=== PATIENT | male | born 1965 | race African-American/Black ===

== ENCOUNTER 2021-06-23 13:20 | Inpatient (IN) ==
[2021-06-23 14:24] LABS: Basophils % 0.7 % (0.0-0.8); Eosinophils # 0.1 10*3/uL (0.0-0.87); Hematocrit 44.9 VOL% (42.0-52.0); Hemoglobin 13.8 GM/DL (14.0-18.0); Immature Granulocytes % 0.3 %; Immature Granulocytes Absolute 0.02 #; Lymphocytes # 1.3 10*3/uL (1.4-4.0); Lymphocytes % 22.4 % (21.2-54.2); Mean Corpuscular HGB Conc 30.7 GM/DL (32-36); Mean Platelet Volume 11.1 FL (9.6-12.0); Monocytes # 0.5 10*3/uL (0.11-0.8); Monocytes % 7.8 % (1.7-12.7); Neutrophils % 66.8 % (38.7-73.9); Platelet Count 300 T/CUMM (130-400); Red Blood Count 5.68 MC/CUMM (3.8-5.5); White Blood Count 5.9 T/CUMM (4-12)
[2021-06-23 14:46] LABS: Alanine Aminotransferase 26 U/L (16-61); Albumin 3.5 G/DL (3.4-5.0); Alkaline Phosphatase 93 U/L (45-117); Aspartate Amino Transferase 24 U/L (0-37); Blood Urea Nitrogen 18 MG/DL (7-18); Calcium 9.5 MG/DL (8.5-10.1); Carbon Dioxide 26 MMOL/L (21-32); Chloride 104 MMOL/L (98-107); Estimated Glom Filtration Rate 63 ML/MIN; Glucose 116 MG/DL (74-106); Osmolality,Calculated 277.7 MOS/KG (273-304); Potassium 3.4 MMOL/L (3.5-5.1); Sodium 138 MMOL/L (136-145)
[2021-06-23] MEDS ORDERED: LABETALOL 20 MG/4 ML SYRINGE IV STA (14:47)
[2021-06-23] MEDS ORDERED: LABETALOL 20 MG/4 ML SYRINGE IV ONE (14:47)
[2021-06-23 15:02] LABS: PT Patient Result 11.4 SECS (10.5-12.0); Partial Thromboplastin Time 26.6 SECS (23.8-32.1)
[2021-06-23] MEDS ORDERED: LABETALOL 100 MG/20 ML VIAL IV ONE (15:22)
[2021-06-23] MEDS ORDERED: hydrALAZINE 20 MG/1 ML VIAL ONE (15:43)
[2021-06-23] MEDS ORDERED: LABETALOL 20 MG/4 ML SYRINGE IV PRN (15:44)
[2021-06-23] MEDS ORDERED: hydrALAZINE 20 MG/1 ML VIAL IV PRN (15:46)
[2021-06-23] MEDS ORDERED: niCARdipine INJ 25 MG in SODIUM CHLORIDE 0.9% 240 ML IV PRN (15:49)
[2021-06-23] MEDS ORDERED: GLUCAGON 1 MG VIAL IM PRN (15:53)
[2021-06-23] MEDS ORDERED: ONDANSETRON 4 MG/2 ML VIAL IV PRN (15:53)
[2021-06-23] MEDS ORDERED: LABETALOL 100 MG/20 ML VIAL IV STA (15:57)
[2021-06-23] MEDS ORDERED: hydrALAZINE 20 MG/1 ML VIAL IV STA (15:58)
[2021-06-23] MEDS ORDERED: DEXTROSE 10% 250 ML BAG IV PRN (16:02)
[2021-06-23 16:37] LABS: Risk Ratio 3.89; Thyroid Stimulating Hormone 3.69 uIU/ml (0.358-3.74)
[2021-06-23] MEDS ORDERED: niCARdipine 25 MG/10 ML VIAL IV ONE (16:51)
[2021-06-23] MEDS ORDERED: LACTATED RINGERS 1,000 ML IV SCH (17:00)
[2021-06-23] MEDS: niCARdipine INJ 25 MG in SODIUM CHLORIDE 0.9% 240 ML IV PRN ×2 (17:00→21:07)
[2021-06-23] MEDS ORDERED: ASPIRIN 300 MG SUPP RECTAL STA ×2 (17:20→22:36)
[2021-06-23] MEDS ORDERED: INSULIN LISPRO 100 UNIT/ML SUBCUT SCH (18:00)
[2021-06-23] MEDS: ASPIRIN CHEW 81 MG TABLET PO SCH (18:33)
[2021-06-23] MEDS ORDERED: ETOMIDATE 20 MG/10 ML VIAL IV ONE ×2 (18:56→19:35)
[2021-06-23] MEDS ORDERED: SUCCINYLCHOLINE 200 MG/10 ML VIAL ONE (18:57)
[2021-06-23] MEDS ORDERED: MIDAZOLAM 100 MG in SODIUM CHLORIDE 0.9% 80 ML IV PRN (19:01)
[2021-06-23] MEDS ORDERED: ROCURONIUM 100 MG/10 ML VIAL IV ONE (19:12)
[2021-06-23] MEDS ORDERED: VECURONIUM 10 MG VIAL IV ONE (19:18)
[2021-06-23] MEDS ORDERED: SUCCINYLCHOLINE 200 MG/10 ML VIAL IV ONE (19:39)
[2021-06-23] MEDS: ENOXAPARIN 40 MG/0.4 ML SYRINGE SUBCUT SCH (20:02)
[2021-06-23 20:10] LABS: ABG Base Excess 2.2 MMOL/L (-2.5-2.5); ABG HCO3 26.4 MMOL/L (20-26); ABG Oxygen Saturation 99.8 % (95-100); ABG PCO2 40.3 MM HG (35-48); ABG PH 7.428 (7.35-7.45); ABG TCO2 23.1 MMOL/L (23-27)
[2021-06-23] MEDS: ATORVASTATIN 80 MG TABLET PO SCH (22:43)
[2021-06-23 23:12] LABS: RBC,Urine 3 /HPF (0-4)
[2021-06-23 23:13] LABS: Barbiturates Screen,Urine Negative (Negative); Benzodiazepines Screen,Urine Negative (Negative); Bilirubin,Urine Negative (Negative); Cannabinoid Screen,Urine Negative (Negative); Glucose,Urine (UA) 250 mg/dL (Negative); Ketones,Urine 15 mg/dL (Negative); Nitrite,Urine Negative (Negative); Opiate Screen,Urine Negative (Negative); Phencyclidine Screen,Urine Negative (Negative); Protein,Urine 100 MG/DL; Urine Appearance Clear (Clear); Urine Color Yellow (Yellow); Urine Specific Gravity 1.015 (1.001-1.035)
[2021-06-23 23:14] LABS: Blood, Urine Trace mg/dL (Negative)
[2021-06-24 03:31] LABS: ABG Base Excess 2.4 MMOL/L (-2.5-2.5); ABG HCO3 26.6 MMOL/L (20-26); ABG Oxygen Saturation 99.8 % (95-100); ABG PH 7.491 (7.35-7.45); ABG TCO2 22.1 MMOL/L (23-27)
[2021-06-24 04:09] LABS: Calcium 8.5 MG/DL (8.5-10.1); Osmolality,Calculated 276.8 MOS/KG (273-304); Potassium 3.7 MMOL/L (3.5-5.1)
[2021-06-24 05:47] LABS: Basophils % 0.4 % (0.0-0.8); Eosinophils % 0.1 % (0.00-10.9); Hematocrit 37.8 VOL% (42.0-52.0); Immature Granulocytes % 0.4 %; Immature Granulocytes Absolute 0.03 #; Lymphocytes # 1.1 10*3/uL (1.4-4.0); Lymphocytes % 12.5 % (21.2-54.2); Mean Corpuscular HGB Conc 31.7 GM/DL (32-36); Mean Corpuscular Volume 78.4 FL (87-102); Mean Platelet Volume 11.2 FL (9.6-12.0); Monocytes # 0.7 10*3/uL (0.11-0.8); Monocytes % 8.3 % (1.7-12.7); Neutrophils % 78.3 % (38.7-73.9); Platelet Count 267 T/CUMM (130-400); Red Blood Count 4.82 MC/CUMM (3.8-5.5); Red Cell Distribution Width 16.1 % (9.3-17.3); White Blood Count 8.4 T/CUMM (4-12)
[2021-06-24] MEDS ORDERED: PANTOPRAZOLE 40 MG TABLET PO SCH (09:00)
[2021-06-24] MEDS: PANTOPRAZOLE 40 MG VIAL IV SCH (09:20)
[2021-06-24] MEDS: ASPIRIN CHEW 81 MG TABLET PO SCH (09:21)
[2021-06-24] MEDS: LACTATED RINGERS 1,000 ML IV SCH (14:03)
[2021-06-24] MEDS: niCARdipine INJ 25 MG in SODIUM CHLORIDE 0.9% 240 ML IV PRN (14:59)
[2021-06-24] MEDS: ENOXAPARIN 40 MG/0.4 ML SYRINGE SUBCUT SCH (18:38)
[2021-06-24] MEDS: ATORVASTATIN 80 MG TABLET PO SCH (20:29)
[2021-06-24] MEDS: ACETAMINOPHEN 325 MG TABLET PO PRN (20:30)
[2021-06-25] MEDS: LACTATED RINGERS 1,000 ML IV SCH ×3 (00:02→21:55)
[2021-06-25 03:40] LABS: ABG HCO3 27.1 MMOL/L (20-26); ABG Oxygen Saturation 99.6 % (95-100); ABG PCO2 35.7 MM HG (35-48); ABG PH 7.476 (7.35-7.45); ABG TCO2 23.4 MMOL/L (23-27)
[2021-06-25 04:38] LABS: Basophils % 0.2 % (0.0-0.8); Hematocrit 38.7 VOL% (42.0-52.0); Hemoglobin 11.8 GM/DL (14.0-18.0); Immature Granulocytes % 0.9 %; Immature Granulocytes Absolute 0.18 #; Lymphocytes # 0.7 10*3/uL (1.4-4.0); Lymphocytes % 3.8 % (21.2-54.2); Mean Corpuscular HGB Conc 30.5 GM/DL (32-36); Mean Platelet Volume 11.5 FL (9.6-12.0); Monocytes # 1.2 10*3/uL (0.11-0.8); Monocytes % 6.4 % (1.7-12.7); Neutrophils % 88.7 % (38.7-73.9); Platelet Count 247 T/CUMM (130-400); Red Blood Count 4.78 MC/CUMM (3.8-5.5); Red Cell Distribution Width 16.7 % (9.3-17.3); White Blood Count 19.4 T/CUMM (4-12)
[2021-06-25 05:00] LABS: Calcium 8.4 MG/DL (8.5-10.1); Osmolality,Calculated 287.3 MOS/KG (273-304); Potassium 3.2 MMOL/L (3.5-5.1)
[2021-06-25 05:18] LABS: Band Neutrophils 1 % (0-10); Hypochromia Slight; Lymphocytes 2 % (20-55); Microcytosis Slight; Platelet Estimate Adequate; Total Cells Counted 100
[2021-06-25] MEDS ORDERED: MAGNESIUM SULF RIDER 4 GM/100 ML PREMIX IV PRN (08:33)
[2021-06-25] MEDS: PANTOPRAZOLE 40 MG VIAL IV SCH (08:46)
[2021-06-25] MEDS: METOPROLOL TARTRATE 25 MG TABLET PER TUBE SCH ×2 (08:47→21:28)
[2021-06-25] MEDS: amLODIPine 5 MG TABLET PER TUBE SCH (08:47)
[2021-06-25] MEDS: POTASSIUM BICARB EFFERVESCENT 20 MEQ TAB.EFF PER TUBE PRN ×4 (08:47→21:27)
[2021-06-25] MEDS: MAGNESIUM SULF RIDER 2 GM/50 ML PREMIX IV PRN (08:47)
[2021-06-25] MEDS: ASPIRIN CHEW 81 MG TABLET PO SCH (08:47)
[2021-06-25] MEDS: hydrALAZINE 20 MG/1 ML VIAL IV PRN ×2 (10:12→17:15)
[2021-06-25] MEDS ORDERED: chlorproMAZINE 25 MG TABLET PO SCH (15:00)
[2021-06-25] MEDS: ENOXAPARIN 40 MG/0.4 ML SYRINGE SUBCUT SCH (17:15)
[2021-06-25] MEDS: ACETAMINOPHEN 325 MG TABLET PO PRN (18:20)
[2021-06-25] MEDS: cefTRIAXone 1,000 MG in SODIUM CHLORIDE 0.9% 100 ML IV SCH (21:27)
[2021-06-25] MEDS: chlorproMAZINE 25 MG TABLET PO PRN (21:28)
[2021-06-25] MEDS: ATORVASTATIN 80 MG TABLET PO SCH (21:28)
[2021-06-25] MEDS ORDERED: LORazepam 2 MG/1 ML VIAL IV ONE (22:47)
[2021-06-26] MEDS: LORazepam 2 MG/1 ML VIAL IV PRN ×2 (03:32→17:40)
[2021-06-26 04:11] LABS: ABG Base Excess 3.8 MMOL/L (-2.5-2.5); ABG HCO3 27.9 MMOL/L (20-26); ABG Oxygen Saturation 98.9 % (95-100); ABG PCO2 40.8 MM HG (35-48); ABG PH 7.447 (7.35-7.45); ABG TCO2 25.2 MMOL/L (23-27); Allen Test Positive; Pt O2 Delivery Device Ventilator
[2021-06-26] MEDS: hydrALAZINE 20 MG/1 ML VIAL IV PRN (04:11)
[2021-06-26] MEDS: ACETAMINOPHEN 325 MG TABLET PO PRN (04:46)
[2021-06-26 06:57] LABS: Basophils % 0.3 % (0.0-0.8); Eosinophils % 0.2 % (0.00-10.9); Hemoglobin 10.7 GM/DL (14.0-18.0); Immature Granulocytes % 0.8 %; Immature Granulocytes Absolute 0.09 #; Lymphocytes # 0.5 10*3/uL (1.4-4.0); Lymphocytes % 3.8 % (21.2-54.2); Mean Corpuscular HGB Conc 30.6 GM/DL (32-36); Mean Corpuscular Volume 80.8 FL (87-102); Mean Platelet Volume 10.6 FL (9.6-12.0); Monocytes # 0.7 10*3/uL (0.11-0.8); Monocytes % 5.9 % (1.7-12.7); Platelet Count 201 T/CUMM (130-400); Red Blood Count 4.33 MC/CUMM (3.8-5.5); Red Cell Distribution Width 16.8 % (9.3-17.3); White Blood Count 11.8 T/CUMM (4-12)
[2021-06-26 07:06] LABS: Calcium 8.3 MG/DL (8.5-10.1); Osmolality,Calculated 282.7 MOS/KG (273-304); Potassium 3.6 MMOL/L (3.5-5.1)
[2021-06-26] MEDS: LACTATED RINGERS 1,000 ML IV SCH ×3 (07:09→17:40)
[2021-06-26 07:17] LABS: Calcium 8.5 MG/DL (8.5-10.1); Osmolality,Calculated 281.7 MOS/KG (273-304); Potassium 3.6 MMOL/L (3.5-5.1)
[2021-06-26] MEDS: chlorproMAZINE 25 MG TABLET PO PRN (08:00)
[2021-06-26] MEDS: METOPROLOL TARTRATE 25 MG TABLET PER TUBE SCH ×2 (08:03→21:22)
[2021-06-26] MEDS: amLODIPine 5 MG TABLET PER TUBE SCH (08:03)
[2021-06-26] MEDS: PANTOPRAZOLE 40 MG VIAL IV SCH (08:03)
[2021-06-26] MEDS: ASPIRIN CHEW 81 MG TABLET PO SCH (08:03)
[2021-06-26] MEDS: POTASSIUM BICARB EFFERVESCENT 20 MEQ TAB.EFF PER TUBE PRN (08:03)
[2021-06-26 09:22] LABS: Hypochromia 2+; Lymphocytes 3 % (20-55); Nucleated Red Blood Cells 1 (0-5); Total Cells Counted 100
[2021-06-26 09:23] LABS: Microcytosis 1+; Platelet Estimate Normal; Target Cells Few; Tear Drop Cells Few
[2021-06-26] MEDS ORDERED: chlorproMAZINE 25 MG TABLET PO PRN (13:28)
[2021-06-26 15:26] LABS: ABG Base Excess 3.3 MMOL/L (-2.5-2.5); ABG HCO3 27.4 MMOL/L (20-26); ABG PCO2 41.4 MM HG (35-48); ABG PH 7.435 (7.35-7.45); ABG TCO2 25.1 MMOL/L (23-27)
[2021-06-26] MEDS: ENOXAPARIN 40 MG/0.4 ML SYRINGE SUBCUT SCH (17:40)
[2021-06-26] MEDS: ATORVASTATIN 80 MG TABLET PO SCH (21:21)
[2021-06-26] MEDS: cefTRIAXone 1,000 MG in SODIUM CHLORIDE 0.9% 100 ML IV SCH (21:22)
[2021-06-27 04:06] LABS: ABG Base Excess 3.5 MMOL/L (-2.5-2.5); ABG HCO3 27.6 MMOL/L (20-26); ABG Oxygen Saturation 99.4 % (95-100); ABG PCO2 39.4 MM HG (35-48); ABG PH 7.454 (7.35-7.45)
[2021-06-27] MEDS: LACTATED RINGERS 1,000 ML IV SCH ×4 (04:35→23:46)
[2021-06-27 04:54] LABS: Basophils % 0.2 % (0.0-0.8); Eosinophils # 0.3 10*3/uL (0.0-0.87); Eosinophils % 2.8 % (0.00-10.9); Hematocrit 31.5 VOL% (42.0-52.0); Hemoglobin 9.7 GM/DL (14.0-18.0); Immature Granulocytes % 0.3 %; Immature Granulocytes Absolute 0.03 #; Lymphocytes # 0.7 10*3/uL (1.4-4.0); Lymphocytes % 7.3 % (21.2-54.2); Mean Corpuscular HGB Conc 30.8 GM/DL (32-36); Mean Corpuscular Volume 80.2 FL (87-102); Mean Platelet Volume 10.6 FL (9.6-12.0); Monocytes # 0.5 10*3/uL (0.11-0.8); Monocytes % 5.5 % (1.7-12.7); Neutrophils % 83.9 % (38.7-73.9); Platelet Count 190 T/CUMM (130-400); Red Blood Count 3.93 MC/CUMM (3.8-5.5); Red Cell Distribution Width 16.9 % (9.3-17.3); White Blood Count 9.8 T/CUMM (4-12)
[2021-06-27] MEDS: LORazepam 2 MG/1 ML VIAL IV PRN ×2 (05:01→08:37)
[2021-06-27 05:21] LABS: Calcium 8.2 MG/DL (8.5-10.1); Osmolality,Calculated 287.5 MOS/KG (273-304); Potassium 3.7 MMOL/L (3.5-5.1)
[2021-06-27 05:22] LABS: Eosinophils 2 % (0-10); Hypochromia 1+; Lymphocytes 8 % (20-55); Microcytosis 1+; Platelet Estimate Adequate; Total Cells Counted 100
[2021-06-27] MEDS: hydrALAZINE 20 MG/1 ML VIAL IV PRN ×2 (05:35→11:09)
[2021-06-27] MEDS: POTASSIUM BICARB EFFERVESCENT 20 MEQ TAB.EFF PER TUBE PRN (06:14)
[2021-06-27] MEDS ORDERED: HALOPERIDOL 5 MG/ML AMP IV PRN (08:43)
[2021-06-27] MEDS ORDERED: HALOPERIDOL 5 MG/ML AMP IM PRN (09:00)
[2021-06-27] MEDS: HALOPERIDOL 5 MG/ML AMP IV PRN (09:01)
[2021-06-27] MEDS: PANTOPRAZOLE 40 MG VIAL IV SCH (09:01)
[2021-06-27] MEDS: amLODIPine 5 MG TABLET PER TUBE SCH (09:01)
[2021-06-27] MEDS: DOCUSATE SODIUM 100 MG/10 ML UDCUP PO SCH ×2 (09:01→22:01)
[2021-06-27] MEDS: ASPIRIN CHEW 81 MG TABLET PO SCH (09:01)
[2021-06-27] MEDS: METOPROLOL TARTRATE 25 MG TABLET PER TUBE SCH ×2 (09:01→22:01)
[2021-06-27] MEDS ORDERED: DEXMEDETOMIDINE 200 MCG in SODIUM CHLORIDE 0.9% 48 ML IV PRN (09:18)
[2021-06-27] MEDS: DEXMEDETOMIDINE 400 MCG in SODIUM CHLORIDE 0.9% 96 ML IV PRN (15:04)
[2021-06-27 16:51] LABS: Calcium 8.4 MG/DL (8.5-10.1); Osmolality,Calculated 287.4 MOS/KG (273-304); Potassium 4.4 MMOL/L (3.5-5.1)
[2021-06-27] MEDS: ENOXAPARIN 40 MG/0.4 ML SYRINGE SUBCUT SCH (18:11)
[2021-06-27] MEDS: cefTRIAXone 1,000 MG in SODIUM CHLORIDE 0.9% 100 ML IV SCH (22:01)
[2021-06-27] MEDS: ATORVASTATIN 80 MG TABLET PO SCH (22:01)
[2021-06-28] MEDS: INSULIN REGULAR 100 UNIT/ML SUBCUT SCH ×4 (00:10→18:12)
[2021-06-28] MEDS: DEXMEDETOMIDINE 400 MCG in SODIUM CHLORIDE 0.9% 96 ML IV PRN ×3 (00:30→20:50)
[2021-06-28] MEDS: LACTATED RINGERS 1,000 ML IV SCH ×3 (02:00→22:15)
[2021-06-28] MEDS: hydrALAZINE 20 MG/1 ML VIAL IV PRN ×2 (03:38→22:12)
[2021-06-28 03:43] LABS: ABG Base Excess 2.4 MMOL/L (-2.5-2.5); ABG HCO3 26.5 MMOL/L (20-26); ABG Oxygen Saturation 99.1 % (95-100); ABG PCO2 46.9 MM HG (35-48); ABG PH 7.383 (7.35-7.45); ABG TCO2 25.5 MMOL/L (23-27)
[2021-06-28 06:01] LABS: Basophils % 0.6 % (0.0-0.8); Eosinophils # 0.3 10*3/uL (0.0-0.87); Eosinophils % 4.5 % (0.00-10.9); Hematocrit 33.6 VOL% (42.0-52.0); Immature Granulocytes % 1.1 %; Immature Granulocytes Absolute 0.07 #; Lymphocytes # 0.5 10*3/uL (1.4-4.0); Lymphocytes % 7.8 % (21.2-54.2); Mean Corpuscular HGB Conc 29.8 GM/DL (32-36); Mean Platelet Volume 11.9 FL (9.6-12.0); Monocytes # 0.5 10*3/uL (0.11-0.8); Monocytes % 7.7 % (1.7-12.7); Neutrophils % 78.3 % (38.7-73.9); Platelet Count 212 T/CUMM (130-400); Red Cell Distribution Width 16.9 % (9.3-17.3); White Blood Count 6.7 T/CUMM (4-12)
[2021-06-28 06:28] LABS: Band Neutrophils 2 % (0-10); Eosinophils 3 % (0-10); Hypochromia 1+; Lymphocytes 6 % (20-55); Microcytosis 1+; Total Cells Counted 100
[2021-06-28 06:29] LABS: Platelet Estimate Normal
[2021-06-28 06:35] LABS: Calcium 8.6 MG/DL (8.5-10.1); Osmolality,Calculated 289.4 MOS/KG (273-304); Potassium 4.5 MMOL/L (3.5-5.1)
[2021-06-28 06:38] LABS: Calcium 8.2 MG/DL (8.5-10.1); Osmolality,Calculated 288.4 MOS/KG (273-304); Potassium 4.5 MMOL/L (3.5-5.1)
[2021-06-28] MEDS: METOPROLOL TARTRATE 25 MG TABLET PER TUBE SCH ×2 (09:42→20:52)
[2021-06-28] MEDS: amLODIPine 5 MG TABLET PER TUBE SCH (09:42)
[2021-06-28] MEDS: ASPIRIN CHEW 81 MG TABLET PO SCH (09:42)
[2021-06-28] MEDS: DOCUSATE SODIUM 100 MG/10 ML UDCUP PO SCH ×2 (09:42→20:52)
[2021-06-28] MEDS: PANTOPRAZOLE 40 MG VIAL IV SCH (09:42)
[2021-06-28] MEDS: ENOXAPARIN 40 MG/0.4 ML SYRINGE SUBCUT SCH (18:14)
[2021-06-28] MEDS: ATORVASTATIN 80 MG TABLET PO SCH (20:52)
[2021-06-28] MEDS: cefTRIAXone 1,000 MG in SODIUM CHLORIDE 0.9% 100 ML IV SCH (20:53)
[2021-06-28] MEDS: LORazepam 2 MG/1 ML VIAL IV PRN (21:12)
[2021-06-29] MEDS: INSULIN REGULAR 100 UNIT/ML SUBCUT SCH ×4 (00:46→18:01)
[2021-06-29] MEDS: HALOPERIDOL 5 MG/ML AMP IV PRN ×3 (00:48→17:25)
[2021-06-29] MEDS: LORazepam 2 MG/1 ML VIAL IV PRN (03:17)
[2021-06-29] MEDS ORDERED: LABETALOL 20 MG/4 ML SYRINGE IV ONE (03:32)
[2021-06-29 04:01] LABS: ABG Base Excess 1.5 MMOL/L (-2.5-2.5); ABG HCO3 25.8 MMOL/L (20-26); ABG Oxygen Saturation 99.4 % (95-100); ABG PCO2 34.5 MM HG (35-48); ABG PH 7.467 (7.35-7.45); ABG TCO2 22.6 MMOL/L (23-27)
[2021-06-29 05:21] LABS: Basophils % 0.3 % (0.0-0.8); Eosinophils # 0.2 10*3/uL (0.0-0.87); Eosinophils % 1.9 % (0.00-10.9); Hematocrit 32.3 VOL% (42.0-52.0); Hemoglobin 9.8 GM/DL (14.0-18.0); Immature Granulocytes % 1.4 %; Immature Granulocytes Absolute 0.12 #; Lymphocytes # 0.6 10*3/uL (1.4-4.0); Lymphocytes % 6.6 % (21.2-54.2); Mean Corpuscular HGB Conc 30.3 GM/DL (32-36); Mean Corpuscular Volume 80.8 FL (87-102); Mean Platelet Volume 11.8 FL (9.6-12.0); Monocytes # 0.8 10*3/uL (0.11-0.8); Monocytes % 8.5 % (1.7-12.7); NRBC # 0.02 10*3/uL; Neutrophils % 81.3 % (38.7-73.9); Platelet Count 209 T/CUMM (130-400); Red Cell Distribution Width 16.7 % (9.3-17.3); White Blood Count 8.9 T/CUMM (4-12)
[2021-06-29 05:39] LABS: Calcium 8.4 MG/DL (8.5-10.1); Osmolality,Calculated 287.7 MOS/KG (273-304); Potassium 4.2 MMOL/L (3.5-5.1)
[2021-06-29 06:03] LABS: Hypochromia 2+; Lymphocytes 5 % (20-55); Microcytosis 1+; Nucleated Red Blood Cells 1 (0-5); Total Cells Counted 100
[2021-06-29 06:04] LABS: Platelet Estimate Normal
[2021-06-29] MEDS: MAGNESIUM SULF RIDER 2 GM/50 ML PREMIX IV PRN (06:31)
[2021-06-29] MEDS: DEXMEDETOMIDINE 400 MCG in SODIUM CHLORIDE 0.9% 96 ML IV PRN ×2 (07:00→20:15)
[2021-06-29] MEDS: LACTATED RINGERS 1,000 ML IV SCH ×2 (07:20→17:23)
[2021-06-29] MEDS: PANTOPRAZOLE 40 MG VIAL IV SCH (09:31)
[2021-06-29] MEDS: ASPIRIN CHEW 81 MG TABLET PO SCH (09:32)
[2021-06-29] MEDS: METOPROLOL TARTRATE 25 MG TABLET PER TUBE SCH ×2 (09:32→21:11)
[2021-06-29] MEDS: DOCUSATE SODIUM 100 MG/10 ML UDCUP PO SCH ×2 (09:32→21:11)
[2021-06-29] MEDS: amLODIPine 5 MG TABLET PER TUBE SCH (09:32)
[2021-06-29] MEDS: ACETAMINOPHEN 325 MG TABLET PO PRN (13:29)
[2021-06-29] MEDS: LEVOFLOXACIN INJ 750 MG/150 ML PREMIX IV SCH (17:23)
[2021-06-29] MEDS: ENOXAPARIN 40 MG/0.4 ML SYRINGE SUBCUT SCH (17:24)
[2021-06-29] MEDS: ATORVASTATIN 80 MG TABLET PO SCH (21:11)
[2021-06-29] MEDS: chlorproMAZINE 25 MG TABLET PO SCH (21:14)
[2021-06-30] MEDS: INSULIN REGULAR 100 UNIT/ML SUBCUT SCH ×4 (00:37→17:54)
[2021-06-30] MEDS ORDERED: FUROSEMIDE 20 MG/2 ML VIAL IV ONE ×2 (01:45→03:15)
[2021-06-30 02:28] LABS: Alanine Aminotransferase 228 U/L (16-61); Albumin 1.5 G/DL (3.4-5.0); Alkaline Phosphatase 143 U/L (45-117); Aspartate Amino Transferase 150 U/L (0-37); Bilirubin,Total < 0.39 MG/DL (0.20-1.00); Blood Urea Nitrogen 32 MG/DL (7-18); Calcium 8.1 MG/DL (8.5-10.1); Carbon Dioxide 28 MMOL/L (21-32); Chloride 106 MMOL/L (98-107); Estimated Glom Filtration Rate 80 ML/MIN; Glucose 193 MG/DL (74-106); Potassium 4.6 MMOL/L (3.5-5.1); Sodium 136 MMOL/L (136-145); Total Protein 6.1 G/DL (6.4-8.2)
[2021-06-30] MEDS ORDERED: ALBUMIN 25% 25 GM/100 ML VIAL IV ONE (02:38)
[2021-06-30 04:52] LABS: Basophils % 0.4 % (0.0-0.8); Eosinophils # 0.2 10*3/uL (0.0-0.87); Eosinophils % 1.6 % (0.00-10.9); Hematocrit 31.5 VOL% (42.0-52.0); Hemoglobin 9.5 GM/DL (14.0-18.0); Immature Granulocytes % 2.3 %; Immature Granulocytes Absolute 0.22 #; Lymphocytes # 0.8 10*3/uL (1.4-4.0); Lymphocytes % 8.8 % (21.2-54.2); Mean Corpuscular HGB Conc 30.2 GM/DL (32-36); Mean Platelet Volume 11.3 FL (9.6-12.0); Monocytes # 0.9 10*3/uL (0.11-0.8); Monocytes % 9.9 % (1.7-12.7); Platelet Count 234 T/CUMM (130-400); Red Blood Count 3.89 MC/CUMM (3.8-5.5); Red Cell Distribution Width 16.7 % (9.3-17.3); White Blood Count 9.4 T/CUMM (4-12)
[2021-06-30 05:06] LABS: Calcium 8.2 MG/DL (8.5-10.1); Potassium 4.4 MMOL/L (3.5-5.1)
[2021-06-30 05:29] LABS: Eosinophils 1 % (0-10); Hypochromia 1+; Lymphocytes 3 % (20-55); Microcytosis 1+; Platelet Estimate Adequate; Total Cells Counted 100
[2021-06-30 05:39] LABS: ABG Base Excess 3.4 MMOL/L (-2.5-2.5); ABG HCO3 27.4 MMOL/L (20-26); ABG PCO2 43.1 MM HG (35-48); ABG PH 7.423 (7.35-7.45); ABG TCO2 25.6 MMOL/L (23-27)
[2021-06-30] MEDS: chlorproMAZINE 25 MG TABLET PO SCH ×2 (08:06→20:30)
[2021-06-30] MEDS: METOPROLOL TARTRATE 25 MG TABLET PER TUBE SCH ×2 (08:06→20:30)
[2021-06-30] MEDS: ASPIRIN CHEW 81 MG TABLET PO SCH (08:06)
[2021-06-30] MEDS: DOCUSATE SODIUM 100 MG/10 ML UDCUP PO SCH ×2 (08:06→20:30)
[2021-06-30] MEDS: PANTOPRAZOLE 40 MG VIAL IV SCH (08:06)
[2021-06-30] MEDS: amLODIPine 5 MG TABLET PER TUBE SCH (08:06)
[2021-06-30] MEDS: hydrALAZINE 20 MG/1 ML VIAL IV PRN (09:12)
[2021-06-30] MEDS: DEXMEDETOMIDINE 200 MCG in SODIUM CHLORIDE 0.9% 48 ML IV PRN ×3 (14:08→23:05)
[2021-06-30] MEDS: LEVOFLOXACIN INJ 750 MG/150 ML PREMIX IV SCH (14:39)
[2021-06-30] MEDS: ENOXAPARIN 40 MG/0.4 ML SYRINGE SUBCUT SCH (17:54)
[2021-06-30] MEDS: ATORVASTATIN 80 MG TABLET PO SCH (20:30)
[2021-07-01] MEDS: INSULIN REGULAR 100 UNIT/ML SUBCUT SCH ×5 (00:16→23:19)
[2021-07-01] MEDS: DEXMEDETOMIDINE 200 MCG in SODIUM CHLORIDE 0.9% 48 ML IV PRN (04:03)
[2021-07-01 04:27] LABS: ABG Base Excess 3.4 MMOL/L (-2.5-2.5); ABG HCO3 27.5 MMOL/L (20-26); ABG Oxygen Saturation 98.5 % (95-100); ABG PCO2 43.7 MM HG (35-48); ABG TCO2 25.7 MMOL/L (23-27)
[2021-07-01 04:49] LABS: Basophils % 0.3 % (0.0-0.8); Eosinophils # 0.5 10*3/uL (0.0-0.87); Hematocrit 33.8 VOL% (42.0-52.0); Hemoglobin 10.2 GM/DL (14.0-18.0); Immature Granulocytes % 4.6 %; Immature Granulocytes Absolute 0.55 #; Lymphocytes # 1.2 10*3/uL (1.4-4.0); Lymphocytes % 10.2 % (21.2-54.2); Mean Corpuscular HGB Conc 30.2 GM/DL (32-36); Mean Corpuscular Volume 80.9 FL (87-102); Mean Platelet Volume 11.9 FL (9.6-12.0); Monocytes # 1.4 10*3/uL (0.11-0.8); Monocytes % 11.6 % (1.7-12.7); NRBC # 0.02 10*3/uL; Neutrophils % 69.3 % (38.7-73.9); Platelet Count 210 T/CUMM (130-400); Red Blood Count 4.18 MC/CUMM (3.8-5.5); Red Cell Distribution Width 16.8 % (9.3-17.3); White Blood Count 11.9 T/CUMM (4-12)
[2021-07-01 05:01] LABS: Calcium 8.6 MG/DL (8.5-10.1); Osmolality,Calculated 287.2 MOS/KG (273-304); Potassium 4.6 MMOL/L (3.5-5.1)
[2021-07-01 05:08] LABS: Band Neutrophils 3 % (0-10); Eosinophils 4 % (0-10); Hypochromia Slight; Lymphocytes 5 % (20-55); Microcytosis Slight; Platelet Estimate Adequate; Total Cells Counted 100
[2021-07-01] MEDS: HALOPERIDOL 5 MG/ML AMP IV PRN (05:30)
[2021-07-01] MEDS ORDERED: POTASSIUM CHLORIDE 20 MEQ TABLET PO SCH ×2 (08:00→10:00)
[2021-07-01] MEDS: PANTOPRAZOLE 40 MG VIAL IV SCH (09:12)
[2021-07-01] MEDS: METOPROLOL TARTRATE 25 MG TABLET PER TUBE SCH (09:13)
[2021-07-01] MEDS: DOCUSATE SODIUM 100 MG/10 ML UDCUP PO SCH ×2 (09:13→20:40)
[2021-07-01] MEDS: amLODIPine 5 MG TABLET PER TUBE SCH (09:13)
[2021-07-01] MEDS: chlorproMAZINE 25 MG TABLET PO SCH ×2 (09:13→20:40)
[2021-07-01] MEDS: ASPIRIN CHEW 81 MG TABLET PO SCH (09:13)
[2021-07-01] MEDS: LACTATED RINGERS 1,000 ML IV SCH ×2 (09:59→19:30)
[2021-07-01] MEDS: hydrALAZINE 20 MG/1 ML VIAL IV PRN ×2 (11:04→17:06)
[2021-07-01] MEDS: LEVOFLOXACIN INJ 750 MG/150 ML PREMIX IV SCH (15:13)
[2021-07-01] MEDS: amLODIPine 10 MG TABLET PER TUBE SCH (15:39)
[2021-07-01] MEDS: METOPROLOL TARTRATE 50 MG TABLET PER TUBE SCH ×2 (15:39→20:40)
[2021-07-01] MEDS ORDERED: FUROSEMIDE 40 MG/5 ML UDCUP PER TUBE SCH (16:00)
[2021-07-01] MEDS: FUROSEMIDE 40 MG TABLET PER TUBE SCH (17:11)
[2021-07-01] MEDS: ATORVASTATIN 80 MG TABLET PO SCH (20:40)
[2021-07-02] MEDS: HALOPERIDOL 5 MG/ML AMP IV PRN ×2 (01:47→06:20)
[2021-07-02 03:58] LABS: Basophils % 0.2 % (0.0-0.8); Eosinophils # 0.5 10*3/uL (0.0-0.87); Eosinophils % 3.9 % (0.00-10.9); Hematocrit 33.1 VOL% (42.0-52.0); Immature Granulocytes % 4.8 %; Immature Granulocytes Absolute 0.58 #; Lymphocytes # 0.8 10*3/uL (1.4-4.0); Mean Corpuscular HGB Conc 30.2 GM/DL (32-36); Mean Corpuscular Volume 80.5 FL (87-102); Mean Platelet Volume 11.5 FL (9.6-12.0); Monocytes # 1.6 10*3/uL (0.11-0.8); Monocytes % 13.2 % (1.7-12.7); Neutrophils % 70.9 % (38.7-73.9); Platelet Count 256 T/CUMM (130-400); Red Blood Count 4.11 MC/CUMM (3.8-5.5); Red Cell Distribution Width 16.9 % (9.3-17.3); White Blood Count 12.1 T/CUMM (4-12)
[2021-07-02 04:06] LABS: ABG Base Excess 3.6 MMOL/L (-2.5-2.5); ABG HCO3 27.7 MMOL/L (20-26); ABG Oxygen Saturation 98.8 % (95-100); ABG PCO2 40.2 MM HG (35-48); ABG PH 7.456 (7.35-7.45); ABG PO2 141.6 MM HG (80-95); ABG TCO2 28.9 MMOL/L (23-27); Allen Test Positive; Pt O2 Delivery Device Ventilator
[2021-07-02 04:17] LABS: Calcium 8.9 MG/DL (8.5-10.1); Osmolality,Calculated 282.1 MOS/KG (273-304); Potassium 4.5 MMOL/L (3.5-5.1)
[2021-07-02] MEDS: hydrALAZINE 20 MG/1 ML VIAL IV PRN ×2 (04:34→22:38)
[2021-07-02 04:52] LABS: Eosinophils 3 % (0-10); Lymphocytes 9 % (20-55); Total Cells Counted 100
[2021-07-02 04:53] LABS: Hypochromia 1+; Platelet Estimate Adequate
[2021-07-02] MEDS: INSULIN REGULAR 100 UNIT/ML SUBCUT SCH ×3 (05:24→17:55)
[2021-07-02] MEDS: LACTATED RINGERS 1,000 ML IV SCH ×2 (05:44→15:45)
[2021-07-02] MEDS ORDERED: MIDAZOLAM 2 MG/2 ML VIAL IV ONE (07:00)
[2021-07-02] MEDS ORDERED: MIDAZOLAM 10 MG/2 ML VIAL ONE (07:03)
[2021-07-02] MEDS: PANTOPRAZOLE 40 MG VIAL IV SCH (09:20)
[2021-07-02] MEDS: METOPROLOL TARTRATE 50 MG TABLET PER TUBE SCH (09:25)
[2021-07-02] MEDS: ASPIRIN CHEW 81 MG TABLET PO SCH (09:25)
[2021-07-02] MEDS: chlorproMAZINE 25 MG TABLET PO SCH ×2 (09:25→20:13)
[2021-07-02] MEDS: amLODIPine 10 MG TABLET PER TUBE SCH (09:25)
[2021-07-02] MEDS: FUROSEMIDE 40 MG TABLET PER TUBE SCH (09:25)
[2021-07-02] MEDS: DOCUSATE SODIUM 100 MG/10 ML UDCUP PO SCH ×2 (09:25→20:13)
[2021-07-02] MEDS: LEVOFLOXACIN INJ 750 MG/150 ML PREMIX IV SCH (13:35)
[2021-07-02] MEDS: lisinopriL 20 MG TABLET PER TUBE SCH (13:35)
[2021-07-02] MEDS: ACETAMINOPHEN 325 MG TABLET PO PRN (13:35)
[2021-07-02] MEDS: ENOXAPARIN 40 MG/0.4 ML SYRINGE SUBCUT SCH (18:05)
[2021-07-02] MEDS: ATORVASTATIN 80 MG TABLET PO SCH (20:13)
[2021-07-02] MEDS: METOPROLOL TARTRATE 100 MG TABLET PER TUBE SCH (20:13)
[2021-07-02] MEDS: LORazepam 2 MG/1 ML VIAL IV PRN (20:14)
[2021-07-03] MEDS: INSULIN REGULAR 100 UNIT/ML SUBCUT SCH ×4 (00:43→18:00)
[2021-07-03] MEDS: LACTATED RINGERS 1,000 ML IV SCH (01:11)
[2021-07-03 03:44] LABS: ABG Base Excess 4.3 MMOL/L (-2.5-2.5); ABG HCO3 28.3 MMOL/L (20-26); ABG Oxygen Saturation 99.1 % (95-100); ABG PCO2 42.1 MM HG (35-48); ABG PH 7.444 (7.35-7.45)
[2021-07-03] MEDS: HALOPERIDOL 5 MG/ML AMP IV PRN ×3 (04:18→14:00)
[2021-07-03 04:20] LABS: Basophils # 0.1 10*3/uL (0.0-0.2); Basophils % 0.4 % (0.0-0.8); Eosinophils # 0.5 10*3/uL (0.0-0.87); Eosinophils % 3.8 % (0.00-10.9); Hematocrit 33.8 VOL% (42.0-52.0); Hemoglobin 10.3 GM/DL (14.0-18.0); Immature Granulocytes % 6.7 %; Immature Granulocytes Absolute 0.81 #; Lymphocytes # 1.1 10*3/uL (1.4-4.0); Lymphocytes % 9.3 % (21.2-54.2); Mean Corpuscular HGB Conc 30.5 GM/DL (32-36); Mean Corpuscular Volume 79.2 FL (87-102); Mean Platelet Volume 11.1 FL (9.6-12.0); Monocytes # 1.5 10*3/uL (0.11-0.8); Monocytes % 12.2 % (1.7-12.7); NRBC # 0.02 10*3/uL; Neutrophils % 67.6 % (38.7-73.9); Platelet Count 301 T/CUMM (130-400); Red Blood Count 4.27 MC/CUMM (3.8-5.5); White Blood Count 12.1 T/CUMM (4-12)
[2021-07-03 04:31] LABS: Calcium 8.7 MG/DL (8.5-10.1); Osmolality,Calculated 279.4 MOS/KG (273-304); Potassium 4.6 MMOL/L (3.5-5.1)
[2021-07-03 04:50] LABS: Band Neutrophils 1 % (0-10); Lymphocytes 10 % (20-55); Platelet Estimate Adequate; Total Cells Counted 100
[2021-07-03 04:51] LABS: Hypochromia 1+; Microcytosis 1+
[2021-07-03] MEDS: DOCUSATE SODIUM 100 MG/10 ML UDCUP PO SCH ×2 (08:40→21:19)
[2021-07-03] MEDS: FUROSEMIDE 40 MG TABLET PER TUBE SCH (08:40)
[2021-07-03] MEDS: PANTOPRAZOLE 40 MG VIAL IV SCH (08:40)
[2021-07-03] MEDS: lisinopriL 20 MG TABLET PER TUBE SCH (08:40)
[2021-07-03] MEDS: chlorproMAZINE 25 MG TABLET PO SCH ×2 (08:40→21:20)
[2021-07-03] MEDS: ASPIRIN CHEW 81 MG TABLET PO SCH (08:40)
[2021-07-03] MEDS: amLODIPine 10 MG TABLET PER TUBE SCH (08:40)
[2021-07-03] MEDS: METOPROLOL TARTRATE 100 MG TABLET PER TUBE SCH ×2 (08:40→21:19)
[2021-07-03] MEDS: SODIUM CHLORIDE 1 GM TABLET PER TUBE SCH ×2 (08:50→21:19)
[2021-07-03] MEDS: LEVOFLOXACIN INJ 750 MG/150 ML PREMIX IV SCH (14:50)
[2021-07-03] MEDS: ENOXAPARIN 40 MG/0.4 ML SYRINGE SUBCUT SCH (18:00)
[2021-07-03] MEDS: ATORVASTATIN 80 MG TABLET PO SCH (21:19)
[2021-07-04] MEDS: INSULIN REGULAR 100 UNIT/ML SUBCUT SCH ×4 (01:47→18:00)
[2021-07-04 03:08] LABS: ABG Base Excess 4.7 MMOL/L (-2.5-2.5); ABG HCO3 28.6 MMOL/L (20-26); ABG Oxygen Saturation 98.5 % (95-100); ABG PCO2 46.2 MM HG (35-48); ABG PH 7.417 (7.35-7.45); ABG TCO2 27.4 MMOL/L (23-27); Allen Test Positive; Pt O2 Delivery Device Ventilator
[2021-07-04 04:11] LABS: Calcium 8.6 MG/DL (8.5-10.1); Potassium 4.3 MMOL/L (3.5-5.1)
[2021-07-04 04:21] LABS: Basophils % 0.4 % (0.0-0.8); Eosinophils # 0.4 10*3/uL (0.0-0.87); Eosinophils % 3.4 % (0.00-10.9); Hematocrit 31.4 VOL% (42.0-52.0); Hemoglobin 9.5 GM/DL (14.0-18.0); Immature Granulocytes % 6.5 %; Immature Granulocytes Absolute 0.71 #; Lymphocytes # 1.3 10*3/uL (1.4-4.0); Lymphocytes % 12.1 % (21.2-54.2); Mean Corpuscular HGB Conc 30.3 GM/DL (32-36); Mean Corpuscular Volume 79.7 FL (87-102); Mean Platelet Volume 12.1 FL (9.6-12.0); Monocytes # 1.5 10*3/uL (0.11-0.8); Neutrophils % 63.6 % (38.7-73.9); Red Blood Count 3.94 MC/CUMM (3.8-5.5); Red Cell Distribution Width 17.1 % (9.3-17.3); White Blood Count 10.9 T/CUMM (4-12)
[2021-07-04 04:23] LABS: Platelet Count 228 T/CUMM (130-400)
[2021-07-04 04:36] LABS: Eosinophils 3 % (0-10); Hypochromia 1+; Lymphocytes 11 % (20-55); Platelet Estimate Adequate; Total Cells Counted 100
[2021-07-04 04:37] LABS: Microcytosis 1+
[2021-07-04] MEDS: ASPIRIN CHEW 81 MG TABLET PO SCH (08:30)
[2021-07-04] MEDS: FUROSEMIDE 40 MG TABLET PER TUBE SCH (08:30)
[2021-07-04] MEDS: amLODIPine 10 MG TABLET PER TUBE SCH (08:30)
[2021-07-04] MEDS: SODIUM CHLORIDE 1 GM TABLET PER TUBE SCH ×2 (08:30→20:28)
[2021-07-04] MEDS: DOCUSATE SODIUM 100 MG/10 ML UDCUP PO SCH ×2 (08:30→20:29)
[2021-07-04] MEDS: METOPROLOL TARTRATE 100 MG TABLET PER TUBE SCH ×2 (08:30→20:28)
[2021-07-04] MEDS: PANTOPRAZOLE 40 MG VIAL IV SCH (08:30)
[2021-07-04] MEDS: chlorproMAZINE 25 MG TABLET PO SCH ×2 (08:30→20:29)
[2021-07-04] MEDS: lisinopriL 20 MG TABLET PER TUBE SCH (08:30)
[2021-07-04] MEDS: LEVOFLOXACIN INJ 750 MG/150 ML PREMIX IV SCH (14:50)
[2021-07-04] MEDS: ENOXAPARIN 40 MG/0.4 ML SYRINGE SUBCUT SCH (18:00)
[2021-07-04] MEDS: ATORVASTATIN 80 MG TABLET PO SCH (20:28)
[2021-07-05] MEDS: INSULIN REGULAR 100 UNIT/ML SUBCUT SCH ×4 (00:31→18:19)
[2021-07-05 04:47] LABS: Basophils % 0.3 % (0.0-0.8); Eosinophils # 0.4 10*3/uL (0.0-0.87); Eosinophils % 3.5 % (0.00-10.9); Hematocrit 30.8 VOL% (42.0-52.0); Hemoglobin 9.3 GM/DL (14.0-18.0); Immature Granulocytes % 4.7 %; Immature Granulocytes Absolute 0.54 #; Lymphocytes % 8.8 % (21.2-54.2); Mean Corpuscular HGB Conc 30.2 GM/DL (32-36); Mean Corpuscular Volume 81.7 FL (87-102); Monocytes % 8.4 % (1.7-12.7); Neutrophils % 74.3 % (38.7-73.9); Platelet Count 282 T/CUMM (130-400); Red Blood Count 3.77 MC/CUMM (3.8-5.5); Red Cell Distribution Width 17.1 % (9.3-17.3); White Blood Count 11.5 T/CUMM (4-12)
[2021-07-05 05:04] LABS: ABG Base Excess 5.6 MMOL/L (-2.5-2.5); ABG HCO3 29.5 MMOL/L (20-26); ABG Oxygen Saturation 97.7 % (95-100); ABG PCO2 44.2 MM HG (35-48); ABG PH 7.444 (7.35-7.45); ABG PO2 98.1 MM HG (80-95); ABG TCO2 27.7 MMOL/L (23-27)
[2021-07-05 05:17] LABS: Band Neutrophils 1 % (0-10); Eosinophils 4 % (0-10); Lymphocytes 10 % (20-55); Total Cells Counted 100
[2021-07-05 05:18] LABS: Hypochromia 1+; Microcytosis 1+; Platelet Estimate Normal
[2021-07-05 05:25] LABS: Calcium 8.8 MG/DL (8.5-10.1); Osmolality,Calculated 285.1 MOS/KG (273-304); Potassium 4.3 MMOL/L (3.5-5.1)
[2021-07-05 08:55] LABS: Alanine Aminotransferase 345 U/L (16-61); Albumin 1.7 G/DL (3.4-5.0); Alkaline Phosphatase 215 U/L (45-117); Aspartate Amino Transferase 173 U/L (0-37); Bilirubin,Direct < 0.100 MG/DL (0.0-0.20); Bilirubin,Indirect 0.3 MG/DL (0.0-1.0); Bilirubin,Total < 0.39 MG/DL (0.20-1.00); Total Protein 6.7 G/DL (6.4-8.2)
[2021-07-05] MEDS: amLODIPine 10 MG TABLET PER TUBE SCH (09:45)
[2021-07-05] MEDS: DOCUSATE SODIUM 100 MG/10 ML UDCUP PO SCH ×2 (09:45→21:37)
[2021-07-05] MEDS: chlorproMAZINE 25 MG TABLET PO SCH ×2 (09:45→21:38)
[2021-07-05] MEDS: METOPROLOL TARTRATE 100 MG TABLET PER TUBE SCH ×2 (09:45→21:38)
[2021-07-05] MEDS: SODIUM CHLORIDE 1 GM TABLET PER TUBE SCH ×2 (09:45→21:38)
[2021-07-05] MEDS: FUROSEMIDE 40 MG TABLET PER TUBE SCH (09:46)
[2021-07-05] MEDS: PANTOPRAZOLE 40 MG VIAL IV SCH (09:46)
[2021-07-05] MEDS: ASPIRIN CHEW 81 MG TABLET PO SCH (09:46)
[2021-07-05] MEDS: lisinopriL 20 MG TABLET PER TUBE SCH (09:46)
[2021-07-05] MEDS: LEVOFLOXACIN INJ 750 MG/150 ML PREMIX IV SCH (13:40)
[2021-07-05] MEDS: hydrALAZINE 20 MG/1 ML VIAL IV PRN (14:20)
[2021-07-05] MEDS ORDERED: MORPHINE 4 MG/1 ML VIAL IV ONE (16:00)
[2021-07-05] MEDS: HALOPERIDOL 5 MG/ML AMP IV PRN (18:38)
[2021-07-05] MEDS: ATORVASTATIN 80 MG TABLET PO SCH (21:38)
[2021-07-06] MEDS: INSULIN REGULAR 100 UNIT/ML SUBCUT SCH ×4 (02:14→17:37)
[2021-07-06 03:46] LABS: Basophils # 0.1 10*3/uL (0.0-0.2); Basophils % 0.5 % (0.0-0.8); Eosinophils # 0.3 10*3/uL (0.0-0.87); Eosinophils % 2.4 % (0.00-10.9); Hematocrit 32.6 VOL% (42.0-52.0); Hemoglobin 9.8 GM/DL (14.0-18.0); Immature Granulocytes Absolute 0.39 #; Lymphocytes % 7.9 % (21.2-54.2); Mean Corpuscular HGB Conc 30.1 GM/DL (32-36); Mean Corpuscular Volume 80.9 FL (87-102); Mean Platelet Volume 11.4 FL (9.6-12.0); Monocytes # 0.9 10*3/uL (0.11-0.8); Monocytes % 6.8 % (1.7-12.7); Neutrophils % 79.4 % (38.7-73.9); Platelet Count 299 T/CUMM (130-400); Red Blood Count 4.03 MC/CUMM (3.8-5.5); Red Cell Distribution Width 16.9 % (9.3-17.3); White Blood Count 13.2 T/CUMM (4-12)
[2021-07-06 04:02] LABS: ABG Base Excess 5.9 MMOL/L (-2.5-2.5); ABG HCO3 29.8 MMOL/L (20-26); ABG Oxygen Saturation 98.2 % (95-100); ABG PCO2 46.8 MM HG (35-48); ABG PH 7.431 (7.35-7.45); ABG TCO2 27.9 MMOL/L (23-27); Allen Test Positive; Pt O2 Delivery Device Ventilator
[2021-07-06 04:03] LABS: Calcium 8.9 MG/DL (8.5-10.1); Osmolality,Calculated 283.1 MOS/KG (273-304); Potassium 4.4 MMOL/L (3.5-5.1)
[2021-07-06 04:08] LABS: Eosinophils 2 % (0-10); Hypochromia 1+; Lymphocytes 7 % (20-55); Myelocytes 2 %; Total Cells Counted 100
[2021-07-06 04:09] LABS: Microcytosis 1+; Platelet Estimate Normal
[2021-07-06] MEDS: amLODIPine 10 MG TABLET PER TUBE SCH (08:39)
[2021-07-06] MEDS: lisinopriL 20 MG TABLET PER TUBE SCH (08:40)
[2021-07-06] MEDS: FUROSEMIDE 40 MG TABLET PER TUBE SCH (08:40)
[2021-07-06] MEDS: METOPROLOL TARTRATE 100 MG TABLET PER TUBE SCH ×2 (08:40→20:21)
[2021-07-06] MEDS: ASPIRIN CHEW 81 MG TABLET PO SCH (08:40)
[2021-07-06] MEDS: DOCUSATE SODIUM 100 MG/10 ML UDCUP PO SCH ×2 (08:40→20:21)
[2021-07-06] MEDS: chlorproMAZINE 25 MG TABLET PO SCH ×2 (08:40→20:21)
[2021-07-06] MEDS: SODIUM CHLORIDE 1 GM TABLET PER TUBE SCH ×2 (08:40→20:21)
[2021-07-06] MEDS: PANTOPRAZOLE 40 MG VIAL IV SCH (08:41)
[2021-07-06] MEDS: HALOPERIDOL 5 MG/ML AMP IV PRN (08:41)
[2021-07-06] MEDS: LEVOFLOXACIN INJ 750 MG/150 ML PREMIX IV SCH (14:26)
[2021-07-06] MEDS: ENOXAPARIN 40 MG/0.4 ML SYRINGE SUBCUT SCH (18:47)
[2021-07-06] MEDS: ATORVASTATIN 80 MG TABLET PO SCH (20:21)
[2021-07-06] MEDS: hydrALAZINE 20 MG/1 ML VIAL IV PRN (20:41)
[2021-07-07] MEDS: INSULIN REGULAR 100 UNIT/ML SUBCUT SCH ×5 (00:28→23:08)
[2021-07-07 04:34] LABS: Arterial Bicarbonate iSTAT 34.1 MMOL/L (20-26); Arterial pH iSTAT 7.49 (7.35-7.45)
[2021-07-07 05:02] LABS: Basophils # 0.1 10*3/uL (0.0-0.2); Basophils % 0.5 % (0.0-0.8); Eosinophils # 0.3 10*3/uL (0.0-0.87); Eosinophils % 2.1 % (0.00-10.9); Hematocrit 32.8 VOL% (42.0-52.0); Hemoglobin 9.6 GM/DL (14.0-18.0); Immature Granulocytes % 2.4 %; Immature Granulocytes Absolute 0.32 #; Lymphocytes # 1.1 10*3/uL (1.4-4.0); Lymphocytes % 7.9 % (21.2-54.2); Mean Corpuscular HGB Conc 29.3 GM/DL (32-36); Mean Corpuscular Volume 82.4 FL (87-102); Mean Platelet Volume 11.8 FL (9.6-12.0); Monocytes # 0.9 10*3/uL (0.11-0.8); Monocytes % 6.7 % (1.7-12.7); Neutrophils % 80.4 % (38.7-73.9); Platelet Count 309 T/CUMM (130-400); Red Blood Count 3.98 MC/CUMM (3.8-5.5); Red Cell Distribution Width 17.2 % (9.3-17.3); White Blood Count 13.2 T/CUMM (4-12)
[2021-07-07 05:20] LABS: Calcium 8.7 MG/DL (8.5-10.1); Osmolality,Calculated 289.7 MOS/KG (273-304); Potassium 4.6 MMOL/L (3.5-5.1)
[2021-07-07 05:47] LABS: Band Neutrophils 2 % (0-10); Eosinophils 2 % (0-10); Hypochromia 1+; Lymphocytes 6 % (20-55); Microcytosis 1+; Platelet Estimate Adequate; Total Cells Counted 100
[2021-07-07] MEDS: FUROSEMIDE 40 MG TABLET PER TUBE SCH (08:35)
[2021-07-07] MEDS: PANTOPRAZOLE 40 MG VIAL IV SCH (08:35)
[2021-07-07] MEDS: SODIUM CHLORIDE 1 GM TABLET PER TUBE SCH ×2 (08:35→20:33)
[2021-07-07] MEDS: METOPROLOL TARTRATE 100 MG TABLET PER TUBE SCH ×2 (08:35→20:32)
[2021-07-07] MEDS: DOCUSATE SODIUM 100 MG/10 ML UDCUP PO SCH ×2 (08:35→20:32)
[2021-07-07] MEDS: chlorproMAZINE 25 MG TABLET PO SCH ×2 (08:35→20:32)
[2021-07-07] MEDS: ASPIRIN CHEW 81 MG TABLET PO SCH (08:35)
[2021-07-07] MEDS: amLODIPine 10 MG TABLET PER TUBE SCH (08:35)
[2021-07-07] MEDS: lisinopriL 20 MG TABLET PER TUBE SCH (08:35)
[2021-07-07] MEDS: HALOPERIDOL 5 MG/ML AMP IV PRN (08:50)
[2021-07-07] MEDS: LEVOFLOXACIN INJ 750 MG/150 ML PREMIX IV SCH (11:55)
[2021-07-07] MEDS: ENOXAPARIN 40 MG/0.4 ML SYRINGE SUBCUT SCH (17:20)
[2021-07-07] MEDS: ATORVASTATIN 80 MG TABLET PO SCH (20:32)
[2021-07-08 04:10] LABS: Alanine Aminotransferase 426 U/L (16-61); Albumin 1.8 G/DL (3.4-5.0); Alkaline Phosphatase 274 U/L (45-117); Aspartate Amino Transferase 312 U/L (0-37); Bilirubin,Total < 0.39 MG/DL (0.20-1.00); Blood Urea Nitrogen 52 MG/DL (7-18); Calcium 8.8 MG/DL (8.5-10.1); Carbon Dioxide 31 MMOL/L (21-32); Chloride 104 MMOL/L (98-107); Estimated Glom Filtration Rate 69 ML/MIN; Glucose 158 MG/DL (74-106); Osmolality,Calculated 291.7 MOS/KG (273-304); Sodium 138 MMOL/L (136-145); Total Protein 6.6 G/DL (6.4-8.2)
[2021-07-08] MEDS: INSULIN REGULAR 100 UNIT/ML SUBCUT SCH ×3 (06:16→17:50)
[2021-07-08] MEDS: ASPIRIN CHEW 81 MG TABLET PO SCH (08:20)
[2021-07-08] MEDS: lisinopriL 20 MG TABLET PER TUBE SCH (08:25)
[2021-07-08] MEDS: chlorproMAZINE 25 MG TABLET PO SCH ×2 (08:25→21:30)
[2021-07-08] MEDS: PANTOPRAZOLE 40 MG VIAL IV SCH (08:25)
[2021-07-08] MEDS: DOCUSATE SODIUM 100 MG/10 ML UDCUP PO SCH ×2 (08:25→21:30)
[2021-07-08] MEDS: amLODIPine 10 MG TABLET PER TUBE SCH (08:25)
[2021-07-08] MEDS: SODIUM CHLORIDE 1 GM TABLET PER TUBE SCH ×2 (08:25→21:30)
[2021-07-08] MEDS: METOPROLOL TARTRATE 100 MG TABLET PER TUBE SCH ×2 (08:25→21:30)
[2021-07-08] MEDS: LEVOFLOXACIN INJ 750 MG/150 ML PREMIX IV SCH (14:10)
[2021-07-08] MEDS: ENOXAPARIN 40 MG/0.4 ML SYRINGE SUBCUT SCH (18:00)
[2021-07-08] MEDS: ATORVASTATIN 80 MG TABLET PO SCH (21:30)
[2021-07-09] MEDS: INSULIN REGULAR 100 UNIT/ML SUBCUT SCH ×4 (01:14→16:59)
[2021-07-09 03:28] LABS: ABG Base Excess 6.8 MMOL/L (-2.5-2.5); ABG HCO3 30.7 MMOL/L (20-26); ABG Oxygen Saturation 98.7 % (95-100); ABG PCO2 47.6 MM HG (35-48); ABG PH 7.434 (7.35-7.45); ABG TCO2 29.8 MMOL/L (23-27); Allen Test Positive; Pt O2 Delivery Device Ventilator
[2021-07-09 06:21] LABS: Basophils # 0.1 10*3/uL (0.0-0.2); Basophils % 0.6 % (0.0-0.8); Eosinophils # 0.2 10*3/uL (0.0-0.87); Eosinophils % 1.7 % (0.00-10.9); Hematocrit 32.6 VOL% (42.0-52.0); Hemoglobin 9.7 GM/DL (14.0-18.0); Immature Granulocytes % 1.6 %; Immature Granulocytes Absolute 0.22 #; Lymphocytes # 0.9 10*3/uL (1.4-4.0); Lymphocytes % 6.8 % (21.2-54.2); Mean Corpuscular HGB Conc 29.8 GM/DL (32-36); Mean Corpuscular Volume 82.1 FL (87-102); Mean Platelet Volume 10.9 FL (9.6-12.0); Monocytes % 6.9 % (1.7-12.7); Neutrophils % 82.4 % (38.7-73.9); Platelet Count 348 T/CUMM (130-400); Red Blood Count 3.97 MC/CUMM (3.8-5.5); Red Cell Distribution Width 17.3 % (9.3-17.3); White Blood Count 13.9 T/CUMM (4-12)
[2021-07-09 06:26] LABS: Albumin 1.7 G/DL (3.4-5.0); Bilirubin,Total 0.5 MG/DL (0.20-1.00); Calcium 8.8 MG/DL (8.5-10.1); Osmolality,Calculated 301.1 MOS/KG (273-304); Potassium 4.6 MMOL/L (3.5-5.1); Total Protein 7.4 G/DL (6.4-8.2)
[2021-07-09 06:49] LABS: Eosinophils 3 % (0-10); Lymphocytes 5 % (20-55); Platelet Estimate Increased; Total Cells Counted 100
[2021-07-09 06:50] LABS: Hypochromia 1+
[2021-07-09] MEDS: METOPROLOL TARTRATE 100 MG TABLET PER TUBE SCH ×2 (09:34→20:50)
[2021-07-09] MEDS: lisinopriL 20 MG TABLET PER TUBE SCH (09:34)
[2021-07-09] MEDS: amLODIPine 10 MG TABLET PER TUBE SCH (09:34)
[2021-07-09] MEDS: ASPIRIN CHEW 81 MG TABLET PO SCH (09:34)
[2021-07-09] MEDS: DOCUSATE SODIUM 100 MG/10 ML UDCUP PO SCH ×2 (09:34→20:48)
[2021-07-09] MEDS: chlorproMAZINE 25 MG TABLET PO SCH ×2 (09:35→20:50)
[2021-07-09] MEDS: SODIUM CHLORIDE 1 GM TABLET PER TUBE SCH (09:35)
[2021-07-09] MEDS: PANTOPRAZOLE 40 MG VIAL IV SCH (09:35)
[2021-07-09] MEDS: ENOXAPARIN 40 MG/0.4 ML SYRINGE SUBCUT SCH (16:59)
[2021-07-09] MEDS: ATORVASTATIN 80 MG TABLET PO SCH (20:50)
[2021-07-10] MEDS: INSULIN REGULAR 100 UNIT/ML SUBCUT SCH ×4 (00:20→17:13)
[2021-07-10 04:37] LABS: ABG Base Excess 7.2 MMOL/L (-2.5-2.5); ABG Oxygen Saturation 98.5 % (95-100); ABG PCO2 45.5 MM HG (35-48); ABG PH 7.456 (7.35-7.45); ABG TCO2 28.8 MMOL/L (23-27)
[2021-07-10 06:58] LABS: Calcium 9.3 MG/DL (8.5-10.1); Osmolality,Calculated 295.4 MOS/KG (273-304); Potassium 4.5 MMOL/L (3.5-5.1)
[2021-07-10 08:10] LABS: Basophils # 0.1 10*3/uL (0.0-0.2); Basophils % 0.7 % (0.0-0.8); Eosinophils # 0.4 10*3/uL (0.0-0.87); Hematocrit 33.7 VOL% (42.0-52.0); Immature Granulocytes % 0.8 %; Lymphocytes % 7.6 % (21.2-54.2); Mean Corpuscular HGB Conc 29.7 GM/DL (32-36); Mean Corpuscular Volume 81.6 FL (87-102); Mean Platelet Volume 11.6 FL (9.6-12.0); Monocytes # 1.4 10*3/uL (0.11-0.8); Monocytes % 10.6 % (1.7-12.7); Neutrophils % 77.3 % (38.7-73.9); Platelet Count 367 T/CUMM (130-400); Red Blood Count 4.13 MC/CUMM (3.8-5.5); Red Cell Distribution Width 17.3 % (9.3-17.3); White Blood Count 12.9 T/CUMM (4-12)
[2021-07-10 08:27] LABS: Anisocytosis 1+; Band Neutrophils 1 % (0-10); Eosinophils 3 % (0-10); Lymphocytes 8 % (20-55); Platelet Estimate Normal; Total Cells Counted 100
[2021-07-10] MEDS: amLODIPine 10 MG TABLET PER TUBE SCH (08:41)
[2021-07-10] MEDS: METOPROLOL TARTRATE 100 MG TABLET PER TUBE SCH ×2 (08:41→21:12)
[2021-07-10] MEDS: DOCUSATE SODIUM 100 MG/10 ML UDCUP PO SCH ×2 (08:41→21:30)
[2021-07-10] MEDS: chlorproMAZINE 25 MG TABLET PO SCH ×2 (08:41→21:12)
[2021-07-10] MEDS: lisinopriL 20 MG TABLET PER TUBE SCH (08:41)
[2021-07-10] MEDS: ASPIRIN CHEW 81 MG TABLET PO SCH (08:41)
[2021-07-10] MEDS: PANTOPRAZOLE 40 MG VIAL IV SCH (08:42)
[2021-07-10] MEDS ORDERED: LORazepam 2 MG/1 ML VIAL IV ONE (10:31)
[2021-07-10] MEDS ORDERED: LORazepam 2 MG/1 ML VIAL ONE (10:32)
[2021-07-10 12:31] LABS: Hematocrit 32.2 VOL% (42.0-52.0); Hemoglobin 9.5 GM/DL (14.0-18.0)
[2021-07-10 12:43] LABS: PT Patient Result 11.6 SECS (10.5-12.0)
[2021-07-10 17:31] LABS: Hematocrit 31.5 VOL% (42.0-52.0)
[2021-07-10 17:34] LABS: Hemoglobin 9.1 GM/DL (14.0-18.0)
[2021-07-10] MEDS: ATORVASTATIN 80 MG TABLET PO SCH (21:12)
[2021-07-10] MEDS: HALOPERIDOL 5 MG/ML AMP IV PRN (21:45)
[2021-07-11 00:47] LABS: PT Patient Result 11.5 SECS (10.5-12.0)
[2021-07-11 01:00] LABS: Calcium 8.4 MG/DL (8.5-10.1); Osmolality,Calculated 306.8 MOS/KG (273-304); Potassium 4.5 MMOL/L (3.5-5.1)
[2021-07-11 01:02] LABS: Alanine Aminotransferase 407 U/L (16-61); Albumin 1.6 G/DL (3.4-5.0); Alkaline Phosphatase 239 U/L (45-117); Aspartate Amino Transferase 318 U/L (0-37); Bilirubin,Indirect 0.3 MG/DL (0.0-1.0); Bilirubin,Total < 0.39 MG/DL (0.20-1.00); Total Protein 7.3 G/DL (6.4-8.2)
[2021-07-11 01:28] LABS: Hematocrit 31.2 VOL% (42.0-52.0); Hemoglobin 9.3 GM/DL (14.0-18.0)
[2021-07-11] MEDS: INSULIN REGULAR 100 UNIT/ML SUBCUT SCH ×5 (03:12→23:45)
[2021-07-11] MEDS: LORazepam 2 MG/1 ML VIAL IV PRN (03:27)
[2021-07-11 03:47] LABS: ABG Base Excess 7.3 MMOL/L (-2.5-2.5); ABG HCO3 31.1 MMOL/L (20-26); ABG Oxygen Saturation 99.1 % (95-100); ABG PCO2 34.5 MM HG (35-48); ABG PH 7.545 (7.35-7.45); ABG TCO2 25.8 MMOL/L (23-27)
[2021-07-11] MEDS: HALOPERIDOL 5 MG/ML AMP IV PRN (04:02)
[2021-07-11] MEDS: amLODIPine 10 MG TABLET PER TUBE SCH (08:43)
[2021-07-11] MEDS: lisinopriL 20 MG TABLET PER TUBE SCH (08:43)
[2021-07-11] MEDS: DOCUSATE SODIUM 100 MG/10 ML UDCUP PO SCH ×2 (08:43→21:00)
[2021-07-11] MEDS: METOPROLOL TARTRATE 100 MG TABLET PER TUBE SCH ×2 (08:43→21:00)
[2021-07-11] MEDS: PANTOPRAZOLE 40 MG VIAL IV SCH (08:43)
[2021-07-11] MEDS: chlorproMAZINE 25 MG TABLET PO SCH ×2 (08:43→21:01)
[2021-07-11] MEDS: ATORVASTATIN 80 MG TABLET PO SCH (21:00)
[2021-07-12 04:22] LABS: Arterial Base Excess iSTAT 10 MMOL/L (-2.5-2.5); Arterial Bicarbonate iSTAT 32.9 MMOL/L (20-26); Arterial O2 Saturation iSTAT 99 % (95-100); Arterial PCO2 iSTAT 38 MM HG (35-48); Arterial PO2 iSTAT 144 MM HG (80-95); Arterial Total CO2 iSTAT 34 MMO/L (23-27); Arterial pH iSTAT 7.547 (7.35-7.45)
[2021-07-12 05:10] LABS: Alanine Aminotransferase 433 U/L (16-61); Albumin 1.7 G/DL (3.4-5.0); Alkaline Phosphatase 286 U/L (45-117); Aspartate Amino Transferase 317 U/L (0-37); Bilirubin,Indirect 0.3 MG/DL (0.0-1.0); Bilirubin,Total < 0.39 MG/DL (0.20-1.00); Blood Urea Nitrogen 63 MG/DL (7-18); Calcium 9.3 MG/DL (8.5-10.1); Carbon Dioxide 31 MMOL/L (21-32); Chloride 110 MMOL/L (98-107); Estimated Glom Filtration Rate 85 ML/MIN; Glucose 162 MG/DL (74-106); Potassium 4.4 MMOL/L (3.5-5.1); Sodium 143 MMOL/L (136-145); Total Protein 7.6 G/DL (6.4-8.2)
[2021-07-12 05:39] LABS: Basophils # 0.1 10*3/uL (0.0-0.2); Basophils % 0.7 % (0.0-0.8); Eosinophils # 0.4 10*3/uL (0.0-0.87); Eosinophils % 2.9 % (0.00-10.9); Hematocrit 32.2 VOL% (42.0-52.0); Immature Granulocytes % 1.1 %; Immature Granulocytes Absolute 0.13 #; Lymphocytes % 8.3 % (21.2-54.2); Mean Corpuscular HGB Conc 30.4 GM/DL (32-36); Mean Corpuscular Volume 80.5 FL (87-102); Mean Platelet Volume 11.8 FL (9.6-12.0); Monocytes # 1.5 10*3/uL (0.11-0.8); Monocytes % 12.2 % (1.7-12.7); Neutrophils % 74.8 % (38.7-73.9); Platelet Count 370 T/CUMM (130-400); Red Cell Distribution Width 17.3 % (9.3-17.3); White Blood Count 12.3 T/CUMM (4-12)
[2021-07-12 05:40] LABS: Hemoglobin 9.8 GM/DL (14.0-18.0)
[2021-07-12 05:42] LABS: Eosinophils 4 % (0-10); Hypochromia 1+; Lymphocytes 6 % (20-55); Microcytosis 1+; Total Cells Counted 100
[2021-07-12 05:43] LABS: Platelet Estimate Normal; Polychromasia Slight
[2021-07-12] MEDS: INSULIN REGULAR 100 UNIT/ML SUBCUT SCH ×3 (06:04→18:23)
[2021-07-12] MEDS: chlorproMAZINE 25 MG TABLET PO SCH ×2 (09:39→20:17)
[2021-07-12] MEDS: DOCUSATE SODIUM 100 MG/10 ML UDCUP PO SCH ×2 (09:41→20:10)
[2021-07-12] MEDS: amLODIPine 10 MG TABLET PER TUBE SCH (09:41)
[2021-07-12] MEDS: ASPIRIN CHEW 81 MG TABLET PO SCH (09:41)
[2021-07-12] MEDS: lisinopriL 20 MG TABLET PER TUBE SCH (09:41)
[2021-07-12] MEDS: METOPROLOL TARTRATE 100 MG TABLET PER TUBE SCH ×2 (09:41→20:17)
[2021-07-12] MEDS: FAMOTIDINE 8 MG/ML 50 ML/BOTTLE PO SCH ×2 (09:45→20:17)
[2021-07-12] MEDS: hydrALAZINE 20 MG/1 ML VIAL IV PRN (20:17)
[2021-07-12] MEDS: LORazepam 2 MG/1 ML VIAL IV PRN (20:50)
[2021-07-13] MEDS: INSULIN REGULAR 100 UNIT/ML SUBCUT SCH ×4 (00:35→17:45)
[2021-07-13 05:03] LABS: Arterial Base Excess iSTAT 9 MMOL/L (-2.5-2.5); Arterial Bicarbonate iSTAT 32.8 MMOL/L (20-26); Arterial O2 Saturation iSTAT 99 % (95-100); Arterial PCO2 iSTAT 38 MM HG (35-48); Arterial PO2 iSTAT 144 MM HG (80-95); Arterial Total CO2 iSTAT 34 MMO/L (23-27); Arterial pH iSTAT 7.539 (7.35-7.45)
[2021-07-13 06:30] LABS: Basophils # 0.1 10*3/uL (0.0-0.2); Basophils % 0.7 % (0.0-0.8); Eosinophils # 0.3 10*3/uL (0.0-0.87); Eosinophils % 2.2 % (0.00-10.9); Hematocrit 31.7 VOL% (42.0-52.0); Hemoglobin 9.5 GM/DL (14.0-18.0); Immature Granulocytes % 0.9 %; Immature Granulocytes Absolute 0.12 #; Lymphocytes # 1.5 10*3/uL (1.4-4.0); Lymphocytes % 10.7 % (21.2-54.2); Mean Corpuscular Volume 81.5 FL (87-102); Monocytes # 1.4 10*3/uL (0.11-0.8); Monocytes % 10.4 % (1.7-12.7); Neutrophils % 75.1 % (38.7-73.9); Platelet Count 387 T/CUMM (130-400); Red Blood Count 3.89 MC/CUMM (3.8-5.5); Red Cell Distribution Width 17.5 % (9.3-17.3); White Blood Count 13.9 T/CUMM (4-12)
[2021-07-13 06:40] LABS: Calcium 8.9 MG/DL (8.5-10.1); Osmolality,Calculated 314.3 MOS/KG (273-304); Potassium 4.4 MMOL/L (3.5-5.1)
[2021-07-13 06:42] LABS: Alanine Aminotransferase 535 U/L (16-61); Albumin 1.7 G/DL (3.4-5.0); Alkaline Phosphatase 300 U/L (45-117); Aspartate Amino Transferase 407 U/L (0-37); Bilirubin,Indirect 0.3 MG/DL (0.0-1.0); Bilirubin,Total < 0.39 MG/DL (0.20-1.00); Total Protein 7.7 G/DL (6.4-8.2)
[2021-07-13 06:52] LABS: Eosinophils 5 % (0-10); Hypochromia 1+; Lymphocytes 6 % (20-55); Microcytosis 1+; Platelet Estimate Adequate; Total Cells Counted 100
[2021-07-13] MEDS: DOCUSATE SODIUM 100 MG/10 ML UDCUP PO SCH ×2 (09:00→21:47)
[2021-07-13] MEDS: ASPIRIN CHEW 81 MG TABLET PO SCH (09:40)
[2021-07-13] MEDS: METOPROLOL TARTRATE 100 MG TABLET PER TUBE SCH ×2 (09:40→21:47)
[2021-07-13] MEDS: chlorproMAZINE 25 MG TABLET PO SCH ×2 (09:40→21:47)
[2021-07-13] MEDS: amLODIPine 10 MG TABLET PER TUBE SCH (09:40)
[2021-07-13] MEDS: FAMOTIDINE 8 MG/ML 50 ML/BOTTLE PO SCH ×2 (09:40→21:47)
[2021-07-13] MEDS: lisinopriL 20 MG TABLET PER TUBE SCH (09:40)
[2021-07-14] MEDS: INSULIN REGULAR 100 UNIT/ML SUBCUT SCH ×5 (00:48→23:48)
[2021-07-14 04:44] LABS: Basophils # 0.1 10*3/uL (0.0-0.2); Basophils % 0.7 % (0.0-0.8); Eosinophils # 0.4 10*3/uL (0.0-0.87); Eosinophils % 3.6 % (0.00-10.9); Hematocrit 30.2 VOL% (42.0-52.0); Hemoglobin 8.9 GM/DL (14.0-18.0); Immature Granulocytes % 0.8 %; Lymphocytes # 1.4 10*3/uL (1.4-4.0); Lymphocytes % 11.4 % (21.2-54.2); Mean Corpuscular HGB Conc 29.5 GM/DL (32-36); Mean Corpuscular Volume 83.9 FL (87-102); Mean Platelet Volume 11.6 FL (9.6-12.0); Monocytes # 1.1 10*3/uL (0.11-0.8); Monocytes % 9.1 % (1.7-12.7); Neutrophils % 74.4 % (38.7-73.9); Platelet Count 349 T/CUMM (130-400); Red Cell Distribution Width 17.5 % (9.3-17.3); White Blood Count 11.9 T/CUMM (4-12)
[2021-07-14 05:01] LABS: Arterial Base Excess iSTAT 10 MMOL/L (-2.5-2.5); Arterial Bicarbonate iSTAT 33.4 MMOL/L (20-26); Arterial O2 Saturation iSTAT 99 % (95-100); Arterial PCO2 iSTAT 42 MM HG (35-48); Arterial PO2 iSTAT 142 MM HG (80-95); Arterial Total CO2 iSTAT 35 MMO/L (23-27); Arterial pH iSTAT 7.512 (7.35-7.45)
[2021-07-14 05:15] LABS: Calcium 8.6 MG/DL (8.5-10.1); Osmolality,Calculated 312.4 MOS/KG (273-304); Potassium 4.4 MMOL/L (3.5-5.1)
[2021-07-14 05:19] LABS: Alanine Aminotransferase 500 U/L (16-61); Albumin 1.5 G/DL (3.4-5.0); Alkaline Phosphatase 258 U/L (45-117); Aspartate Amino Transferase 387 U/L (0-37); Bilirubin,Direct < 0.100 MG/DL (0.0-0.20); Bilirubin,Indirect 1.2 MG/DL (0.0-1.0); Total Protein 7.5 G/DL (6.4-8.2)
[2021-07-14] MEDS: DOCUSATE SODIUM 100 MG/10 ML UDCUP PO SCH ×2 (08:03→21:05)
[2021-07-14] MEDS: amLODIPine 10 MG TABLET PER TUBE SCH (08:04)
[2021-07-14] MEDS: ASPIRIN CHEW 81 MG TABLET PO SCH (08:04)
[2021-07-14] MEDS: METOPROLOL TARTRATE 100 MG TABLET PER TUBE SCH ×2 (08:04→21:06)
[2021-07-14] MEDS: chlorproMAZINE 25 MG TABLET PO SCH ×2 (08:04→21:05)
[2021-07-14] MEDS: lisinopriL 20 MG TABLET PER TUBE SCH (08:04)
[2021-07-14] MEDS: FAMOTIDINE 8 MG/ML 50 ML/BOTTLE PO SCH ×2 (08:05→21:31)
[2021-07-15 03:45] LABS: Arterial Base Excess iSTAT 7 MMOL/L (-2.5-2.5); Arterial Bicarbonate iSTAT 31.8 MMOL/L (20-26); Arterial O2 Saturation iSTAT 98 % (95-100); Arterial PCO2 iSTAT 46 MM HG (35-48); Arterial PO2 iSTAT 106 MM HG (80-95); Arterial Total CO2 iSTAT 33 MMO/L (23-27); Arterial pH iSTAT 7.452 (7.35-7.45)
[2021-07-15 05:07] LABS: Basophils # 0.1 10*3/uL (0.0-0.2); Basophils % 0.6 % (0.0-0.8); Hemoglobin 8.7 GM/DL (14.0-18.0); Red Cell Distribution Width 17.4 % (9.3-17.3)
[2021-07-15 05:23] LABS: Calcium 8.6 MG/DL (8.5-10.1); Osmolality,Calculated 309.6 MOS/KG (273-304); Potassium 4.3 MMOL/L (3.5-5.1)
[2021-07-15 05:27] LABS: Alanine Aminotransferase 461 U/L (16-61); Albumin 1.5 G/DL (3.4-5.0); Alkaline Phosphatase 235 U/L (45-117); Aspartate Amino Transferase 313 U/L (0-37); Bilirubin,Indirect 0.3 MG/DL (0.0-1.0); Bilirubin,Total < 0.39 MG/DL (0.20-1.00); Total Protein 7.1 G/DL (6.4-8.2)
[2021-07-15 05:36] LABS: Eosinophils # 0.6 10*3/uL (0.0-0.87); Eosinophils % 4.6 % (0.00-10.9); Hematocrit 30.1 VOL% (42.0-52.0); Immature Granulocytes % 0.6 %; Immature Granulocytes Absolute 0.08 #; Lymphocytes # 0.8 10*3/uL (1.4-4.0); Lymphocytes % 6.4 % (21.2-54.2); Mean Corpuscular HGB Conc 28.9 GM/DL (32-36); Mean Corpuscular Volume 83.8 FL (87-102); Mean Platelet Volume 12.3 FL (9.6-12.0); Monocytes # 1.2 10*3/uL (0.11-0.8); Monocytes % 9.3 % (1.7-12.7); NRBC # 0.02 10*3/uL; Neutrophils % 78.5 % (38.7-73.9); Platelet Count 331 T/CUMM (130-400); Red Blood Count 3.59 MC/CUMM (3.8-5.5); White Blood Count 12.5 T/CUMM (4-12)
[2021-07-15] MEDS: INSULIN REGULAR 100 UNIT/ML SUBCUT SCH ×3 (06:01→17:06)
[2021-07-15] MEDS: amLODIPine 10 MG TABLET PER TUBE SCH (08:12)
[2021-07-15] MEDS: METOPROLOL TARTRATE 100 MG TABLET PER TUBE SCH ×2 (08:12→20:53)
[2021-07-15] MEDS: lisinopriL 20 MG TABLET PER TUBE SCH (08:12)
[2021-07-15] MEDS: DOCUSATE SODIUM 100 MG/10 ML UDCUP PO SCH ×2 (08:13→20:53)
[2021-07-15] MEDS: chlorproMAZINE 25 MG TABLET PO SCH ×2 (08:13→20:53)
[2021-07-15] MEDS: ASPIRIN CHEW 81 MG TABLET PO SCH (08:13)
[2021-07-15] MEDS: FAMOTIDINE 8 MG/ML 50 ML/BOTTLE PO SCH ×2 (08:14→20:55)
[2021-07-15] MEDS: DEXMEDETOMIDINE 200 MCG in SODIUM CHLORIDE 0.9% 48 ML IV PRN ×3 (10:50→23:45)
[2021-07-16] MEDS: INSULIN REGULAR 100 UNIT/ML SUBCUT SCH ×4 (00:18→17:35)
[2021-07-16 03:35] LABS: Basophils % 0.4 % (0.0-0.8); Eosinophils # 0.7 10*3/uL (0.0-0.87); Eosinophils % 6.7 % (0.00-10.9); Hematocrit 28.5 VOL% (42.0-52.0); Hemoglobin 8.4 GM/DL (14.0-18.0); Lymphocytes # 1.3 10*3/uL (1.4-4.0); Lymphocytes % 13.2 % (21.2-54.2); Mean Corpuscular HGB Conc 29.5 GM/DL (32-36); Mean Corpuscular Volume 82.6 FL (87-102); Mean Platelet Volume 11.2 FL (9.6-12.0); Monocytes # 0.8 10*3/uL (0.11-0.8); Neutrophils % 70.7 % (38.7-73.9); Platelet Count 312 T/CUMM (130-400); Red Blood Count 3.45 MC/CUMM (3.8-5.5); Red Cell Distribution Width 17.1 % (9.3-17.3); White Blood Count 10.2 T/CUMM (4-12)
[2021-07-16 03:57] LABS: Eosinophils 6 % (0-10); Lymphocytes 8 % (20-55); Total Cells Counted 100
[2021-07-16 03:58] LABS: Alanine Aminotransferase 441 U/L (16-61); Albumin 1.4 G/DL (3.4-5.0); Alkaline Phosphatase 250 U/L (45-117); Aspartate Amino Transferase 291 U/L (0-37); Bilirubin,Total < 0.39 MG/DL (0.20-1.00); Blood Urea Nitrogen 55 MG/DL (7-18); Calcium 9.1 MG/DL (8.5-10.1); Carbon Dioxide 31 MMOL/L (21-32); Chloride 111 MMOL/L (98-107); Estimated Glom Filtration Rate 92 ML/MIN; Glucose 150 MG/DL (74-106); Osmolality,Calculated 303.8 MOS/KG (273-304); Potassium 4.3 MMOL/L (3.5-5.1); Sodium 144 MMOL/L (136-145); Total Protein 7.2 G/DL (6.4-8.2)
[2021-07-16 03:58] LABS: Hypochromia 1+; Microcytosis 1+; Platelet Estimate Adequate
[2021-07-16 04:10] LABS: Arterial Base Excess iSTAT 6 MMOL/L (-2.5-2.5); Arterial Bicarbonate iSTAT 31.2 MMOL/L (20-26); Arterial O2 Saturation iSTAT 98 % (95-100); Arterial PCO2 iSTAT 46 MM HG (35-48); Arterial PO2 iSTAT 108 MM HG (80-95); Arterial Total CO2 iSTAT 33 MMO/L (23-27); Arterial pH iSTAT 7.436 (7.35-7.45)
[2021-07-16] MEDS: DEXMEDETOMIDINE 200 MCG in SODIUM CHLORIDE 0.9% 48 ML IV PRN ×3 (06:44→21:02)
[2021-07-16] MEDS: lisinopriL 20 MG TABLET PER TUBE SCH (08:30)
[2021-07-16] MEDS: chlorproMAZINE 25 MG TABLET PO SCH ×2 (08:30→21:00)
[2021-07-16] MEDS: FAMOTIDINE 8 MG/ML 50 ML/BOTTLE PO SCH ×2 (08:30→21:01)
[2021-07-16] MEDS: ASPIRIN CHEW 81 MG TABLET PO SCH (08:30)
[2021-07-16] MEDS: METOPROLOL TARTRATE 100 MG TABLET PER TUBE SCH ×2 (08:30→21:01)
[2021-07-16] MEDS: DOCUSATE SODIUM 100 MG/10 ML UDCUP PO SCH ×2 (08:30→20:59)
[2021-07-16] MEDS: amLODIPine 10 MG TABLET PER TUBE SCH (08:30)
[2021-07-16] MEDS: ENOXAPARIN 40 MG/0.4 ML SYRINGE SUBCUT SCH (17:35)
[2021-07-16] MEDS: hydrALAZINE 20 MG/1 ML VIAL IV PRN (23:10)
[2021-07-17] MEDS: INSULIN REGULAR 100 UNIT/ML SUBCUT SCH ×4 (00:27→18:05)
[2021-07-17 03:27] LABS: Basophils % 0.3 % (0.0-0.8); Eosinophils # 0.1 10*3/uL (0.0-0.87); Eosinophils % 1.1 % (0.00-10.9); Hemoglobin 8.8 GM/DL (14.0-18.0); Immature Granulocytes % 1.6 %; Immature Granulocytes Absolute 0.19 #; Lymphocytes # 1.4 10*3/uL (1.4-4.0); Lymphocytes % 11.8 % (21.2-54.2); Mean Corpuscular HGB Conc 29.3 GM/DL (32-36); Mean Corpuscular Volume 81.7 FL (87-102); Mean Platelet Volume 11.2 FL (9.6-12.0); Monocytes # 0.8 10*3/uL (0.11-0.8); Monocytes % 6.9 % (1.7-12.7); NRBC # 0.04 10*3/uL; Neutrophils % 78.3 % (38.7-73.9); Platelet Count 345 T/CUMM (130-400); Red Blood Count 3.67 MC/CUMM (3.8-5.5); Red Cell Distribution Width 16.7 % (9.3-17.3)
[2021-07-17 03:51] LABS: Eosinophils 2 % (0-10); Hypochromia 1+; Lymphocytes 12 % (20-55); Microcytosis 1+; Nucleated Red Blood Cells 1 (0-5); Ovalocytes Slight; Total Cells Counted 100
[2021-07-17 03:52] LABS: Platelet Estimate Normal
[2021-07-17 03:54] LABS: Albumin 1.5 G/DL (3.4-5.0); Bilirubin,Total 0.7 MG/DL (0.20-1.00); Calcium 8.5 MG/DL (8.5-10.1); Potassium 4.4 MMOL/L (3.5-5.1); Total Protein 7.6 G/DL (6.4-8.2)
[2021-07-17 04:29] LABS: Arterial Base Excess iSTAT 5 MMOL/L (-2.5-2.5); Arterial Bicarbonate iSTAT 28.5 MMOL/L (20-26); Arterial O2 Saturation iSTAT 97 % (95-100); Arterial PCO2 iSTAT 38 MM HG (35-48); Arterial PO2 iSTAT 81 MM HG (80-95); Arterial Total CO2 iSTAT 30 MMO/L (23-27); Arterial pH iSTAT 7.482 (7.35-7.45)
[2021-07-17] MEDS: DEXMEDETOMIDINE 200 MCG in SODIUM CHLORIDE 0.9% 48 ML IV PRN ×3 (07:00→19:27)
[2021-07-17] MEDS: ASPIRIN CHEW 81 MG TABLET PO SCH (08:55)
[2021-07-17] MEDS: DOCUSATE SODIUM 100 MG/10 ML UDCUP PO SCH ×2 (08:55→20:21)
[2021-07-17] MEDS: METOPROLOL TARTRATE 100 MG TABLET PER TUBE SCH ×2 (08:55→20:22)
[2021-07-17] MEDS: amLODIPine 10 MG TABLET PER TUBE SCH (08:55)
[2021-07-17] MEDS: chlorproMAZINE 25 MG TABLET PO SCH ×2 (08:55→20:21)
[2021-07-17] MEDS: lisinopriL 20 MG TABLET PER TUBE SCH (08:55)
[2021-07-17] MEDS: FAMOTIDINE 8 MG/ML 50 ML/BOTTLE PO SCH ×2 (08:55→20:22)
[2021-07-17] MEDS: ENOXAPARIN 40 MG/0.4 ML SYRINGE SUBCUT SCH (18:05)
[2021-07-18] MEDS: INSULIN REGULAR 100 UNIT/ML SUBCUT SCH ×5 (00:38→23:13)
[2021-07-18] MEDS: DEXMEDETOMIDINE 200 MCG in SODIUM CHLORIDE 0.9% 48 ML IV PRN ×4 (02:10→23:15)
[2021-07-18 03:30] LABS: Basophils # 0.1 10*3/uL (0.0-0.2); Basophils % 0.5 % (0.0-0.8); Eosinophils # 0.4 10*3/uL (0.0-0.87); Hematocrit 27.7 VOL% (42.0-52.0); Hemoglobin 8.1 GM/DL (14.0-18.0); Immature Granulocytes % 1.7 %; Immature Granulocytes Absolute 0.17 #; Lymphocytes # 1.2 10*3/uL (1.4-4.0); Lymphocytes % 12.4 % (21.2-54.2); Mean Corpuscular HGB Conc 29.2 GM/DL (32-36); Mean Corpuscular Volume 81.2 FL (87-102); Monocytes # 0.8 10*3/uL (0.11-0.8); Monocytes % 8.5 % (1.7-12.7); NRBC # 0.04 10*3/uL; Neutrophils % 72.9 % (38.7-73.9); Platelet Count 309 T/CUMM (130-400); Red Blood Count 3.41 MC/CUMM (3.8-5.5); Red Cell Distribution Width 16.9 % (9.3-17.3); White Blood Count 9.8 T/CUMM (4-12)
[2021-07-18 03:50] LABS: Alanine Aminotransferase 372 U/L (16-61); Albumin 1.4 G/DL (3.4-5.0); Alkaline Phosphatase 268 U/L (45-117); Aspartate Amino Transferase 187 U/L (0-37); Bilirubin,Total < 0.39 MG/DL (0.20-1.00); Blood Urea Nitrogen 49 MG/DL (7-18); Calcium 8.8 MG/DL (8.5-10.1); Carbon Dioxide 31 MMOL/L (21-32); Chloride 108 MMOL/L (98-107); Estimated Glom Filtration Rate 114 ML/MIN; Glucose 135 MG/DL (74-106); Osmolality,Calculated 293.4 MOS/KG (273-304); Potassium 4.5 MMOL/L (3.5-5.1); Sodium 140 MMOL/L (136-145); Total Protein 7.1 G/DL (6.4-8.2)
[2021-07-18 03:55] LABS: Arterial Base Excess iSTAT 5 MMOL/L (-2.5-2.5); Arterial Bicarbonate iSTAT 29.5 MMOL/L (20-26); Arterial O2 Saturation iSTAT 99 % (95-100); Arterial PCO2 iSTAT 43 MM HG (35-48); Arterial PO2 iSTAT 159 MM HG (80-95); Arterial Total CO2 iSTAT 31 MMO/L (23-27); Arterial pH iSTAT 7.448 (7.35-7.45)
[2021-07-18 04:09] LABS: Eosinophils 4 % (0-10); Hypochromia 1+; Lymphocytes 13 % (20-55); Microcytosis 1+; Total Cells Counted 100
[2021-07-18 04:10] LABS: Ovalocytes Slight; Platelet Estimate Normal
[2021-07-18] MEDS: lisinopriL 20 MG TABLET PER TUBE SCH (08:30)
[2021-07-18] MEDS: METOPROLOL TARTRATE 100 MG TABLET PER TUBE SCH ×2 (08:30→20:19)
[2021-07-18] MEDS: FAMOTIDINE 8 MG/ML 50 ML/BOTTLE PO SCH ×2 (08:30→20:19)
[2021-07-18] MEDS: ASPIRIN CHEW 81 MG TABLET PO SCH (08:30)
[2021-07-18] MEDS: chlorproMAZINE 25 MG TABLET PO SCH ×2 (08:30→20:19)
[2021-07-18] MEDS: amLODIPine 10 MG TABLET PER TUBE SCH (08:30)
[2021-07-18] MEDS: DOCUSATE SODIUM 100 MG/10 ML UDCUP PO SCH ×2 (08:30→20:19)
[2021-07-18] MEDS: ENOXAPARIN 40 MG/0.4 ML SYRINGE SUBCUT SCH (17:29)
[2021-07-19 03:24] LABS: Basophils # 0.1 10*3/uL (0.0-0.2); Basophils % 0.6 % (0.0-0.8); Eosinophils # 0.4 10*3/uL (0.0-0.87); Eosinophils % 5.2 % (0.00-10.9); Hematocrit 27.1 VOL% (42.0-52.0); Immature Granulocytes % 2.1 %; Immature Granulocytes Absolute 0.17 #; Lymphocytes % 12.8 % (21.2-54.2); Mean Corpuscular HGB Conc 29.5 GM/DL (32-36); Mean Corpuscular Volume 83.4 FL (87-102); Mean Platelet Volume 12.6 FL (9.6-12.0); Monocytes % 12.3 % (1.7-12.7); NRBC # 0.04 10*3/uL; Platelet Count 292 T/CUMM (130-400); Red Blood Count 3.25 MC/CUMM (3.8-5.5); Red Cell Distribution Width 16.8 % (9.3-17.3); White Blood Count 8.1 T/CUMM (4-12)
[2021-07-19 03:44] LABS: ABG Base Excess 3.9 MMOL/L (-2.5-2.5); ABG Oxygen Saturation 99.3 % (95-100); ABG PCO2 38.3 MM HG (35-48); ABG PH 7.469 (7.35-7.45); ABG TCO2 25.9 MMOL/L (23-27)
[2021-07-19 04:03] LABS: Albumin 1.4 G/DL (3.4-5.0); Bilirubin,Total 0.4 MG/DL (0.20-1.00); Calcium 8.5 MG/DL (8.5-10.1); Hypochromia 2+; Osmolality,Calculated 289.4 MOS/KG (273-304); Potassium 4.6 MMOL/L (3.5-5.1)
[2021-07-19 04:04] LABS: Microcytosis 1+; Platelet Estimate Normal
[2021-07-19] MEDS: INSULIN REGULAR 100 UNIT/ML SUBCUT SCH ×3 (05:53→17:14)
[2021-07-19] MEDS: DEXMEDETOMIDINE 200 MCG in SODIUM CHLORIDE 0.9% 48 ML IV PRN ×3 (06:40→21:10)
[2021-07-19] MEDS: chlorproMAZINE 25 MG TABLET PO SCH ×2 (08:54→20:56)
[2021-07-19] MEDS: METOPROLOL TARTRATE 100 MG TABLET PER TUBE SCH ×2 (08:55→20:56)
[2021-07-19] MEDS: amLODIPine 10 MG TABLET PER TUBE SCH (08:55)
[2021-07-19] MEDS: lisinopriL 20 MG TABLET PER TUBE SCH (08:55)
[2021-07-19] MEDS: ASPIRIN CHEW 81 MG TABLET PO SCH (08:55)
[2021-07-19] MEDS: FAMOTIDINE 8 MG/ML 50 ML/BOTTLE PO SCH ×2 (08:55→21:00)
[2021-07-19] MEDS: DOCUSATE SODIUM 100 MG/10 ML UDCUP PO SCH ×2 (09:02→20:57)
[2021-07-19] MEDS: ENOXAPARIN 40 MG/0.4 ML SYRINGE SUBCUT SCH (17:13)
[2021-07-20] MEDS: INSULIN REGULAR 100 UNIT/ML SUBCUT SCH ×4 (01:50→17:35)
[2021-07-20] MEDS: DEXMEDETOMIDINE 200 MCG in SODIUM CHLORIDE 0.9% 48 ML IV PRN ×4 (06:15→22:50)
[2021-07-20] MEDS ORDERED: DOCUSATE SODIUM 100 MG/10 ML UDCUP PO PRN (09:00)
[2021-07-20] MEDS: amLODIPine 10 MG TABLET PER TUBE SCH (09:30)
[2021-07-20] MEDS: chlorproMAZINE 25 MG TABLET PO SCH ×2 (09:30→21:03)
[2021-07-20] MEDS: FAMOTIDINE 8 MG/ML 50 ML/BOTTLE PO SCH ×2 (09:30→21:04)
[2021-07-20] MEDS: ASPIRIN CHEW 81 MG TABLET PO SCH (09:30)
[2021-07-20] MEDS: METOPROLOL TARTRATE 100 MG TABLET PER TUBE SCH ×2 (09:30→21:03)
[2021-07-20] MEDS: lisinopriL 20 MG TABLET PER TUBE SCH (09:30)
[2021-07-21] MEDS: INSULIN REGULAR 100 UNIT/ML SUBCUT SCH ×4 (00:44→17:30)
[2021-07-21 04:29] LABS: PT Patient Result 11.3 SECS (10.5-12.0)
[2021-07-21] MEDS: DEXMEDETOMIDINE 200 MCG in SODIUM CHLORIDE 0.9% 48 ML IV PRN ×2 (07:10→14:35)
[2021-07-21] MEDS ORDERED: LACTATED RINGERS 1,000 ML IV SCH (08:00)
[2021-07-21] MEDS ORDERED: LIDOCAINE 2% 5 ML VIAL ONE (09:28)
[2021-07-21] MEDS ORDERED: ETOMIDATE 40 MG/20 ML VIAL IV ONE (09:28)
[2021-07-21] MEDS ORDERED: propofoL 200 MG/20 ML VIAL IV ONE (09:28)
[2021-07-21] MEDS: lisinopriL 20 MG TABLET PER TUBE SCH (09:40)
[2021-07-21] MEDS: amLODIPine 10 MG TABLET PER TUBE SCH (09:40)
[2021-07-21] MEDS: METOPROLOL TARTRATE 100 MG TABLET PER TUBE SCH ×2 (09:40→21:58)
[2021-07-21] MEDS: ASPIRIN CHEW 81 MG TABLET PO SCH (09:40)
[2021-07-21] MEDS: chlorproMAZINE 25 MG TABLET PO SCH ×2 (09:40→21:57)
[2021-07-21] MEDS: FAMOTIDINE 8 MG/ML 50 ML/BOTTLE PO SCH ×2 (12:20→21:58)
[2021-07-21] MEDS: DEXMEDETOMIDINE 400 MCG in SODIUM CHLORIDE 0.9% 96 ML IV PRN (22:46)
[2021-07-22] MEDS: INSULIN REGULAR 100 UNIT/ML SUBCUT SCH ×4 (00:44→17:55)
[2021-07-22 03:40] LABS: Arterial Base Excess iSTAT 5 MMOL/L (-2.5-2.5); Arterial Bicarbonate iSTAT 29.8 MMOL/L (20-26); Arterial O2 Saturation iSTAT 99 % (95-100); Arterial PCO2 iSTAT 43 MM HG (35-48); Arterial PO2 iSTAT 138 MM HG (80-95); Arterial Total CO2 iSTAT 31 MMO/L (23-27); Arterial pH iSTAT 7.444 (7.35-7.45)
[2021-07-22 04:01] LABS: Basophils % 0.3 % (0.0-0.8); Eosinophils # 0.2 10*3/uL (0.0-0.87); Eosinophils % 1.8 % (0.00-10.9); Hemoglobin 8.6 GM/DL (14.0-18.0); Immature Granulocytes % 4.1 %; Immature Granulocytes Absolute 0.37 #; Lymphocytes # 1.1 10*3/uL (1.4-4.0); Lymphocytes % 11.9 % (21.2-54.2); Mean Corpuscular HGB Conc 29.7 GM/DL (32-36); Mean Corpuscular Volume 82.4 FL (87-102); Mean Platelet Volume 12.9 FL (9.6-12.0); Monocytes # 0.6 10*3/uL (0.11-0.8); NRBC # 0.02 10*3/uL; Neutrophils % 74.9 % (38.7-73.9); Platelet Count 177 T/CUMM (130-400); Red Blood Count 3.52 MC/CUMM (3.8-5.5)
[2021-07-22 04:14] LABS: Calcium 8.9 MG/DL (8.5-10.1); Osmolality,Calculated 280.8 MOS/KG (273-304); Potassium 4.5 MMOL/L (3.5-5.1)
[2021-07-22 04:22] LABS: Atypical Lymphocytes Few; Band Neutrophils 2 % (0-10); Eosinophils 3 % (0-10); Hypochromia 1+; Lymphocytes 13 % (20-55); Myelocytes 2 %; Promyelocytes 1 %; Total Cells Counted 100
[2021-07-22 04:23] LABS: Microcytosis 1+; Polychromasia Slight
[2021-07-22 06:36] LABS: Mucus,Urine Occasional /LPF (Occasional); RBC,Urine 146 /HPF (0-4); Urine Appearance Clear (Clear); Urine Color Yellow (Yellow)
[2021-07-22 06:37] LABS: Bilirubin,Urine Negative (Negative); Blood, Urine Moderate mg/dL (Negative); Glucose,Urine (UA) Negative (Negative); Ketones,Urine Negative (Negative); Nitrite,Urine Negative (Negative); Protein,Urine >=300 mg/dL (Negative); Urine Specific Gravity 1.025 (1.001-1.035); Urine Urobilinogen 0.2 eU/dL (<2.0)
[2021-07-22] MEDS: MAGNESIUM SULF RIDER 2 GM/50 ML PREMIX IV PRN (08:20)
[2021-07-22] MEDS: METOPROLOL TARTRATE 100 MG TABLET PER TUBE SCH ×2 (08:25→21:30)
[2021-07-22] MEDS: chlorproMAZINE 25 MG TABLET PO SCH ×2 (08:25→21:30)
[2021-07-22] MEDS: FAMOTIDINE 8 MG/ML 50 ML/BOTTLE PO SCH ×2 (08:25→21:30)
[2021-07-22] MEDS: ASPIRIN CHEW 81 MG TABLET PO SCH (08:25)
[2021-07-22] MEDS: amLODIPine 10 MG TABLET PER TUBE SCH (08:25)
[2021-07-22] MEDS: lisinopriL 20 MG TABLET PER TUBE SCH (08:25)
[2021-07-22] MEDS: DEXMEDETOMIDINE 400 MCG in SODIUM CHLORIDE 0.9% 96 ML IV PRN (16:30)
[2021-07-22] MEDS: levETIRAcetam LIQUID 100 MG/ML 30 ML/BOTTLE PO SCH (21:30)
[2021-07-23] MEDS: INSULIN REGULAR 100 UNIT/ML SUBCUT SCH ×4 (00:50→22:19)
[2021-07-23] MEDS: ASPIRIN CHEW 81 MG TABLET PO SCH (08:18)
[2021-07-23] MEDS: chlorproMAZINE 25 MG TABLET PO SCH ×2 (08:18→22:52)
[2021-07-23] MEDS: amLODIPine 10 MG TABLET PER TUBE SCH (08:19)
[2021-07-23] MEDS: METOPROLOL TARTRATE 100 MG TABLET PER TUBE SCH ×2 (08:19→22:51)
[2021-07-23] MEDS: levETIRAcetam LIQUID 100 MG/ML 30 ML/BOTTLE PO SCH ×2 (08:19→23:07)
[2021-07-23] MEDS: lisinopriL 20 MG TABLET PER TUBE SCH (08:19)
[2021-07-23] MEDS: FAMOTIDINE 8 MG/ML 50 ML/BOTTLE PEG SCH ×2 (08:20→23:07)
[2021-07-23] MEDS: DEXMEDETOMIDINE 400 MCG in SODIUM CHLORIDE 0.9% 96 ML IV PRN (12:15)
[2021-07-24] MEDS: DEXMEDETOMIDINE 400 MCG in SODIUM CHLORIDE 0.9% 96 ML IV PRN (04:55)
[2021-07-24] MEDS: amLODIPine 10 MG TABLET PER TUBE SCH (08:14)
[2021-07-24] MEDS: ASPIRIN CHEW 81 MG TABLET PO SCH (08:14)
[2021-07-24] MEDS: INSULIN REGULAR 100 UNIT/ML SUBCUT SCH ×2 (08:14→21:16)
[2021-07-24] MEDS: lisinopriL 20 MG TABLET PER TUBE SCH (08:14)
[2021-07-24] MEDS: chlorproMAZINE 25 MG TABLET PO SCH ×2 (08:14→21:17)
[2021-07-24] MEDS: METOPROLOL TARTRATE 100 MG TABLET PER TUBE SCH ×2 (08:14→21:17)
[2021-07-24] MEDS: levETIRAcetam LIQUID 100 MG/ML 30 ML/BOTTLE PO SCH ×2 (08:15→21:32)
[2021-07-24] MEDS: FAMOTIDINE 8 MG/ML 50 ML/BOTTLE PEG SCH ×2 (08:15→21:19)
[2021-07-24] MEDS: ENOXAPARIN 40 MG/0.4 ML SYRINGE SUBCUT SCH (10:23)
[2021-07-25 04:14] LABS: Arterial Base Excess iSTAT 7 MMOL/L (-2.5-2.5); Arterial Bicarbonate iSTAT 31.9 MMOL/L (20-26); Arterial O2 Saturation iSTAT 99 % (95-100); Arterial PCO2 iSTAT 46 MM HG (35-48); Arterial PO2 iSTAT 119 MM HG (80-95); Arterial Total CO2 iSTAT 33 MMO/L (23-27); Arterial pH iSTAT 7.445 (7.35-7.45)
[2021-07-25 05:22] LABS: Basophils % 0.4 % (0.0-0.8); Eosinophils # 0.3 10*3/uL (0.0-0.87); Eosinophils % 2.6 % (0.00-10.9); Hematocrit 28.7 VOL% (42.0-52.0); Hemoglobin 8.5 GM/DL (14.0-18.0); Immature Granulocytes % 5.8 %; Immature Granulocytes Absolute 0.55 #; Lymphocytes # 1.1 10*3/uL (1.4-4.0); Lymphocytes % 11.8 % (21.2-54.2); Mean Corpuscular HGB Conc 29.6 GM/DL (32-36); Mean Corpuscular Volume 81.8 FL (87-102); Mean Platelet Volume 10.8 FL (9.6-12.0); Monocytes # 0.8 10*3/uL (0.11-0.8); Monocytes % 8.5 % (1.7-12.7); NRBC # 0.03 10*3/uL; Neutrophils % 70.9 % (38.7-73.9); Platelet Count 320 T/CUMM (130-400); Red Blood Count 3.51 MC/CUMM (3.8-5.5); Red Cell Distribution Width 17.2 % (9.3-17.3); White Blood Count 9.5 T/CUMM (4-12)
[2021-07-25 05:53] LABS: Albumin 1.5 G/DL (3.4-5.0); Bilirubin,Total 0.4 MG/DL (0.20-1.00); Calcium 8.7 MG/DL (8.5-10.1); Potassium 4.1 MMOL/L (3.5-5.1); Total Protein 7.3 G/DL (6.4-8.2)
[2021-07-25 06:08] LABS: Band Neutrophils 1 % (0-10); Eosinophils 3 % (0-10); Hypochromia 1+; Lymphocytes 7 % (20-55); Microcytosis 1+; Platelet Estimate Adequate; Total Cells Counted 100
[2021-07-25] MEDS: METOPROLOL TARTRATE 100 MG TABLET PER TUBE SCH ×2 (08:48→22:10)
[2021-07-25] MEDS: ASPIRIN CHEW 81 MG TABLET PO SCH (08:48)
[2021-07-25] MEDS: chlorproMAZINE 25 MG TABLET PO SCH ×2 (08:48→22:10)
[2021-07-25] MEDS: lisinopriL 20 MG TABLET PER TUBE SCH (08:49)
[2021-07-25] MEDS: amLODIPine 10 MG TABLET PER TUBE SCH (08:49)
[2021-07-25] MEDS: levETIRAcetam LIQUID 100 MG/ML 30 ML/BOTTLE PO SCH ×2 (09:16→22:16)
[2021-07-25] MEDS: FAMOTIDINE 8 MG/ML 50 ML/BOTTLE PEG SCH ×2 (09:16→22:17)
[2021-07-25] MEDS: INSULIN REGULAR 100 UNIT/ML SUBCUT SCH ×2 (10:49→22:05)
[2021-07-25] MEDS: ENOXAPARIN 40 MG/0.4 ML SYRINGE SUBCUT SCH (10:49)
[2021-07-26] MEDS: INSULIN REGULAR 100 UNIT/ML SUBCUT SCH ×2 (08:44→21:51)
[2021-07-26] MEDS: METOPROLOL TARTRATE 100 MG TABLET PER TUBE SCH ×2 (08:59→21:51)
[2021-07-26] MEDS: amLODIPine 10 MG TABLET PER TUBE SCH (08:59)
[2021-07-26] MEDS: lisinopriL 20 MG TABLET PER TUBE SCH (08:59)
[2021-07-26] MEDS: chlorproMAZINE 25 MG TABLET PO SCH ×2 (08:59→21:51)
[2021-07-26] MEDS: ASPIRIN CHEW 81 MG TABLET PO SCH (08:59)
[2021-07-26] MEDS: FAMOTIDINE 8 MG/ML 50 ML/BOTTLE PEG SCH ×2 (09:00→21:52)
[2021-07-26] MEDS: levETIRAcetam LIQUID 100 MG/ML 30 ML/BOTTLE PO SCH ×2 (09:01→21:51)
[2021-07-26] MEDS: ENOXAPARIN 40 MG/0.4 ML SYRINGE SUBCUT SCH (11:16)
[2021-07-27] MEDS: INSULIN REGULAR 100 UNIT/ML SUBCUT SCH ×2 (08:40→21:44)
[2021-07-27] MEDS: ENOXAPARIN 40 MG/0.4 ML SYRINGE SUBCUT SCH (08:45)
[2021-07-27] MEDS: amLODIPine 10 MG TABLET PER TUBE SCH (08:50)
[2021-07-27] MEDS: METOPROLOL TARTRATE 100 MG TABLET PER TUBE SCH ×2 (08:50→21:51)
[2021-07-27] MEDS: ASPIRIN CHEW 81 MG TABLET PO SCH (08:50)
[2021-07-27] MEDS: lisinopriL 20 MG TABLET PER TUBE SCH (08:50)
[2021-07-27] MEDS: chlorproMAZINE 25 MG TABLET PO SCH ×2 (08:50→21:51)
[2021-07-27] MEDS: levETIRAcetam LIQUID 100 MG/ML 30 ML/BOTTLE PO SCH ×2 (08:50→21:53)
[2021-07-27] MEDS: FAMOTIDINE 8 MG/ML 50 ML/BOTTLE PEG SCH ×2 (08:50→21:53)
[2021-07-28 04:04] LABS: Arterial Base Excess iSTAT 8 MMOL/L (-2.5-2.5); Arterial Bicarbonate iSTAT 32.1 MMOL/L (20-26); Arterial O2 Saturation iSTAT 99 % (95-100); Arterial PCO2 iSTAT 43 MM HG (35-48); Arterial PO2 iSTAT 134 MM HG (80-95); Arterial Total CO2 iSTAT 33 MMO/L (23-27); Arterial pH iSTAT 7.487 (7.35-7.45)
[2021-07-28 05:18] LABS: Basophils % 0.4 % (0.0-0.8); Eosinophils # 0.2 10*3/uL (0.0-0.87); Eosinophils % 2.7 % (0.00-10.9); Hematocrit 28.9 VOL% (42.0-52.0); Hemoglobin 8.6 GM/DL (14.0-18.0); Immature Granulocytes % 4.9 %; Immature Granulocytes Absolute 0.44 #; Lymphocytes % 10.8 % (21.2-54.2); Mean Corpuscular HGB Conc 29.8 GM/DL (32-36); Mean Corpuscular Volume 82.3 FL (87-102); Mean Platelet Volume 10.3 FL (9.6-12.0); Monocytes % 11.4 % (1.7-12.7); NRBC # 0.03 10*3/uL; Neutrophils % 69.8 % (38.7-73.9); Platelet Count 318 T/CUMM (130-400); Red Blood Count 3.51 MC/CUMM (3.8-5.5); Red Cell Distribution Width 17.2 % (9.3-17.3)
[2021-07-28 05:37] LABS: Albumin 1.5 G/DL (3.4-5.0); Bilirubin,Total 0.4 MG/DL (0.20-1.00); Calcium 8.7 MG/DL (8.5-10.1); Osmolality,Calculated 278.8 MOS/KG (273-304); Potassium 4.5 MMOL/L (3.5-5.1); Total Protein 7.1 G/DL (6.4-8.2)
[2021-07-28 05:44] LABS: Eosinophils 7 % (0-10); Hypochromia 1+; Lymphocytes 14 % (20-55); Microcytosis 1+; Nucleated Red Blood Cells 1 (0-5); Platelet Estimate Adequate; Total Cells Counted 100
[2021-07-28] MEDS: ASPIRIN CHEW 81 MG TABLET PO SCH (08:03)
[2021-07-28] MEDS: lisinopriL 20 MG TABLET PER TUBE SCH (08:03)
[2021-07-28] MEDS: METOPROLOL TARTRATE 100 MG TABLET PER TUBE SCH ×2 (08:03→20:27)
[2021-07-28] MEDS: amLODIPine 10 MG TABLET PER TUBE SCH (08:04)
[2021-07-28] MEDS: chlorproMAZINE 25 MG TABLET PO SCH ×2 (08:04→20:27)
[2021-07-28] MEDS: INSULIN REGULAR 100 UNIT/ML SUBCUT SCH ×2 (08:18→21:17)
[2021-07-28] MEDS: FAMOTIDINE 8 MG/ML 50 ML/BOTTLE PEG SCH ×2 (08:18→20:28)
[2021-07-28] MEDS: levETIRAcetam LIQUID 100 MG/ML 30 ML/BOTTLE PO SCH ×2 (08:18→20:28)
[2021-07-28] MEDS: ENOXAPARIN 40 MG/0.4 ML SYRINGE SUBCUT SCH (13:49)
[2021-07-29] MEDS: ASPIRIN CHEW 81 MG TABLET PO SCH (08:02)
[2021-07-29] MEDS: amLODIPine 10 MG TABLET PER TUBE SCH (08:02)
[2021-07-29] MEDS: METOPROLOL TARTRATE 100 MG TABLET PER TUBE SCH ×2 (08:02→20:22)
[2021-07-29] MEDS: lisinopriL 20 MG TABLET PER TUBE SCH (08:02)
[2021-07-29] MEDS: chlorproMAZINE 25 MG TABLET PO SCH ×2 (08:02→20:21)
[2021-07-29] MEDS: FAMOTIDINE 8 MG/ML 50 ML/BOTTLE PEG SCH ×2 (08:03→20:22)
[2021-07-29] MEDS: levETIRAcetam LIQUID 100 MG/ML 30 ML/BOTTLE PO SCH ×2 (08:03→20:22)
[2021-07-29] MEDS: INSULIN REGULAR 100 UNIT/ML SUBCUT SCH ×2 (08:44→20:22)
[2021-07-29] MEDS: ENOXAPARIN 40 MG/0.4 ML SYRINGE SUBCUT SCH (12:15)
[2021-07-30] MEDS: lisinopriL 20 MG TABLET PER TUBE SCH (07:50)
[2021-07-30] MEDS: FAMOTIDINE 8 MG/ML 50 ML/BOTTLE PEG SCH ×2 (07:50→20:05)
[2021-07-30] MEDS: chlorproMAZINE 25 MG TABLET PO SCH ×2 (07:50→20:04)
[2021-07-30] MEDS: METOPROLOL TARTRATE 100 MG TABLET PER TUBE SCH ×2 (07:50→20:04)
[2021-07-30] MEDS: levETIRAcetam LIQUID 100 MG/ML 30 ML/BOTTLE PO SCH ×2 (07:50→20:05)
[2021-07-30] MEDS: amLODIPine 10 MG TABLET PER TUBE SCH (07:50)
[2021-07-30] MEDS: ASPIRIN CHEW 81 MG TABLET PO SCH (07:50)
[2021-07-30] MEDS: ENOXAPARIN 40 MG/0.4 ML SYRINGE SUBCUT SCH (07:55)
[2021-07-30] MEDS: INSULIN REGULAR 100 UNIT/ML SUBCUT SCH ×2 (08:00→20:05)
[2021-07-31 03:59] LABS: Basophils % 0.5 % (0.0-0.8); Eosinophils # 0.3 10*3/uL (0.0-0.87); Eosinophils % 4.1 % (0.00-10.9); Hematocrit 31.7 VOL% (42.0-52.0); Hemoglobin 9.3 GM/DL (14.0-18.0); Immature Granulocytes % 2.8 %; Immature Granulocytes Absolute 0.22 #; Lymphocytes % 12.3 % (21.2-54.2); Mean Corpuscular HGB Conc 29.3 GM/DL (32-36); Monocytes # 0.7 10*3/uL (0.11-0.8); Monocytes % 8.9 % (1.7-12.7); Neutrophils % 71.4 % (38.7-73.9); Platelet Count 295 T/CUMM (130-400); Red Blood Count 3.82 MC/CUMM (3.8-5.5); Red Cell Distribution Width 17.5 % (9.3-17.3); White Blood Count 7.8 T/CUMM (4-12)
[2021-07-31 04:20] LABS: Calcium 9.2 MG/DL (8.5-10.1); Osmolality,Calculated 282.8 MOS/KG (273-304); Potassium 4.3 MMOL/L (3.5-5.1)
[2021-07-31 04:24] LABS: Arterial Base Excess iSTAT 8 MMOL/L (-2.5-2.5); Arterial Bicarbonate iSTAT 32.8 MMOL/L (20-26); Arterial O2 Saturation iSTAT 99 % (95-100); Arterial PCO2 iSTAT 44 MM HG (35-48); Arterial PO2 iSTAT 142 MM HG (80-95); Arterial Total CO2 iSTAT 34 MMO/L (23-27); Arterial pH iSTAT 7.477 (7.35-7.45)
[2021-07-31 04:26] LABS: Band Neutrophils 2 % (0-10); Eosinophils 5 % (0-10); Hypochromia 1+; Lymphocytes 7 % (20-55); Microcytosis 1+; Platelet Estimate Adequate; Total Cells Counted 100
[2021-07-31] MEDS: lisinopriL 20 MG TABLET PER TUBE SCH (07:50)
[2021-07-31] MEDS: ENOXAPARIN 40 MG/0.4 ML SYRINGE SUBCUT SCH (07:55)
[2021-07-31] MEDS: levETIRAcetam LIQUID 100 MG/ML 30 ML/BOTTLE PO SCH ×2 (07:55→20:13)
[2021-07-31] MEDS: chlorproMAZINE 25 MG TABLET PO SCH ×2 (07:55→20:13)
[2021-07-31] MEDS: ASPIRIN CHEW 81 MG TABLET PO SCH (07:55)
[2021-07-31] MEDS: amLODIPine 10 MG TABLET PER TUBE SCH (07:55)
[2021-07-31] MEDS: FAMOTIDINE 8 MG/ML 50 ML/BOTTLE PEG SCH ×2 (07:55→20:13)
[2021-07-31] MEDS: METOPROLOL TARTRATE 100 MG TABLET PER TUBE SCH ×2 (07:55→20:13)
[2021-07-31] MEDS: INSULIN REGULAR 100 UNIT/ML SUBCUT SCH ×2 (08:55→20:13)
[2021-08-01] MEDS: FAMOTIDINE 8 MG/ML 50 ML/BOTTLE PEG SCH ×2 (08:45→20:55)
[2021-08-01] MEDS: lisinopriL 20 MG TABLET PER TUBE SCH (08:46)
[2021-08-01] MEDS: amLODIPine 10 MG TABLET PER TUBE SCH (08:46)
[2021-08-01] MEDS: chlorproMAZINE 25 MG TABLET PO SCH ×2 (08:46→20:53)
[2021-08-01] MEDS: ASPIRIN CHEW 81 MG TABLET PO SCH (08:46)
[2021-08-01] MEDS: METOPROLOL TARTRATE 100 MG TABLET PER TUBE SCH ×2 (08:47→20:53)
[2021-08-01] MEDS: ENOXAPARIN 40 MG/0.4 ML SYRINGE SUBCUT SCH (08:48)
[2021-08-01] MEDS: levETIRAcetam LIQUID 100 MG/ML 30 ML/BOTTLE PO SCH ×2 (08:49→20:53)
[2021-08-01] MEDS: INSULIN REGULAR 100 UNIT/ML SUBCUT SCH ×2 (08:59→20:56)
[2021-08-02 03:59] LABS: Arterial Base Excess iSTAT 7 MMOL/L (-2.5-2.5); Arterial Bicarbonate iSTAT 32.2 MMOL/L (20-26); Arterial O2 Saturation iSTAT 99 % (95-100); Arterial PCO2 iSTAT 47 MM HG (35-48); Arterial PO2 iSTAT 114 MM HG (80-95); Arterial Total CO2 iSTAT 34 MMO/L (23-27); Arterial pH iSTAT 7.448 (7.35-7.45)
[2021-08-02] MEDS: hydrALAZINE 20 MG/1 ML VIAL IV PRN (04:14)
[2021-08-02 04:19] LABS: Basophils % 0.6 % (0.0-0.8); Eosinophils # 0.2 10*3/uL (0.0-0.87); Eosinophils % 3.4 % (0.00-10.9); Hematocrit 31.6 VOL% (42.0-52.0); Hemoglobin 9.3 GM/DL (14.0-18.0); Immature Granulocytes % 1.6 %; Immature Granulocytes Absolute 0.11 #; Lymphocytes % 14.7 % (21.2-54.2); Mean Corpuscular HGB Conc 29.4 GM/DL (32-36); Mean Corpuscular Volume 83.2 FL (87-102); Mean Platelet Volume 10.6 FL (9.6-12.0); Monocytes # 0.7 10*3/uL (0.11-0.8); Monocytes % 10.8 % (1.7-12.7); Neutrophils % 68.9 % (38.7-73.9); Platelet Count 271 T/CUMM (130-400); White Blood Count 6.9 T/CUMM (4-12)
[2021-08-02 04:41] LABS: Alanine Aminotransferase 189 U/L (16-61); Albumin 1.8 G/DL (3.4-5.0); Alkaline Phosphatase 232 U/L (45-117); Aspartate Amino Transferase 72 U/L (0-37); Bilirubin,Total < 0.39 MG/DL (0.20-1.00); Blood Urea Nitrogen 32 MG/DL (7-18); Calcium 8.9 MG/DL (8.5-10.1); Carbon Dioxide 34 MMOL/L (21-32); Chloride 102 MMOL/L (98-107); Estimated Glom Filtration Rate 142 ML/MIN; Glucose 140 MG/DL (74-106); Hypochromia 1+; Microcytosis 1+; Osmolality,Calculated 281.8 MOS/KG (273-304); Polychromasia Slight; Potassium 4.2 MMOL/L (3.5-5.1); Sodium 137 MMOL/L (136-145); Total Protein 7.5 G/DL (6.4-8.2)
[2021-08-02 04:42] LABS: Platelet Estimate Normal
[2021-08-02] MEDS: levETIRAcetam LIQUID 100 MG/ML 30 ML/BOTTLE PO SCH ×2 (08:16→21:27)
[2021-08-02] MEDS: lisinopriL 20 MG TABLET PER TUBE SCH (08:22)
[2021-08-02] MEDS: ASPIRIN CHEW 81 MG TABLET PO SCH (08:23)
[2021-08-02] MEDS: METOPROLOL TARTRATE 100 MG TABLET PER TUBE SCH ×2 (08:23→21:27)
[2021-08-02] MEDS: amLODIPine 10 MG TABLET PER TUBE SCH (08:23)
[2021-08-02] MEDS: chlorproMAZINE 25 MG TABLET PO SCH ×2 (08:23→21:27)
[2021-08-02] MEDS: ENOXAPARIN 40 MG/0.4 ML SYRINGE SUBCUT SCH (08:23)
[2021-08-02] MEDS: FAMOTIDINE 8 MG/ML 50 ML/BOTTLE PEG SCH ×2 (08:24→21:27)
[2021-08-02] MEDS: INSULIN REGULAR 100 UNIT/ML SUBCUT SCH ×2 (09:28→21:30)
[2021-08-03] MEDS: amLODIPine 10 MG TABLET PER TUBE SCH (08:14)
[2021-08-03] MEDS: METOPROLOL TARTRATE 100 MG TABLET PER TUBE SCH ×2 (08:14→22:33)
[2021-08-03] MEDS: chlorproMAZINE 25 MG TABLET PO SCH ×2 (08:14→22:00)
[2021-08-03] MEDS: ASPIRIN CHEW 81 MG TABLET PO SCH (08:14)
[2021-08-03] MEDS: levETIRAcetam LIQUID 100 MG/ML 30 ML/BOTTLE PO SCH ×2 (08:15→22:00)
[2021-08-03] MEDS: ENOXAPARIN 40 MG/0.4 ML SYRINGE SUBCUT SCH (08:15)
[2021-08-03] MEDS: INSULIN REGULAR 100 UNIT/ML SUBCUT SCH ×2 (08:15→22:00)
[2021-08-03] MEDS: lisinopriL 20 MG TABLET PER TUBE SCH (08:15)
[2021-08-03] MEDS: FAMOTIDINE 8 MG/ML 50 ML/BOTTLE PEG SCH ×2 (08:16→22:00)
[2021-08-03] MEDS: hydrALAZINE 25 MG TABLET PO SCH (22:00)
[2021-08-04 04:41] LABS: Basophils % 0.2 % (0.0-0.8); Eosinophils % 0.1 % (0.00-10.9); Hemoglobin 10.1 GM/DL (14.0-18.0); Immature Granulocytes % 0.8 %; Immature Granulocytes Absolute 0.11 #; Lymphocytes # 1.3 10*3/uL (1.4-4.0); Lymphocytes % 9.2 % (21.2-54.2); Mean Corpuscular HGB Conc 29.7 GM/DL (32-36); Mean Corpuscular Volume 82.7 FL (87-102); Mean Platelet Volume 10.5 FL (9.6-12.0); Monocytes # 1.1 10*3/uL (0.11-0.8); Neutrophils % 81.7 % (38.7-73.9); Platelet Count 272 T/CUMM (130-400); Red Blood Count 4.11 MC/CUMM (3.8-5.5); Red Cell Distribution Width 18.1 % (9.3-17.3); White Blood Count 13.7 T/CUMM (4-12)
[2021-08-04 04:49] LABS: Alanine Aminotransferase 155 U/L (16-61); Alkaline Phosphatase 159 U/L (45-117); Aspartate Amino Transferase 47 U/L (0-37); Bilirubin,Total < 0.39 MG/DL (0.20-1.00); Blood Urea Nitrogen 39 MG/DL (7-18); Calcium 9.7 MG/DL (8.5-10.1); Carbon Dioxide 32 MMOL/L (21-32); Chloride 106 MMOL/L (98-107); Estimated Glom Filtration Rate 112 ML/MIN; Glucose 130 MG/DL (74-106); Osmolality,Calculated 289.4 MOS/KG (273-304); Potassium 4.6 MMOL/L (3.5-5.1); Sodium 140 MMOL/L (136-145); Total Protein 7.9 G/DL (6.4-8.2)
[2021-08-04 05:05] LABS: Hypochromia Slight; Lymphocytes 11 % (20-55); Microcytosis Slight; Platelet Estimate Adequate; Total Cells Counted 100
[2021-08-04] MEDS: INSULIN REGULAR 100 UNIT/ML SUBCUT SCH ×2 (09:20→21:40)
[2021-08-04] MEDS: hydrALAZINE 25 MG TABLET PO SCH ×2 (09:23→21:34)
[2021-08-04] MEDS: METOPROLOL TARTRATE 100 MG TABLET PER TUBE SCH ×2 (09:23→21:34)
[2021-08-04] MEDS: ENOXAPARIN 40 MG/0.4 ML SYRINGE SUBCUT SCH (09:23)
[2021-08-04] MEDS: ASPIRIN CHEW 81 MG TABLET PO SCH (09:24)
[2021-08-04] MEDS: chlorproMAZINE 25 MG TABLET PO SCH ×2 (09:24→21:40)
[2021-08-04] MEDS: amLODIPine 10 MG TABLET PER TUBE SCH (09:25)
[2021-08-04] MEDS: lisinopriL 20 MG TABLET PER TUBE SCH (09:26)
[2021-08-04] MEDS: levETIRAcetam LIQUID 100 MG/ML 30 ML/BOTTLE PO SCH ×2 (09:27→21:35)
[2021-08-04] MEDS: FAMOTIDINE 8 MG/ML 50 ML/BOTTLE PEG SCH ×2 (09:28→21:37)
[2021-08-04 13:47] LABS: Hyaline Casts,Urine 6 /LPF (0-3); Mucus,Urine Occasional /LPF (Occasional); RBC,Urine 2 /HPF (0-4); Squamous Epithelial Cell,Urine Occasional /HPF (0-10)
[2021-08-04 13:50] LABS: Bilirubin,Urine Negative (Negative); Glucose,Urine (UA) Negative (Negative); Ketones,Urine Negative (Negative); Nitrite,Urine Negative (Negative); Protein,Urine 30 mg/dL (Negative); Urine Appearance Clear (Clear); Urine Color Yellow (Yellow); Urine pH 5.5 (4.5-8.0)
[2021-08-04 13:51] LABS: Blood, Urine Negative (Negative); Urine Urobilinogen 0.2 eU/dL (<2.0)
[2021-08-05 07:01] LABS: Calcium 9.6 MG/DL (8.5-10.1); Osmolality,Calculated 302.8 MOS/KG (273-304); Potassium 4.4 MMOL/L (3.5-5.1)
[2021-08-05 07:40] LABS: Basophils # 0.1 10*3/uL (0.0-0.2); Basophils % 0.3 % (0.0-0.8); Eosinophils % 0.1 % (0.00-10.9); Immature Granulocytes % 0.5 %; Immature Granulocytes Absolute 0.08 #; Lymphocytes # 0.6 10*3/uL (1.4-4.0); Lymphocytes % 3.9 % (21.2-54.2); Mean Corpuscular HGB Conc 29.7 GM/DL (32-36); Mean Corpuscular Volume 82.6 FL (87-102); Mean Platelet Volume 11.3 FL (9.6-12.0); Monocytes # 1.2 10*3/uL (0.11-0.8); Monocytes % 7.9 % (1.7-12.7); Neutrophils % 87.3 % (38.7-73.9); Platelet Count 277 T/CUMM (130-400); Red Blood Count 4.36 MC/CUMM (3.8-5.5); Red Cell Distribution Width 18.5 % (9.3-17.3)
[2021-08-05 07:41] LABS: Hemoglobin 10.7 GM/DL (14.0-18.0)
[2021-08-05 07:51] LABS: Anisocytosis 1+; Band Neutrophils 3 % (0-10); Lymphocytes 5 % (20-55); Platelet Estimate Normal; Total Cells Counted 100
[2021-08-05 07:52] LABS: Macrocytosis Slight
[2021-08-05] MEDS: chlorproMAZINE 25 MG TABLET PO SCH ×2 (08:01→22:07)
[2021-08-05] MEDS: lisinopriL 20 MG TABLET PER TUBE SCH (08:01)
[2021-08-05] MEDS: METOPROLOL TARTRATE 100 MG TABLET PER TUBE SCH ×2 (08:06→22:07)
[2021-08-05] MEDS: ACETAMINOPHEN 325 MG TABLET PO PRN (08:07)
[2021-08-05] MEDS: ASPIRIN CHEW 81 MG TABLET PO SCH (08:08)
[2021-08-05] MEDS: INSULIN REGULAR 100 UNIT/ML SUBCUT SCH ×2 (08:08→22:08)
[2021-08-05] MEDS: levETIRAcetam LIQUID 100 MG/ML 30 ML/BOTTLE PO SCH ×2 (08:08→22:12)
[2021-08-05] MEDS: hydrALAZINE 25 MG TABLET PO SCH ×2 (08:08→22:07)
[2021-08-05] MEDS: amLODIPine 10 MG TABLET PER TUBE SCH (08:09)
[2021-08-05] MEDS: FAMOTIDINE 8 MG/ML 50 ML/BOTTLE PEG SCH ×2 (08:09→22:12)
[2021-08-05] MEDS: ENOXAPARIN 40 MG/0.4 ML SYRINGE SUBCUT SCH (08:09)
[2021-08-05] MEDS: PIPERACILLIN/TAZOBACTAM 3,375 MG in SODIUM CHLORIDE 0.9% 100 ML IV SCH ×2 (13:06→22:07)
[2021-08-06] MEDS: ACETAMINOPHEN 325 MG TABLET PO PRN (00:21)
[2021-08-06] MEDS: PIPERACILLIN/TAZOBACTAM 3,375 MG in SODIUM CHLORIDE 0.9% 100 ML IV SCH ×3 (05:32→21:40)
[2021-08-06 06:14] LABS: Basophils % 0.3 % (0.0-0.8); Eosinophils % 0.1 % (0.00-10.9); Hematocrit 33.2 VOL% (42.0-52.0); Hemoglobin 9.8 GM/DL (14.0-18.0); Immature Granulocytes % 0.4 %; Immature Granulocytes Absolute 0.05 #; Lymphocytes # 1.2 10*3/uL (1.4-4.0); Lymphocytes % 10.4 % (21.2-54.2); Mean Corpuscular HGB Conc 29.5 GM/DL (32-36); Mean Corpuscular Volume 82.8 FL (87-102); Mean Platelet Volume 10.9 FL (9.6-12.0); Monocytes # 0.7 10*3/uL (0.11-0.8); Monocytes % 6.2 % (1.7-12.7); Neutrophils % 82.6 % (38.7-73.9); Platelet Count 247 T/CUMM (130-400); Red Blood Count 4.01 MC/CUMM (3.8-5.5); Red Cell Distribution Width 18.3 % (9.3-17.3); White Blood Count 11.2 T/CUMM (4-12)
[2021-08-06 06:28] LABS: Calcium 9.3 MG/DL (8.5-10.1); Osmolality,Calculated 315.6 MOS/KG (273-304); Potassium 3.8 MMOL/L (3.5-5.1)
[2021-08-06 06:36] LABS: Calcium 9.3 MG/DL (8.5-10.1); Osmolality,Calculated 311.8 MOS/KG (273-304); Potassium 3.9 MMOL/L (3.5-5.1)
[2021-08-06 06:41] LABS: Lymphocytes 9 % (20-55); Platelet Estimate Adequate; Total Cells Counted 100
[2021-08-06] MEDS: INSULIN REGULAR 100 UNIT/ML SUBCUT SCH ×2 (09:03→21:39)
[2021-08-06] MEDS: METOPROLOL TARTRATE 100 MG TABLET PER TUBE SCH ×2 (09:04→21:39)
[2021-08-06] MEDS: ASPIRIN CHEW 81 MG TABLET PO SCH (09:04)
[2021-08-06] MEDS: amLODIPine 10 MG TABLET PER TUBE SCH (09:04)
[2021-08-06] MEDS: ENOXAPARIN 40 MG/0.4 ML SYRINGE SUBCUT SCH (09:04)
[2021-08-06] MEDS: hydrALAZINE 25 MG TABLET PO SCH ×2 (09:04→21:38)
[2021-08-06] MEDS: lisinopriL 20 MG TABLET PER TUBE SCH (09:04)
[2021-08-06] MEDS: chlorproMAZINE 25 MG TABLET PO SCH ×2 (09:04→21:38)
[2021-08-06] MEDS: levETIRAcetam LIQUID 100 MG/ML 30 ML/BOTTLE PO SCH ×2 (09:05→21:39)
[2021-08-06] MEDS: FAMOTIDINE 8 MG/ML 50 ML/BOTTLE PEG SCH ×2 (09:06→21:39)
[2021-08-06] MEDS: LINEZOLID INJ 600 MG/300 ML PREMIX IV SCH (11:02)
[2021-08-06] MEDS: SODIUM CHLORIDE 0.9% 1,000 ML IV SCH (11:02)
[2021-08-07] MEDS: LINEZOLID INJ 600 MG/300 ML PREMIX IV SCH ×3 (02:00→20:54)
[2021-08-07] MEDS: SODIUM CHLORIDE 0.9% 1,000 ML IV SCH ×2 (02:51→06:38)
[2021-08-07 06:03] LABS: Basophils % 0.3 % (0.0-0.8); Eosinophils # 0.1 10*3/uL (0.0-0.87); Eosinophils % 0.6 % (0.00-10.9); Hematocrit 29.7 VOL% (42.0-52.0); Hemoglobin 8.7 GM/DL (14.0-18.0); Immature Granulocytes % 0.7 %; Immature Granulocytes Absolute 0.07 #; Lymphocytes # 1.1 10*3/uL (1.4-4.0); Lymphocytes % 11.2 % (21.2-54.2); Mean Corpuscular HGB Conc 29.3 GM/DL (32-36); Mean Corpuscular Volume 83.4 FL (87-102); Mean Platelet Volume 11.1 FL (9.6-12.0); Monocytes # 0.7 10*3/uL (0.11-0.8); Monocytes % 6.7 % (1.7-12.7); Neutrophils % 80.5 % (38.7-73.9); Platelet Count 202 T/CUMM (130-400); Red Blood Count 3.56 MC/CUMM (3.8-5.5); Red Cell Distribution Width 18.3 % (9.3-17.3)
[2021-08-07 06:25] LABS: Calcium 8.7 MG/DL (8.5-10.1); Osmolality,Calculated 313.4 MOS/KG (273-304)
[2021-08-07 06:27] LABS: Band Neutrophils 8 % (0-10); Lymphocytes 9 % (20-55); Platelet Estimate Normal; Total Cells Counted 100
[2021-08-07 06:28] LABS: Anisocytosis 1+; Hypochromia Slight; Macrocytosis Slight
[2021-08-07] MEDS: PIPERACILLIN/TAZOBACTAM 3,375 MG in SODIUM CHLORIDE 0.9% 100 ML IV SCH ×3 (06:38→20:52)
[2021-08-07] MEDS: DEXTROSE 5% 1,000 ML IV SCH ×2 (10:30→23:30)
[2021-08-07] MEDS: lisinopriL 20 MG TABLET PER TUBE SCH (10:44)
[2021-08-07] MEDS: ASPIRIN CHEW 81 MG TABLET PO SCH (10:44)
[2021-08-07] MEDS: chlorproMAZINE 25 MG TABLET PO SCH ×2 (10:45→20:53)
[2021-08-07] MEDS: hydrALAZINE 25 MG TABLET PO SCH ×2 (10:46→20:53)
[2021-08-07] MEDS: FAMOTIDINE 8 MG/ML 50 ML/BOTTLE PEG SCH ×2 (10:46→20:55)
[2021-08-07] MEDS: levETIRAcetam LIQUID 100 MG/ML 30 ML/BOTTLE PO SCH ×2 (10:47→20:56)
[2021-08-07] MEDS: METOPROLOL TARTRATE 100 MG TABLET PER TUBE SCH ×2 (10:48→20:53)
[2021-08-07] MEDS: amLODIPine 10 MG TABLET PER TUBE SCH (10:48)
[2021-08-07] MEDS: ENOXAPARIN 40 MG/0.4 ML SYRINGE SUBCUT SCH (10:48)
[2021-08-07] MEDS: INSULIN REGULAR 100 UNIT/ML SUBCUT SCH ×2 (10:49→21:13)
[2021-08-08] MEDS: PIPERACILLIN/TAZOBACTAM 3,375 MG in SODIUM CHLORIDE 0.9% 100 ML IV SCH ×3 (04:12→23:15)
[2021-08-08 06:12] LABS: Basophils % 0.4 % (0.0-0.8); Eosinophils # 0.2 10*3/uL (0.0-0.87); Eosinophils % 2.1 % (0.00-10.9); Hematocrit 30.1 VOL% (42.0-52.0); Hemoglobin 8.7 GM/DL (14.0-18.0); Immature Granulocytes % 1.2 %; Immature Granulocytes Absolute 0.12 #; Lymphocytes # 0.9 10*3/uL (1.4-4.0); Lymphocytes % 8.9 % (21.2-54.2); Mean Corpuscular HGB Conc 28.9 GM/DL (32-36); Mean Platelet Volume 10.8 FL (9.6-12.0); Monocytes # 0.9 10*3/uL (0.11-0.8); Monocytes % 8.8 % (1.7-12.7); NRBC # 0.02 10*3/uL; Neutrophils % 78.6 % (38.7-73.9); Platelet Count 199 T/CUMM (130-400); Red Blood Count 3.54 MC/CUMM (3.8-5.5); Red Cell Distribution Width 17.9 % (9.3-17.3)
[2021-08-08 06:40] LABS: Anisocytosis 1+; Band Neutrophils 3 % (0-10); Eosinophils 5 % (0-10); Lymphocytes 12 % (20-55); Myelocytes 1 %; Platelet Estimate Normal; Total Cells Counted 100
[2021-08-08 06:41] LABS: Hypochromia 1+
[2021-08-08 06:44] LABS: Calcium 8.7 MG/DL (8.5-10.1); Osmolality,Calculated 303.7 MOS/KG (273-304); Potassium 4.1 MMOL/L (3.5-5.1)
[2021-08-08] MEDS: FAMOTIDINE 8 MG/ML 50 ML/BOTTLE PEG SCH ×2 (09:14→21:16)
[2021-08-08] MEDS: LINEZOLID INJ 600 MG/300 ML PREMIX IV SCH ×2 (09:14→21:15)
[2021-08-08] MEDS: ENOXAPARIN 40 MG/0.4 ML SYRINGE SUBCUT SCH (09:16)
[2021-08-08] MEDS: chlorproMAZINE 25 MG TABLET PO SCH ×2 (09:16→21:17)
[2021-08-08] MEDS: METOPROLOL TARTRATE 100 MG TABLET PER TUBE SCH ×2 (09:16→21:17)
[2021-08-08] MEDS: amLODIPine 10 MG TABLET PER TUBE SCH (09:16)
[2021-08-08] MEDS: lisinopriL 20 MG TABLET PER TUBE SCH (09:16)
[2021-08-08] MEDS: ASPIRIN CHEW 81 MG TABLET PO SCH (09:16)
[2021-08-08] MEDS: hydrALAZINE 25 MG TABLET PO SCH ×2 (09:16→21:17)
[2021-08-08] MEDS: INSULIN REGULAR 100 UNIT/ML SUBCUT SCH ×2 (09:17→21:17)
[2021-08-08] MEDS: levETIRAcetam LIQUID 100 MG/ML 30 ML/BOTTLE PO SCH ×2 (09:17→21:18)
[2021-08-08] MEDS: DEXTROSE 5% 1,000 ML IV SCH (12:06)
[2021-08-09 05:39] LABS: Calcium 8.4 MG/DL (8.5-10.1); Potassium 4.9 MMOL/L (3.5-5.1)
[2021-08-09] MEDS: hydrALAZINE 20 MG/1 ML VIAL IV PRN (05:39)
[2021-08-09] MEDS: PIPERACILLIN/TAZOBACTAM 3,375 MG in SODIUM CHLORIDE 0.9% 100 ML IV SCH ×3 (05:45→20:20)
[2021-08-09] MEDS: ACETAMINOPHEN 325 MG TABLET PO PRN (05:55)
[2021-08-09] MEDS: DEXTROSE 5% 1,000 ML IV SCH ×2 (06:08→21:00)
[2021-08-09 07:01] LABS: Basophils # 0.1 10*3/uL (0.0-0.2); Basophils % 0.5 % (0.0-0.8); Eosinophils # 0.2 10*3/uL (0.0-0.87); Eosinophils % 2.2 % (0.00-10.9); Hematocrit 31.5 VOL% (42.0-52.0); Hemoglobin 9.5 GM/DL (14.0-18.0); Immature Granulocytes % 3.4 %; Immature Granulocytes Absolute 0.32 #; Lymphocytes # 0.9 10*3/uL (1.4-4.0); Lymphocytes % 9.8 % (21.2-54.2); Mean Corpuscular HGB Conc 30.2 GM/DL (32-36); Mean Corpuscular Volume 83.1 FL (87-102); Mean Platelet Volume 10.6 FL (9.6-12.0); Monocytes # 0.7 10*3/uL (0.11-0.8); Monocytes % 7.8 % (1.7-12.7); NRBC # 0.03 10*3/uL; Neutrophils % 76.3 % (38.7-73.9); Platelet Count 239 T/CUMM (130-400); Red Blood Count 3.79 MC/CUMM (3.8-5.5); Red Cell Distribution Width 17.4 % (9.3-17.3); White Blood Count 9.4 T/CUMM (4-12)
[2021-08-09 07:33] LABS: Band Neutrophils 1 % (0-10); Eosinophils 3 % (0-10); Hypochromia 1+; Lymphocytes 9 % (20-55); Microcytosis 1+; Platelet Estimate Adequate; Total Cells Counted 100
[2021-08-09] MEDS: LINEZOLID INJ 600 MG/300 ML PREMIX IV SCH ×2 (10:45→21:00)
[2021-08-09] MEDS: chlorproMAZINE 25 MG TABLET PO SCH ×2 (10:46→20:20)
[2021-08-09] MEDS: ASPIRIN CHEW 81 MG TABLET PO SCH (10:46)
[2021-08-09] MEDS: lisinopriL 20 MG TABLET PER TUBE SCH (10:47)
[2021-08-09] MEDS: hydrALAZINE 25 MG TABLET PO SCH ×2 (10:47→20:20)
[2021-08-09] MEDS: ENOXAPARIN 40 MG/0.4 ML SYRINGE SUBCUT SCH (10:47)
[2021-08-09] MEDS: amLODIPine 10 MG TABLET PER TUBE SCH (10:47)
[2021-08-09] MEDS: METOPROLOL TARTRATE 100 MG TABLET PER TUBE SCH ×2 (10:47→20:20)
[2021-08-09] MEDS: FAMOTIDINE 8 MG/ML 50 ML/BOTTLE PEG SCH ×2 (10:50→20:20)
[2021-08-09] MEDS: levETIRAcetam LIQUID 100 MG/ML 30 ML/BOTTLE PO SCH ×2 (10:50→20:20)
[2021-08-09] MEDS: INSULIN REGULAR 100 UNIT/ML SUBCUT SCH ×2 (12:46→21:50)
[2021-08-10] MEDS: PIPERACILLIN/TAZOBACTAM 3,375 MG in SODIUM CHLORIDE 0.9% 100 ML IV SCH ×3 (04:00→22:37)
[2021-08-10 05:07] LABS: Basophils # 0.1 10*3/uL (0.0-0.2); Basophils % 0.6 % (0.0-0.8); Eosinophils # 0.4 10*3/uL (0.0-0.87); Eosinophils % 4.3 % (0.00-10.9); Hematocrit 28.6 VOL% (42.0-52.0); Hemoglobin 8.5 GM/DL (14.0-18.0); Immature Granulocytes % 5.4 %; Immature Granulocytes Absolute 0.55 #; Lymphocytes # 1.4 10*3/uL (1.4-4.0); Mean Corpuscular HGB Conc 29.7 GM/DL (32-36); Mean Corpuscular Volume 83.9 FL (87-102); Mean Platelet Volume 10.4 FL (9.6-12.0); Monocytes # 0.8 10*3/uL (0.11-0.8); NRBC # 0.03 10*3/uL; Neutrophils % 67.7 % (38.7-73.9); Platelet Count 234 T/CUMM (130-400); Red Blood Count 3.41 MC/CUMM (3.8-5.5); Red Cell Distribution Width 17.5 % (9.3-17.3); White Blood Count 10.1 T/CUMM (4-12)
[2021-08-10 05:35] LABS: Calcium 8.8 MG/DL (8.5-10.1); Osmolality,Calculated 290.3 MOS/KG (273-304); Potassium 4.1 MMOL/L (3.5-5.1)
[2021-08-10 05:42] LABS: Band Neutrophils 1 % (0-10); Eosinophils 1 % (0-10); Lymphocytes 9 % (20-55); Nucleated Red Blood Cells 1 (0-5); Total Cells Counted 100
[2021-08-10 05:43] LABS: Hypochromia 1+; Microcytosis 1+; Platelet Estimate Adequate
[2021-08-10] MEDS: INSULIN REGULAR 100 UNIT/ML SUBCUT SCH ×2 (09:11→21:09)
[2021-08-10] MEDS: LINEZOLID INJ 600 MG/300 ML PREMIX IV SCH ×2 (09:11→21:11)
[2021-08-10] MEDS: chlorproMAZINE 25 MG TABLET PO SCH ×2 (10:28→21:08)
[2021-08-10] MEDS: amLODIPine 10 MG TABLET PER TUBE SCH (10:28)
[2021-08-10] MEDS: hydrALAZINE 25 MG TABLET PO SCH ×2 (10:28→21:08)
[2021-08-10] MEDS: lisinopriL 20 MG TABLET PER TUBE SCH (10:28)
[2021-08-10] MEDS: METOPROLOL TARTRATE 100 MG TABLET PER TUBE SCH ×2 (10:28→21:08)
[2021-08-10] MEDS: ASPIRIN CHEW 81 MG TABLET PO SCH (10:28)
[2021-08-10] MEDS: ENOXAPARIN 40 MG/0.4 ML SYRINGE SUBCUT SCH (10:28)
[2021-08-10] MEDS: levETIRAcetam LIQUID 100 MG/ML 30 ML/BOTTLE PO SCH ×2 (10:29→21:10)
[2021-08-10] MEDS: FAMOTIDINE 8 MG/ML 50 ML/BOTTLE PEG SCH ×2 (10:30→21:09)
[2021-08-10] MEDS: DEXTROSE 5% 1,000 ML IV SCH (11:44)
[2021-08-11 05:21] LABS: Basophils # 0.1 10*3/uL (0.0-0.2); Basophils % 0.5 % (0.0-0.8); Eosinophils # 0.4 10*3/uL (0.0-0.87); Eosinophils % 3.5 % (0.00-10.9); Hematocrit 29.3 VOL% (42.0-52.0); Hemoglobin 8.5 GM/DL (14.0-18.0); Immature Granulocytes % 6.9 %; Immature Granulocytes Absolute 0.79 #; Lymphocytes # 1.1 10*3/uL (1.4-4.0); Lymphocytes % 9.6 % (21.2-54.2); Mean Corpuscular Volume 83.5 FL (87-102); Mean Platelet Volume 11.2 FL (9.6-12.0); Monocytes # 1.1 10*3/uL (0.11-0.8); Monocytes % 9.6 % (1.7-12.7); NRBC # 0.03 10*3/uL; Neutrophils % 69.9 % (38.7-73.9); Platelet Count 230 T/CUMM (130-400); Red Blood Count 3.51 MC/CUMM (3.8-5.5); Red Cell Distribution Width 17.3 % (9.3-17.3); White Blood Count 11.5 T/CUMM (4-12)
[2021-08-11] MEDS: PIPERACILLIN/TAZOBACTAM 3,375 MG in SODIUM CHLORIDE 0.9% 100 ML IV SCH ×3 (05:26→22:27)
[2021-08-11 05:40] LABS: Calcium 8.9 MG/DL (8.5-10.1); Osmolality,Calculated 284.5 MOS/KG (273-304); Potassium 4.3 MMOL/L (3.5-5.1)
[2021-08-11 05:44] LABS: Band Neutrophils 2 % (0-10); Eosinophils 6 % (0-10); Lymphocytes 11 % (20-55); Metamyelocytes 1 %; Myelocytes 1 %; Nucleated Red Blood Cells 1 (0-5); Total Cells Counted 100
[2021-08-11 05:45] LABS: Anisocytosis 1+; Hypochromia 1+; Microcytosis 1+
[2021-08-11] MEDS: METOPROLOL TARTRATE 100 MG TABLET PER TUBE SCH ×2 (08:07→21:20)
[2021-08-11] MEDS: ENOXAPARIN 40 MG/0.4 ML SYRINGE SUBCUT SCH (08:07)
[2021-08-11] MEDS: ASPIRIN CHEW 81 MG TABLET PO SCH (08:08)
[2021-08-11] MEDS: chlorproMAZINE 25 MG TABLET PO SCH ×2 (08:08→21:20)
[2021-08-11] MEDS: amLODIPine 10 MG TABLET PER TUBE SCH (08:08)
[2021-08-11] MEDS: hydrALAZINE 25 MG TABLET PO SCH ×3 (08:08→21:20)
[2021-08-11] MEDS: lisinopriL 20 MG TABLET PER TUBE SCH (08:08)
[2021-08-11] MEDS: levETIRAcetam LIQUID 100 MG/ML 30 ML/BOTTLE PO SCH ×2 (08:09→21:20)
[2021-08-11] MEDS: FAMOTIDINE 8 MG/ML 50 ML/BOTTLE PEG SCH ×2 (08:09→21:20)
[2021-08-11] MEDS: INSULIN REGULAR 100 UNIT/ML SUBCUT SCH ×2 (08:32→21:19)
[2021-08-11] MEDS: LINEZOLID INJ 600 MG/300 ML PREMIX IV SCH ×3 (10:08→21:19)
[2021-08-11] MEDS: ZINC OXIDE PASTE 113 GM TUBE TOP SCH ×2 (13:47→21:21)
[2021-08-12] MEDS: PIPERACILLIN/TAZOBACTAM 3,375 MG in SODIUM CHLORIDE 0.9% 100 ML IV SCH ×3 (05:08→22:13)
[2021-08-12] MEDS: ASPIRIN CHEW 81 MG TABLET PO SCH (08:29)
[2021-08-12] MEDS: METOPROLOL TARTRATE 100 MG TABLET PER TUBE SCH ×2 (08:30→20:43)
[2021-08-12] MEDS: FAMOTIDINE 8 MG/ML 50 ML/BOTTLE PEG SCH ×2 (08:30→20:41)
[2021-08-12] MEDS: amLODIPine 10 MG TABLET PER TUBE SCH (08:30)
[2021-08-12] MEDS: hydrALAZINE 25 MG TABLET PO SCH ×3 (08:30→20:43)
[2021-08-12] MEDS: chlorproMAZINE 25 MG TABLET PO SCH ×2 (08:30→20:43)
[2021-08-12] MEDS: lisinopriL 20 MG TABLET PER TUBE SCH (08:30)
[2021-08-12] MEDS: ZINC OXIDE PASTE 113 GM TUBE TOP SCH ×2 (08:31→20:41)
[2021-08-12] MEDS: levETIRAcetam LIQUID 100 MG/ML 30 ML/BOTTLE PO SCH ×2 (08:31→20:43)
[2021-08-12] MEDS: INSULIN REGULAR 100 UNIT/ML SUBCUT SCH ×2 (08:31→21:01)
[2021-08-12] MEDS: ENOXAPARIN 40 MG/0.4 ML SYRINGE SUBCUT SCH (08:32)
[2021-08-12] MEDS: LINEZOLID INJ 600 MG/300 ML PREMIX IV SCH ×2 (08:32→20:41)
[2021-08-13] MEDS: hydrALAZINE 20 MG/1 ML VIAL IV PRN (04:05)
[2021-08-13 05:19] LABS: Basophils # 0.1 10*3/uL (0.0-0.2); Basophils % 0.7 % (0.0-0.8); Eosinophils # 0.2 10*3/uL (0.0-0.87); Eosinophils % 1.4 % (0.00-10.9); Immature Granulocytes % 11.3 %; Immature Granulocytes Absolute 1.38 #; Lymphocytes # 0.9 10*3/uL (1.4-4.0); Lymphocytes % 7.5 % (21.2-54.2); Mean Corpuscular Volume 82.2 FL (87-102); Mean Platelet Volume 11.6 FL (9.6-12.0); Monocytes # 1.2 10*3/uL (0.11-0.8); Monocytes % 9.9 % (1.7-12.7); NRBC # 0.09 10*3/uL; Neutrophils % 69.2 % (38.7-73.9); Platelet Count 277 T/CUMM (130-400); Red Blood Count 3.65 MC/CUMM (3.8-5.5); Red Cell Distribution Width 17.3 % (9.3-17.3); White Blood Count 12.2 T/CUMM (4-12)
[2021-08-13 05:34] LABS: Calcium 8.6 MG/DL (8.5-10.1); Osmolality,Calculated 281.8 MOS/KG (273-304); Potassium 4.1 MMOL/L (3.5-5.1)
[2021-08-13 05:41] LABS: Hypochromia 1+; Lymphocytes 11 % (20-55); Microcytosis 1+; Platelet Estimate Adequate; Total Cells Counted 100
[2021-08-13] MEDS: amLODIPine 10 MG TABLET PER TUBE SCH (09:49)
[2021-08-13] MEDS: lisinopriL 20 MG TABLET PER TUBE SCH (09:49)
[2021-08-13] MEDS: ASPIRIN CHEW 81 MG TABLET PO SCH (09:49)
[2021-08-13] MEDS: METOPROLOL TARTRATE 100 MG TABLET PER TUBE SCH ×2 (09:49→22:27)
[2021-08-13] MEDS: ZINC OXIDE PASTE 113 GM TUBE TOP SCH ×2 (09:49→22:27)
[2021-08-13] MEDS: chlorproMAZINE 25 MG TABLET PO SCH ×2 (09:49→22:26)
[2021-08-13] MEDS: hydrALAZINE 25 MG TABLET PO SCH ×3 (09:49→22:26)
[2021-08-13] MEDS: FAMOTIDINE 8 MG/ML 50 ML/BOTTLE PEG SCH ×2 (09:50→22:26)
[2021-08-13] MEDS: ENOXAPARIN 40 MG/0.4 ML SYRINGE SUBCUT SCH (09:50)
[2021-08-13] MEDS: levETIRAcetam LIQUID 100 MG/ML 30 ML/BOTTLE PO SCH ×2 (09:50→22:26)
[2021-08-13] MEDS: INSULIN GLARGINE 100 UNIT/ML SUBCUT SCH (09:51)
[2021-08-13] MEDS: INSULIN REGULAR 100 UNIT/ML SUBCUT SCH ×2 (09:51→22:27)
[2021-08-13] MEDS: LINEZOLID INJ 600 MG/300 ML PREMIX IV SCH (09:52)
[2021-08-14 06:12] LABS: Basophils # 0.1 10*3/uL (0.0-0.2); Basophils % 0.7 % (0.0-0.8); Eosinophils # 0.3 10*3/uL (0.0-0.87); Eosinophils % 2.7 % (0.00-10.9); Hematocrit 29.8 VOL% (42.0-52.0); Hemoglobin 8.9 GM/DL (14.0-18.0); Immature Granulocytes % 12.6 %; Immature Granulocytes Absolute 1.41 #; Lymphocytes # 1.2 10*3/uL (1.4-4.0); Lymphocytes % 10.3 % (21.2-54.2); Mean Corpuscular HGB Conc 29.9 GM/DL (32-36); Mean Corpuscular Volume 83.2 FL (87-102); Mean Platelet Volume 11.2 FL (9.6-12.0); Monocytes # 1.1 10*3/uL (0.11-0.8); Monocytes % 10.1 % (1.7-12.7); NRBC # 0.06 10*3/uL; Neutrophils % 63.6 % (38.7-73.9); Platelet Count 302 T/CUMM (130-400); Red Blood Count 3.58 MC/CUMM (3.8-5.5); Red Cell Distribution Width 17.6 % (9.3-17.3); White Blood Count 11.2 T/CUMM (4-12)
[2021-08-14 06:30] LABS: Alanine Aminotransferase 323 U/L (16-61); Albumin 1.6 G/DL (3.4-5.0); Alkaline Phosphatase 237 U/L (45-117); Aspartate Amino Transferase 103 U/L (0-37); Bilirubin,Total < 0.39 MG/DL (0.20-1.00); Blood Urea Nitrogen 25 MG/DL (7-18); Calcium 9.2 MG/DL (8.5-10.1); Carbon Dioxide 30 MMOL/L (21-32); Chloride 102 MMOL/L (98-107); Estimated Glom Filtration Rate 149 ML/MIN; Glucose 160 MG/DL (74-106); Potassium 4.5 MMOL/L (3.5-5.1); Sodium 136 MMOL/L (136-145); Total Protein 7.2 G/DL (6.4-8.2)
[2021-08-14 06:39] LABS: Band Neutrophils 5 % (0-10); Eosinophils 4 % (0-10); Lymphocytes 14 % (20-55); Myelocytes 2 %; Nucleated Red Blood Cells 1 (0-5)
[2021-08-14 06:40] LABS: Hypochromia Slight; Microcytosis Slight; Platelet Estimate Normal; Total Cells Counted 100
[2021-08-14 09:11] LABS: Bilirubin,Direct < 0.100 MG/DL (0.0-0.20); Bilirubin,Indirect 0.3 MG/DL (0.0-1.0); Bilirubin,Total < 0.39 MG/DL (0.20-1.00)
[2021-08-14] MEDS: INSULIN GLARGINE 100 UNIT/ML SUBCUT SCH (09:18)
[2021-08-14] MEDS: ZINC OXIDE PASTE 113 GM TUBE TOP SCH ×2 (09:19→21:37)
[2021-08-14] MEDS: FAMOTIDINE 8 MG/ML 50 ML/BOTTLE PEG SCH ×2 (09:19→21:38)
[2021-08-14] MEDS: INSULIN REGULAR 100 UNIT/ML SUBCUT SCH ×2 (09:19→21:36)
[2021-08-14] MEDS: amLODIPine 10 MG TABLET PER TUBE SCH (09:20)
[2021-08-14] MEDS: hydrALAZINE 25 MG TABLET PO SCH ×3 (09:20→21:37)
[2021-08-14] MEDS: chlorproMAZINE 25 MG TABLET PO SCH ×2 (09:20→21:37)
[2021-08-14] MEDS: METOPROLOL TARTRATE 100 MG TABLET PER TUBE SCH ×2 (09:20→21:37)
[2021-08-14] MEDS: levETIRAcetam LIQUID 100 MG/ML 30 ML/BOTTLE PO SCH ×2 (09:20→21:38)
[2021-08-14] MEDS: ASPIRIN CHEW 81 MG TABLET PO SCH (09:20)
[2021-08-14] MEDS: lisinopriL 20 MG TABLET PER TUBE SCH (09:20)
[2021-08-14] MEDS: ENOXAPARIN 40 MG/0.4 ML SYRINGE SUBCUT SCH (09:21)
[2021-08-14 09:30] LABS: Hepatitis B Core IgM Quant 0.08 Index; Hepatitis B Surface Ag Quant < 0.10 Index; Hepatitis B Surface Ag Result Non-Reactive (NonReactive); Hepatitis C Virus Ab Quant 0.27 Index; Hepatitis C Virus Ab Result Non-Reactive (NonReactive)
[2021-08-15] MEDS: chlorproMAZINE 25 MG TABLET PO SCH ×2 (09:43→21:55)
[2021-08-15] MEDS: lisinopriL 20 MG TABLET PER TUBE SCH (09:43)
[2021-08-15] MEDS: amLODIPine 10 MG TABLET PER TUBE SCH (09:43)
[2021-08-15] MEDS: hydrALAZINE 25 MG TABLET PO SCH ×3 (09:43→21:55)
[2021-08-15] MEDS: METOPROLOL TARTRATE 100 MG TABLET PER TUBE SCH ×2 (09:43→21:55)
[2021-08-15] MEDS: ASPIRIN CHEW 81 MG TABLET PO SCH (09:43)
[2021-08-15] MEDS: INSULIN GLARGINE 100 UNIT/ML SUBCUT SCH (09:44)
[2021-08-15] MEDS: INSULIN REGULAR 100 UNIT/ML SUBCUT SCH ×2 (09:44→21:55)
[2021-08-15] MEDS: FAMOTIDINE 8 MG/ML 50 ML/BOTTLE PEG SCH ×2 (09:44→21:57)
[2021-08-15] MEDS: ENOXAPARIN 40 MG/0.4 ML SYRINGE SUBCUT SCH (09:44)
[2021-08-15] MEDS: ZINC OXIDE PASTE 113 GM TUBE TOP SCH ×2 (09:44→21:57)
[2021-08-15] MEDS: levETIRAcetam LIQUID 100 MG/ML 30 ML/BOTTLE PO SCH ×2 (09:45→21:58)
[2021-08-16 05:26] LABS: Calcium 8.7 MG/DL (8.5-10.1); Osmolality,Calculated 282.8 MOS/KG (273-304); Potassium 4.5 MMOL/L (3.5-5.1)
[2021-08-16] MEDS: INSULIN REGULAR 100 UNIT/ML SUBCUT SCH (09:51)
[2021-08-16] MEDS: INSULIN GLARGINE 100 UNIT/ML SUBCUT SCH (09:51)
[2021-08-16] MEDS: chlorproMAZINE 25 MG TABLET PO SCH (09:51)
[2021-08-16] MEDS: lisinopriL 20 MG TABLET PER TUBE SCH (09:51)
[2021-08-16] MEDS: ASPIRIN CHEW 81 MG TABLET PO SCH (09:51)
[2021-08-16] MEDS: levETIRAcetam LIQUID 100 MG/ML 30 ML/BOTTLE PO SCH (09:52)
[2021-08-16] MEDS: METOPROLOL TARTRATE 100 MG TABLET PER TUBE SCH (09:52)
[2021-08-16] MEDS: amLODIPine 10 MG TABLET PER TUBE SCH (09:52)
[2021-08-16] MEDS: ENOXAPARIN 40 MG/0.4 ML SYRINGE SUBCUT SCH (09:52)
[2021-08-16] MEDS: FAMOTIDINE 8 MG/ML 50 ML/BOTTLE PEG SCH (09:52)
[2021-08-16] MEDS: hydrALAZINE 25 MG TABLET PO SCH (09:52)
[2021-08-16] MEDS: ZINC OXIDE PASTE 113 GM TUBE TOP SCH (09:52)
[2021-08-16 11:44] VITALS: BP 160/103
== END 2021-08-16 13:40 | disposition hospice, home (50) | DRG 4 ==
LOC: SUATTDRO → N.ED 13:20 → SUATTDRO 15:40 → N.ICU 15:40 → N.3E 08-04 17:58
PROVIDERS: ADMIT Internal Medicine; ATTEND Hospitalist
PROC: EGDWPEG (ICD-10-PCS; 2021-07-21 07:35)

== ENCOUNTER 2021-08-18 13:17 | Inpatient (IN) ==
[2021-08-18 14:23] LABS: Basophils # 0.1 10*3/uL (0.0-0.2); Basophils % 0.6 % (0.0-0.8); Eosinophils # 0.1 10*3/uL (0.0-0.87); Eosinophils % 0.8 % (0.00-10.9); Hematocrit 31.1 VOL% (42.0-52.0); Hemoglobin 9.4 GM/DL (14.0-18.0); Immature Granulocytes % 3.8 %; Immature Granulocytes Absolute 0.68 #; Lymphocytes # 1.5 10*3/uL (1.4-4.0); Lymphocytes % 8.5 % (21.2-54.2); Mean Corpuscular HGB Conc 30.2 GM/DL (32-36); Mean Corpuscular Volume 83.4 FL (87-102); Mean Platelet Volume 9.8 FL (9.6-12.0); Monocytes # 1.2 10*3/uL (0.11-0.8); Monocytes % 6.8 % (1.7-12.7); NRBC # 0.03 10*3/uL; Neutrophils % 79.5 % (38.7-73.9); Platelet Count 474 T/CUMM (130-400); Red Blood Count 3.73 MC/CUMM (3.8-5.5); Red Cell Distribution Width 18.5 % (9.3-17.3); White Blood Count 17.8 T/CUMM (4-12)
[2021-08-18 14:42] LABS: Eosinophils 2 % (0-10); Lymphocytes 12 % (20-55); Total Cells Counted 100
[2021-08-18 14:43] LABS: Anisocytosis 1+; Macrocytosis Slight; Microcytosis Slight; Platelet Estimate Increased
[2021-08-18 14:44] LABS: Hypochromia 1+; Polychromasia 1+
[2021-08-18 14:57] LABS: Alanine Aminotransferase 190 U/L (16-61); Albumin 1.8 G/DL (3.4-5.0); Alkaline Phosphatase 174 U/L (45-117); Aspartate Amino Transferase 53 U/L (0-37); Bilirubin,Total < 0.39 MG/DL (0.20-1.00); Blood Urea Nitrogen 21 MG/DL (7-18); Calcium 9.1 MG/DL (8.5-10.1); Carbon Dioxide 26 MMOL/L (21-32); Chloride 100 MMOL/L (98-107); Estimated Glom Filtration Rate 149 ML/MIN; Glucose 138 MG/DL (74-106); Osmolality,Calculated 270.4 MOS/KG (273-304); Potassium 3.8 MMOL/L (3.5-5.1); Sodium 133 MMOL/L (136-145); Total Protein 7.5 G/DL (6.4-8.2)
[2021-08-18] MEDS ORDERED: PIPERACILLIN/TAZOBACTAM 3,375 MG in SODIUM CHLORIDE 0.9% 100 ML IV STA (14:57)
[2021-08-18] MEDS ORDERED: methylPREDNISolone SOD SUC 125 MG/2 ML VIAL IV STA (15:19)
[2021-08-18 18:03] LABS: PT Patient Result 11.5 SECS (10.5-12.0); Partial Thromboplastin Time 25.9 SECS (23.8-32.1)
[2021-08-18] MEDS: DEXTROSE 5% NACL 0.45% 1,000 ML IV SCH (18:16)
[2021-08-18] MEDS: hydrALAZINE 25 MG TABLET PO SCH ×2 (18:38→23:56)
[2021-08-18] MEDS ORDERED: GLUCAGON 1 MG VIAL IM PRN (23:58)
[2021-08-19] MEDS ORDERED: DEXTROSE 10% 250 ML BAG IV PRN
[2021-08-19] MEDS ORDERED: METOPROLOL TARTRATE 100 MG TABLET PER TUBE ONE (00:03)
[2021-08-19] MEDS: INSULIN REGULAR 100 UNIT/ML SUBCUT SCH ×4 (00:16→18:00)
[2021-08-19] MEDS: PIPERACILLIN/TAZOBACTAM 3,375 MG in SODIUM CHLORIDE 0.9% 100 ML IV SCH ×3 (00:16→17:38)
[2021-08-19] MEDS: hydrALAZINE 20 MG/1 ML VIAL IV PRN ×2 (00:16→19:41)
[2021-08-19] MEDS: DEXTROSE 5% NACL 0.45% 1,000 ML IV SCH (00:18)
[2021-08-19 05:20] LABS: Basophils % 0.2 % (0.0-0.8); Hematocrit 32.1 VOL% (42.0-52.0); Immature Granulocytes % 2.5 %; Immature Granulocytes Absolute 0.51 #; Lymphocytes # 0.9 10*3/uL (1.4-4.0); Lymphocytes % 4.5 % (21.2-54.2); Mean Corpuscular HGB Conc 31.2 GM/DL (32-36); Mean Corpuscular Volume 81.5 FL (87-102); Mean Platelet Volume 9.8 FL (9.6-12.0); Monocytes % 4.8 % (1.7-12.7); Platelet Count 510 T/CUMM (130-400); Red Blood Count 3.94 MC/CUMM (3.8-5.5); Red Cell Distribution Width 18.5 % (9.3-17.3)
[2021-08-19 05:38] LABS: Alanine Aminotransferase 164 U/L (16-61); Albumin 1.9 G/DL (3.4-5.0); Alkaline Phosphatase 141 U/L (45-117); Aspartate Amino Transferase 37 U/L (0-37); Bilirubin,Total < 0.39 MG/DL (0.20-1.00); Blood Urea Nitrogen 23 MG/DL (7-18); Carbon Dioxide 25 MMOL/L (21-32); Chloride 102 MMOL/L (98-107); Estimated Glom Filtration Rate 132 ML/MIN; Glucose 188 MG/DL (74-106); Osmolality,Calculated 278.1 MOS/KG (273-304); Phosphorous 3.2 MG/DL (2.5-4.9); Potassium 3.8 MMOL/L (3.5-5.1); Sodium 135 MMOL/L (136-145); Total Protein 7.7 G/DL (6.4-8.2)
[2021-08-19 06:08] LABS: Anisocytosis 1+; Band Neutrophils 2 % (0-10); Lymphocytes 7 % (20-55); Platelet Estimate Increased; Total Cells Counted 100
[2021-08-19] MEDS: OMEPRAZOLE ODT 20 MG TABLET PO SCH (06:23)
[2021-08-19] MEDS ORDERED: hydrALAZINE 25 MG TABLET PEG SCH (09:00)
[2021-08-19] MEDS ORDERED: ASPIRIN CHEW 81 MG TABLET PO SCH (09:00)
[2021-08-19] MEDS: amLODIPine 10 MG TABLET PER TUBE SCH (09:15)
[2021-08-19] MEDS: METOPROLOL TARTRATE 100 MG TABLET PER TUBE SCH ×2 (09:16→22:26)
[2021-08-19] MEDS: FERROUS SULFATE 300 MG/5 ML UDCUP PER TUBE SCH ×2 (09:17→22:23)
[2021-08-19] MEDS: INSULIN GLARGINE 100 UNIT/ML SUBCUT SCH (09:17)
[2021-08-19] MEDS: levETIRAcetam LIQUID 100 MG/ML 30 ML/BOTTLE PEG SCH ×2 (11:28→22:26)
[2021-08-19] MEDS: MENTHOL/ZINC OXIDE OINT 71 GM JAR TOP SCH ×2 (16:04→22:26)
[2021-08-19] MEDS ORDERED: cloNIDine 0.1 MG TABLET PO SCH (21:00)
[2021-08-19] MEDS ORDERED: cloNIDine 0.1 MG TABLET PEG SCH (21:00)
[2021-08-19] MEDS ORDERED: cloNIDine 0.1 MG TABLET PEG ONE (21:42)
[2021-08-19] MEDS: AZITHROMYCIN INJ 500 MG in SODIUM CHLORIDE 0.9% 250 ML IV SCH (22:18)
[2021-08-19] MEDS: methylPREDNISolone SOD SUC 40 MG/1 ML VIAL IV SCH (22:21)
[2021-08-19] MEDS: SCOPOLAMINE 1.5 MG PATCH TRANSDERM SCH (22:24)
[2021-08-20] MEDS: INSULIN REGULAR 100 UNIT/ML SUBCUT SCH ×4 (00:03→19:20)
[2021-08-20] MEDS: DEXTROSE 5% NACL 0.45% 1,000 ML IV SCH ×2 (00:04→23:15)
[2021-08-20] MEDS: PIPERACILLIN/TAZOBACTAM 3,375 MG in SODIUM CHLORIDE 0.9% 100 ML IV SCH ×3 (00:47→19:09)
[2021-08-20 05:21] LABS: Basophils # 0.1 10*3/uL (0.0-0.2); Basophils % 0.3 % (0.0-0.8); Eosinophils % 0.1 % (0.00-10.9); Hematocrit 32.5 VOL% (42.0-52.0); Hemoglobin 9.8 GM/DL (14.0-18.0); Immature Granulocytes % 1.4 %; Immature Granulocytes Absolute 0.24 #; Lymphocytes # 0.9 10*3/uL (1.4-4.0); Lymphocytes % 5.3 % (21.2-54.2); Mean Corpuscular HGB Conc 30.2 GM/DL (32-36); Mean Corpuscular Volume 83.1 FL (87-102); Mean Platelet Volume 9.9 FL (9.6-12.0); Monocytes # 0.8 10*3/uL (0.11-0.8); Monocytes % 4.5 % (1.7-12.7); Neutrophils % 88.4 % (38.7-73.9); Platelet Count 490 T/CUMM (130-400); Red Blood Count 3.91 MC/CUMM (3.8-5.5); Red Cell Distribution Width 18.9 % (9.3-17.3); White Blood Count 17.1 T/CUMM (4-12)
[2021-08-20 05:45] LABS: Calcium 8.5 MG/DL (8.5-10.1); Osmolality,Calculated 279.8 MOS/KG (273-304)
[2021-08-20] MEDS: methylPREDNISolone SOD SUC 40 MG/1 ML VIAL IV SCH ×3 (05:45→21:28)
[2021-08-20] MEDS: OMEPRAZOLE ODT 20 MG TABLET PO SCH (05:48)
[2021-08-20] MEDS: levETIRAcetam LIQUID 100 MG/ML 30 ML/BOTTLE PEG SCH ×2 (09:31→21:29)
[2021-08-20] MEDS: INSULIN GLARGINE 100 UNIT/ML SUBCUT SCH (09:31)
[2021-08-20] MEDS: FERROUS SULFATE 300 MG/5 ML UDCUP PER TUBE SCH ×2 (09:31→21:28)
[2021-08-20] MEDS: METOPROLOL TARTRATE 100 MG TABLET PER TUBE SCH ×2 (09:31→21:28)
[2021-08-20] MEDS: MENTHOL/ZINC OXIDE OINT 71 GM JAR TOP SCH ×2 (09:31→21:29)
[2021-08-20] MEDS: amLODIPine 10 MG TABLET PER TUBE SCH (09:31)
[2021-08-20] MEDS: AZITHROMYCIN INJ 500 MG in SODIUM CHLORIDE 0.9% 250 ML IV SCH (23:12)
[2021-08-21] MEDS: INSULIN REGULAR 100 UNIT/ML SUBCUT SCH ×4 (00:59→18:40)
[2021-08-21] MEDS: PIPERACILLIN/TAZOBACTAM 3,375 MG in SODIUM CHLORIDE 0.9% 100 ML IV SCH ×3 (01:18→18:00)
[2021-08-21 05:28] LABS: Basophils % 0.1 % (0.0-0.8); Hematocrit 25.6 VOL% (42.0-52.0); Hemoglobin 7.9 GM/DL (14.0-18.0); Immature Granulocytes % 1.4 %; Immature Granulocytes Absolute 0.23 #; Lymphocytes # 0.9 10*3/uL (1.4-4.0); Lymphocytes % 5.6 % (21.2-54.2); Mean Corpuscular HGB Conc 30.9 GM/DL (32-36); Mean Corpuscular Volume 81.8 FL (87-102); Mean Platelet Volume 10.2 FL (9.6-12.0); Monocytes # 0.9 10*3/uL (0.11-0.8); Monocytes % 5.5 % (1.7-12.7); Neutrophils % 87.4 % (38.7-73.9); Platelet Count 407 T/CUMM (130-400); Red Blood Count 3.13 MC/CUMM (3.8-5.5); Red Cell Distribution Width 18.7 % (9.3-17.3); White Blood Count 16.2 T/CUMM (4-12)
[2021-08-21] MEDS: methylPREDNISolone SOD SUC 40 MG/1 ML VIAL IV SCH ×3 (06:06→22:48)
[2021-08-21] MEDS: OMEPRAZOLE ODT 20 MG TABLET PO SCH (06:10)
[2021-08-21] MEDS: MENTHOL/ZINC OXIDE OINT 71 GM JAR TOP SCH ×2 (10:02→22:46)
[2021-08-21] MEDS: FERROUS SULFATE 300 MG/5 ML UDCUP PER TUBE SCH ×2 (10:02→22:47)
[2021-08-21] MEDS: amLODIPine 10 MG TABLET PER TUBE SCH (10:03)
[2021-08-21] MEDS: INSULIN GLARGINE 100 UNIT/ML SUBCUT SCH (10:03)
[2021-08-21] MEDS: METOPROLOL TARTRATE 100 MG TABLET PER TUBE SCH ×2 (10:04→22:46)
[2021-08-21] MEDS: levETIRAcetam LIQUID 100 MG/ML 30 ML/BOTTLE PEG SCH ×2 (10:09→22:56)
[2021-08-21] MEDS: DEXTROSE 5% NACL 0.45% 1,000 ML IV SCH (18:01)
[2021-08-21] MEDS: AZITHROMYCIN INJ 500 MG in SODIUM CHLORIDE 0.9% 250 ML IV SCH (22:47)
[2021-08-22] MEDS: INSULIN REGULAR 100 UNIT/ML SUBCUT SCH ×4 (00:59→18:21)
[2021-08-22] MEDS: PIPERACILLIN/TAZOBACTAM 3,375 MG in SODIUM CHLORIDE 0.9% 100 ML IV SCH ×3 (00:59→16:46)
[2021-08-22] MEDS: OMEPRAZOLE ODT 20 MG TABLET PO SCH (06:34)
[2021-08-22] MEDS: methylPREDNISolone SOD SUC 40 MG/1 ML VIAL IV SCH ×3 (06:34→22:06)
[2021-08-22] MEDS: DEXTROSE 5% NACL 0.45% 1,000 ML IV SCH (07:31)
[2021-08-22] MEDS: MENTHOL/ZINC OXIDE OINT 71 GM JAR TOP SCH ×2 (09:55→22:07)
[2021-08-22] MEDS: INSULIN GLARGINE 100 UNIT/ML SUBCUT SCH (09:55)
[2021-08-22] MEDS: levETIRAcetam LIQUID 100 MG/ML 30 ML/BOTTLE PEG SCH ×2 (09:55→22:06)
[2021-08-22] MEDS: FERROUS SULFATE 300 MG/5 ML UDCUP PER TUBE SCH ×2 (09:55→22:06)
[2021-08-22] MEDS: METOPROLOL TARTRATE 100 MG TABLET PER TUBE SCH ×2 (10:24→22:05)
[2021-08-22] MEDS: SCOPOLAMINE 1.5 MG PATCH TRANSDERM SCH (10:24)
[2021-08-22] MEDS: amLODIPine 10 MG TABLET PER TUBE SCH (10:24)
[2021-08-22] MEDS: AZITHROMYCIN INJ 500 MG in SODIUM CHLORIDE 0.9% 250 ML IV SCH (22:06)
[2021-08-23] MEDS: PIPERACILLIN/TAZOBACTAM 3,375 MG in SODIUM CHLORIDE 0.9% 100 ML IV SCH ×3 (02:59→16:15)
[2021-08-23] MEDS: INSULIN REGULAR 100 UNIT/ML SUBCUT SCH ×4 (03:17→19:30)
[2021-08-23] MEDS: DEXTROSE 5% NACL 0.45% 1,000 ML IV SCH (05:31)
[2021-08-23 06:14] LABS: Basophils # 0.1 10*3/uL (0.0-0.2); Basophils % 0.3 % (0.0-0.8); Hematocrit 26.2 VOL% (42.0-52.0); Immature Granulocytes % 4.9 %; Immature Granulocytes Absolute 0.89 #; Lymphocytes # 1.6 10*3/uL (1.4-4.0); Lymphocytes % 8.8 % (21.2-54.2); Mean Corpuscular HGB Conc 30.5 GM/DL (32-36); Mean Corpuscular Volume 83.2 FL (87-102); Mean Platelet Volume 9.8 FL (9.6-12.0); Monocytes # 1.3 10*3/uL (0.11-0.8); Monocytes % 7.4 % (1.7-12.7); NRBC # 0.31 10*3/uL; Neutrophils % 78.6 % (38.7-73.9); Platelet Count 412 T/CUMM (130-400); Red Blood Count 3.15 MC/CUMM (3.8-5.5); Red Cell Distribution Width 18.9 % (9.3-17.3)
[2021-08-23] MEDS: methylPREDNISolone SOD SUC 40 MG/1 ML VIAL IV SCH ×3 (06:20→20:09)
[2021-08-23] MEDS: OMEPRAZOLE ODT 20 MG TABLET PO SCH (06:21)
[2021-08-23 06:33] LABS: Calcium 8.5 MG/DL (8.5-10.1); Osmolality,Calculated 284.5 MOS/KG (273-304)
[2021-08-23 08:47] LABS: Band Neutrophils 1 % (0-10); Hypochromia 1+; Lymphocytes 12 % (20-55); Myelocytes 1 %; Nucleated Red Blood Cells 1 (0-5); Total Cells Counted 100
[2021-08-23 08:48] LABS: Microcytosis 1+; Ovalocytes Slight
[2021-08-23 08:49] LABS: Platelet Estimate Increased
[2021-08-23] MEDS: METOPROLOL TARTRATE 100 MG TABLET PER TUBE SCH ×2 (08:59→20:08)
[2021-08-23] MEDS: FERROUS SULFATE 300 MG/5 ML UDCUP PER TUBE SCH ×2 (08:59→20:08)
[2021-08-23] MEDS: amLODIPine 10 MG TABLET PER TUBE SCH (09:00)
[2021-08-23] MEDS: levETIRAcetam LIQUID 100 MG/ML 30 ML/BOTTLE PEG SCH ×2 (09:03→20:09)
[2021-08-23] MEDS: INSULIN GLARGINE 100 UNIT/ML SUBCUT SCH (09:57)
[2021-08-23] MEDS: MENTHOL/ZINC OXIDE OINT 71 GM JAR TOP SCH ×2 (16:06→20:09)
[2021-08-23] MEDS ORDERED: FUROSEMIDE 40 MG/4 ML VIAL IV ONE (16:35)
[2021-08-23] MEDS ORDERED: SCOPOLAMINE 1.5 MG PATCH TRANSDERM ONE (16:37)
[2021-08-23] MEDS: AZITHROMYCIN INJ 500 MG in SODIUM CHLORIDE 0.9% 250 ML IV SCH (22:55)
[2021-08-24] MEDS: PIPERACILLIN/TAZOBACTAM 3,375 MG in SODIUM CHLORIDE 0.9% 100 ML IV SCH ×3 (01:46→16:51)
[2021-08-24] MEDS: INSULIN REGULAR 100 UNIT/ML SUBCUT SCH ×4 (01:47→17:45)
[2021-08-24] MEDS: OMEPRAZOLE ODT 20 MG TABLET PO SCH (06:08)
[2021-08-24] MEDS: methylPREDNISolone SOD SUC 40 MG/1 ML VIAL IV SCH ×3 (06:09→20:54)
[2021-08-24 06:43] LABS: Basophils # 0.1 10*3/uL (0.0-0.2); Basophils % 0.4 % (0.0-0.8); Hematocrit 32.9 VOL% (42.0-52.0); Hemoglobin 10.1 GM/DL (14.0-18.0); Immature Granulocytes % 5.3 %; Immature Granulocytes Absolute 0.96 #; Lymphocytes # 1.7 10*3/uL (1.4-4.0); Lymphocytes % 9.4 % (21.2-54.2); Mean Corpuscular HGB Conc 30.7 GM/DL (32-36); Mean Platelet Volume 9.6 FL (9.6-12.0); Monocytes # 1.3 10*3/uL (0.11-0.8); Monocytes % 7.4 % (1.7-12.7); NRBC # 0.84 10*3/uL; Neutrophils % 77.5 % (38.7-73.9); Platelet Count 488 T/CUMM (130-400); Red Blood Count 4.01 MC/CUMM (3.8-5.5); Red Cell Distribution Width 19.9 % (9.3-17.3)
[2021-08-24 07:08] LABS: Anisocytosis 1+; Band Neutrophils 3 % (0-10); Lymphocytes 7 % (20-55); Metamyelocytes 3 %; Myelocytes 3 %; Nucleated Red Blood Cells 15 (0-5); Platelet Estimate Normal; Polychromasia Slight; Total Cells Counted 100
[2021-08-24 07:12] LABS: Hypersegmented Neutrophil Few
[2021-08-24 07:18] LABS: Calcium 8.9 MG/DL (8.5-10.1); Osmolality,Calculated 279.8 MOS/KG (273-304); Potassium 3.4 MMOL/L (3.5-5.1)
[2021-08-24] MEDS: INSULIN GLARGINE 100 UNIT/ML SUBCUT SCH (09:15)
[2021-08-24] MEDS: POTASSIUM BICARB EFFERVESCENT 20 MEQ TAB.EFF PEG SCH ×2 (09:25→20:55)
[2021-08-24] MEDS: amLODIPine 10 MG TABLET PER TUBE SCH (09:25)
[2021-08-24] MEDS: FERROUS SULFATE 300 MG/5 ML UDCUP PER TUBE SCH ×2 (09:25→20:54)
[2021-08-24] MEDS: levETIRAcetam LIQUID 100 MG/ML 30 ML/BOTTLE PEG SCH ×2 (09:25→20:56)
[2021-08-24] MEDS: METOPROLOL TARTRATE 100 MG TABLET PER TUBE SCH ×2 (09:25→20:55)
[2021-08-24] MEDS: MENTHOL/ZINC OXIDE OINT 71 GM JAR TOP SCH ×2 (09:25→20:49)
[2021-08-24] MEDS: hydrALAZINE 20 MG/1 ML VIAL IV PRN (20:54)
[2021-08-25] MEDS: PIPERACILLIN/TAZOBACTAM 3,375 MG in SODIUM CHLORIDE 0.9% 100 ML IV SCH ×3 (00:30→16:10)
[2021-08-25] MEDS: INSULIN REGULAR 100 UNIT/ML SUBCUT SCH ×4 (01:11→18:06)
[2021-08-25] MEDS: OMEPRAZOLE ODT 20 MG TABLET PO SCH (05:41)
[2021-08-25] MEDS: methylPREDNISolone SOD SUC 40 MG/1 ML VIAL IV SCH ×3 (05:41→22:29)
[2021-08-25 06:01] LABS: Basophils % 0.2 % (0.0-0.8); Eosinophils % 0.1 % (0.00-10.9); Hematocrit 28.5 VOL% (42.0-52.0); Hemoglobin 8.7 GM/DL (14.0-18.0); Immature Granulocytes Absolute 0.92 #; Lymphocytes # 1.6 10*3/uL (1.4-4.0); Lymphocytes % 8.3 % (21.2-54.2); Mean Corpuscular HGB Conc 30.5 GM/DL (32-36); Mean Corpuscular Volume 82.1 FL (87-102); Monocytes # 1.5 10*3/uL (0.11-0.8); Monocytes % 7.8 % (1.7-12.7); Neutrophils % 78.6 % (38.7-73.9); Platelet Count 382 T/CUMM (130-400); Red Blood Count 3.47 MC/CUMM (3.8-5.5); Red Cell Distribution Width 19.8 % (9.3-17.3); White Blood Count 18.6 T/CUMM (4-12)
[2021-08-25] MEDS: hydrALAZINE 20 MG/1 ML VIAL IV PRN ×2 (06:25→12:11)
[2021-08-25 06:28] LABS: Anisocytosis 1+; Hypochromia 1+; Lymphocytes 7 % (20-55); Metamyelocytes 1 %; Microcytosis 1+; Nucleated Red Blood Cells 2 (0-5); Total Cells Counted 100
[2021-08-25 06:29] LABS: Polychromasia Slight
[2021-08-25] MEDS: FERROUS SULFATE 300 MG/5 ML UDCUP PER TUBE SCH ×2 (10:39→22:20)
[2021-08-25] MEDS: POTASSIUM BICARB EFFERVESCENT 20 MEQ TAB.EFF PEG SCH ×2 (10:39→22:20)
[2021-08-25] MEDS: MENTHOL/ZINC OXIDE OINT 71 GM JAR TOP SCH ×2 (10:39→22:35)
[2021-08-25] MEDS: INSULIN GLARGINE 100 UNIT/ML SUBCUT SCH (10:40)
[2021-08-25] MEDS: METOPROLOL TARTRATE 100 MG TABLET PER TUBE SCH ×2 (10:40→22:21)
[2021-08-25] MEDS: amLODIPine 10 MG TABLET PER TUBE SCH (10:41)
[2021-08-25] MEDS: levETIRAcetam LIQUID 100 MG/ML 30 ML/BOTTLE PEG SCH ×2 (10:43→22:30)
[2021-08-26] MEDS: PIPERACILLIN/TAZOBACTAM 3,375 MG in SODIUM CHLORIDE 0.9% 100 ML IV SCH ×2 (00:42→10:31)
[2021-08-26] MEDS: INSULIN REGULAR 100 UNIT/ML SUBCUT SCH ×4 (00:42→19:37)
[2021-08-26] MEDS: methylPREDNISolone SOD SUC 40 MG/1 ML VIAL IV SCH ×3 (05:30→22:00)
[2021-08-26] MEDS: OMEPRAZOLE ODT 20 MG TABLET PO SCH (05:30)
[2021-08-26 06:40] LABS: Basophils # 0.1 10*3/uL (0.0-0.2); Basophils % 0.4 % (0.0-0.8); Hematocrit 35.1 VOL% (42.0-52.0); Hemoglobin 10.7 GM/DL (14.0-18.0); Immature Granulocytes % 4.8 %; Immature Granulocytes Absolute 1.11 #; Lymphocytes # 2.3 10*3/uL (1.4-4.0); Mean Corpuscular HGB Conc 30.5 GM/DL (32-36); Mean Corpuscular Volume 83.2 FL (87-102); Mean Platelet Volume 9.9 FL (9.6-12.0); Monocytes # 1.6 10*3/uL (0.11-0.8); NRBC # 1.15 10*3/uL; Neutrophils % 77.8 % (38.7-73.9); Platelet Count 519 T/CUMM (130-400); Red Blood Count 4.22 MC/CUMM (3.8-5.5); Red Cell Distribution Width 20.4 % (9.3-17.3); White Blood Count 23.1 T/CUMM (4-12)
[2021-08-26 07:06] LABS: Anisocytosis 1+; Band Neutrophils 1 % (0-10); Lymphocytes 7 % (20-55); Metamyelocytes 4 %; Myelocytes 2 %; Nucleated Red Blood Cells 13 (0-5); Polychromasia Few
[2021-08-26 07:07] LABS: Ovalocytes Few; Platelet Estimate Increased
[2021-08-26 07:08] LABS: Total Cells Counted 100
[2021-08-26] MEDS: FERROUS SULFATE 300 MG/5 ML UDCUP PER TUBE SCH ×2 (10:29→22:00)
[2021-08-26] MEDS: POTASSIUM BICARB EFFERVESCENT 20 MEQ TAB.EFF PEG SCH ×2 (10:29→22:00)
[2021-08-26] MEDS: DOCUSATE SODIUM 100 MG/10 ML UDCUP PO PRN (10:29)
[2021-08-26] MEDS: levETIRAcetam LIQUID 100 MG/ML 30 ML/BOTTLE PEG SCH ×2 (10:30→22:00)
[2021-08-26] MEDS: METOPROLOL TARTRATE 100 MG TABLET PER TUBE SCH ×2 (10:31→22:00)
[2021-08-26] MEDS: MENTHOL/ZINC OXIDE OINT 71 GM JAR TOP SCH ×2 (10:32→22:00)
[2021-08-26] MEDS: amLODIPine 10 MG TABLET PER TUBE SCH (10:32)
[2021-08-26] MEDS: INSULIN GLARGINE 100 UNIT/ML SUBCUT SCH (10:33)
[2021-08-27] MEDS: INSULIN REGULAR 100 UNIT/ML SUBCUT SCH ×4 (00:35→18:48)
[2021-08-27] MEDS: AZITHROMYCIN INJ 500 MG in SODIUM CHLORIDE 0.9% 250 ML IV SCH (00:37)
[2021-08-27 04:05] LABS: Basophils # 0.1 10*3/uL (0.0-0.2); Basophils % 0.4 % (0.0-0.8); Hematocrit 30.8 VOL% (42.0-52.0); Hemoglobin 9.4 GM/DL (14.0-18.0); Immature Granulocytes % 5.7 %; Immature Granulocytes Absolute 1.03 #; Lymphocytes # 1.4 10*3/uL (1.4-4.0); Lymphocytes % 7.7 % (21.2-54.2); Mean Corpuscular HGB Conc 30.5 GM/DL (32-36); Mean Platelet Volume 9.9 FL (9.6-12.0); Monocytes # 1.4 10*3/uL (0.11-0.8); Monocytes % 7.5 % (1.7-12.7); NRBC # 0.41 10*3/uL; Neutrophils % 78.7 % (38.7-73.9); Platelet Count 407 T/CUMM (130-400); Red Blood Count 3.71 MC/CUMM (3.8-5.5)
[2021-08-27 04:25] LABS: Alanine Aminotransferase 58 U/L (16-61); Alkaline Phosphatase 126 U/L (45-117); Aspartate Amino Transferase 25 U/L (0-37); Bilirubin,Total < 0.39 MG/DL (0.20-1.00); Blood Urea Nitrogen 20 MG/DL (7-18); Calcium 8.7 MG/DL (8.5-10.1); Carbon Dioxide 29 MMOL/L (21-32); Chloride 103 MMOL/L (98-107); Estimated Glom Filtration Rate 149 ML/MIN; Glucose 135 MG/DL (74-106); Osmolality,Calculated 279.7 MOS/KG (273-304); Potassium 4.3 MMOL/L (3.5-5.1); Sodium 138 MMOL/L (136-145); Total Protein 6.6 G/DL (6.4-8.2)
[2021-08-27] MEDS: hydrALAZINE 20 MG/1 ML VIAL IV PRN (05:07)
[2021-08-27] MEDS: methylPREDNISolone SOD SUC 40 MG/1 ML VIAL IV SCH ×3 (05:07→22:23)
[2021-08-27 05:19] LABS: Lymphocytes 6 % (20-55); Nucleated Red Blood Cells 4 (0-5); Platelet Estimate Increased; Polychromasia 1+; Total Cells Counted 100
[2021-08-27] MEDS: OMEPRAZOLE ODT 20 MG TABLET PO SCH (06:36)
[2021-08-27] MEDS: FERROUS SULFATE 300 MG/5 ML UDCUP PER TUBE SCH ×2 (09:23→22:23)
[2021-08-27] MEDS: POTASSIUM BICARB EFFERVESCENT 20 MEQ TAB.EFF PEG SCH ×2 (09:24→22:23)
[2021-08-27] MEDS: SCOPOLAMINE 1.5 MG PATCH TRANSDERM SCH (09:24)
[2021-08-27] MEDS: amLODIPine 10 MG TABLET PER TUBE SCH (09:24)
[2021-08-27] MEDS: METOPROLOL TARTRATE 100 MG TABLET PER TUBE SCH ×2 (09:24→22:23)
[2021-08-27] MEDS: levETIRAcetam LIQUID 100 MG/ML 30 ML/BOTTLE PEG SCH ×2 (09:26→22:27)
[2021-08-27] MEDS: INSULIN GLARGINE 100 UNIT/ML SUBCUT SCH (09:33)
[2021-08-27] MEDS: MENTHOL/ZINC OXIDE OINT 71 GM JAR TOP SCH ×2 (11:39→22:23)
[2021-08-28] MEDS: AZITHROMYCIN INJ 500 MG in SODIUM CHLORIDE 0.9% 250 ML IV SCH (00:42)
[2021-08-28] MEDS: INSULIN REGULAR 100 UNIT/ML SUBCUT SCH ×4 (00:44→18:34)
[2021-08-28] MEDS: methylPREDNISolone SOD SUC 40 MG/1 ML VIAL IV SCH ×3 (05:47→20:24)
[2021-08-28] MEDS: OMEPRAZOLE ODT 20 MG TABLET PO SCH (05:47)
[2021-08-28 06:07] LABS: Basophils # 0.1 10*3/uL (0.0-0.2); Basophils % 0.3 % (0.0-0.8); Hematocrit 31.9 VOL% (42.0-52.0); Hemoglobin 9.7 GM/DL (14.0-18.0); Immature Granulocytes % 7.2 %; Immature Granulocytes Absolute 1.25 #; Lymphocytes # 1.2 10*3/uL (1.4-4.0); Lymphocytes % 7.1 % (21.2-54.2); Mean Corpuscular HGB Conc 30.4 GM/DL (32-36); Mean Corpuscular Volume 83.9 FL (87-102); Mean Platelet Volume 9.8 FL (9.6-12.0); Monocytes # 1.2 10*3/uL (0.11-0.8); Monocytes % 6.9 % (1.7-12.7); NRBC # 0.51 10*3/uL; Neutrophils % 78.5 % (38.7-73.9); Platelet Count 323 T/CUMM (130-400); Red Cell Distribution Width 20.6 % (9.3-17.3); White Blood Count 17.4 T/CUMM (4-12)
[2021-08-28 06:28] LABS: Osmolality,Calculated 271.4 MOS/KG (273-304); Potassium 4.4 MMOL/L (3.5-5.1)
[2021-08-28 06:32] LABS: Hypochromia 1+; Microcytosis 1+; Platelet Estimate Adequate; Total Cells Counted 100
[2021-08-28 06:35] LABS: Band Neutrophils 1 % (0-10); Lymphocytes 5 % (20-55); Nucleated Red Blood Cells 4 (0-5)
[2021-08-28] MEDS: INSULIN GLARGINE 100 UNIT/ML SUBCUT SCH (08:55)
[2021-08-28] MEDS: FERROUS SULFATE 300 MG/5 ML UDCUP PER TUBE SCH ×2 (09:03→20:23)
[2021-08-28] MEDS: levETIRAcetam LIQUID 100 MG/ML 30 ML/BOTTLE PEG SCH ×2 (09:04→20:24)
[2021-08-28] MEDS: amLODIPine 10 MG TABLET PER TUBE SCH (09:04)
[2021-08-28] MEDS: METOPROLOL TARTRATE 100 MG TABLET PER TUBE SCH ×2 (09:04→20:23)
[2021-08-28] MEDS: POTASSIUM BICARB EFFERVESCENT 20 MEQ TAB.EFF PEG SCH ×2 (09:04→20:23)
[2021-08-28] MEDS: MENTHOL/ZINC OXIDE OINT 71 GM JAR TOP SCH ×2 (14:41→20:23)
[2021-08-28] MEDS: hydrALAZINE 20 MG/1 ML VIAL IV PRN (20:24)
[2021-08-29] MEDS: INSULIN REGULAR 100 UNIT/ML SUBCUT SCH ×4 (01:24→18:38)
[2021-08-29] MEDS: AZITHROMYCIN INJ 500 MG in SODIUM CHLORIDE 0.9% 250 ML IV SCH (01:36)
[2021-08-29] MEDS: methylPREDNISolone SOD SUC 40 MG/1 ML VIAL IV SCH ×3 (05:17→22:01)
[2021-08-29] MEDS: OMEPRAZOLE ODT 20 MG TABLET PO SCH (06:34)
[2021-08-29] MEDS ORDERED: ONDANSETRON 4 MG/2 ML VIAL IV ONE (08:30)
[2021-08-29] MEDS: hydrALAZINE 20 MG/1 ML VIAL IV PRN (11:06)
[2021-08-29] MEDS: INSULIN GLARGINE 100 UNIT/ML SUBCUT SCH (11:52)
[2021-08-29 11:57] LABS: Basophils % 0.2 % (0.0-0.8); Hematocrit 30.6 VOL% (42.0-52.0); Hemoglobin 9.5 GM/DL (14.0-18.0); Immature Granulocytes % 4.5 %; Immature Granulocytes Absolute 0.95 #; Lymphocytes # 1.2 10*3/uL (1.4-4.0); Lymphocytes % 5.5 % (21.2-54.2); Mean Corpuscular Volume 83.2 FL (87-102); Mean Platelet Volume 9.7 FL (9.6-12.0); Monocytes # 1.4 10*3/uL (0.11-0.8); Monocytes % 6.6 % (1.7-12.7); Neutrophils % 83.2 % (38.7-73.9); Platelet Count 311 T/CUMM (130-400); Red Blood Count 3.68 MC/CUMM (3.8-5.5); White Blood Count 21.1 T/CUMM (4-12)
[2021-08-29 12:16] LABS: Lymphocytes 5 % (20-55); Nucleated Red Blood Cells 3 (0-5); Total Cells Counted 100
[2021-08-29 12:17] LABS: Hypochromia Slight; Microcytosis Slight; Platelet Estimate Adequate
[2021-08-29] MEDS: FERROUS SULFATE 300 MG/5 ML UDCUP PER TUBE SCH ×2 (12:35→22:02)
[2021-08-29] MEDS: amLODIPine 10 MG TABLET PER TUBE SCH (12:35)
[2021-08-29] MEDS: METOPROLOL TARTRATE 100 MG TABLET PER TUBE SCH ×2 (12:35→22:01)
[2021-08-29] MEDS: levETIRAcetam LIQUID 100 MG/ML 30 ML/BOTTLE PEG SCH ×2 (12:36→22:02)
[2021-08-29 12:42] LABS: Albumin 2.2 G/DL (3.4-5.0); Bilirubin,Total 0.4 MG/DL (0.20-1.00); Calcium 9.3 MG/DL (8.5-10.1); Osmolality,Calculated 273.2 MOS/KG (273-304); Potassium 4.3 MMOL/L (3.5-5.1); Total Protein 6.7 G/DL (6.4-8.2)
[2021-08-29] MEDS: POTASSIUM BICARB EFFERVESCENT 20 MEQ TAB.EFF PEG SCH ×2 (18:01→22:01)
[2021-08-29] MEDS: MENTHOL/ZINC OXIDE OINT 71 GM JAR TOP SCH ×2 (18:01→22:02)
[2021-08-30] MEDS: AZITHROMYCIN INJ 500 MG in SODIUM CHLORIDE 0.9% 250 ML IV SCH ×2 (00:15→22:38)
[2021-08-30] MEDS: INSULIN REGULAR 100 UNIT/ML SUBCUT SCH ×5 (05:12→23:59)
[2021-08-30] MEDS: OMEPRAZOLE ODT 20 MG TABLET PO SCH (06:00)
[2021-08-30] MEDS: methylPREDNISolone SOD SUC 40 MG/1 ML VIAL IV SCH ×3 (06:00→22:37)
[2021-08-30] MEDS: POTASSIUM BICARB EFFERVESCENT 20 MEQ TAB.EFF PEG SCH ×2 (10:47→22:37)
[2021-08-30] MEDS: METOPROLOL TARTRATE 100 MG TABLET PER TUBE SCH ×2 (10:47→22:36)
[2021-08-30] MEDS: FERROUS SULFATE 300 MG/5 ML UDCUP PER TUBE SCH ×2 (10:47→22:36)
[2021-08-30] MEDS: SCOPOLAMINE 1.5 MG PATCH TRANSDERM SCH (10:47)
[2021-08-30] MEDS: amLODIPine 10 MG TABLET PER TUBE SCH (10:48)
[2021-08-30] MEDS: MENTHOL/ZINC OXIDE OINT 71 GM JAR TOP SCH ×2 (10:50→22:37)
[2021-08-30] MEDS: INSULIN GLARGINE 100 UNIT/ML SUBCUT SCH (11:50)
[2021-08-30] MEDS: levETIRAcetam LIQUID 100 MG/ML 30 ML/BOTTLE PEG SCH ×2 (14:06→22:41)
[2021-08-31] MEDS: methylPREDNISolone SOD SUC 40 MG/1 ML VIAL IV SCH ×3 (05:52→22:14)
[2021-08-31] MEDS: OMEPRAZOLE ODT 20 MG TABLET PO SCH (05:52)
[2021-08-31] MEDS: hydrALAZINE 20 MG/1 ML VIAL IV PRN ×2 (05:53→13:17)
[2021-08-31] MEDS: INSULIN REGULAR 100 UNIT/ML SUBCUT SCH ×3 (06:20→18:45)
[2021-08-31] MEDS: INSULIN GLARGINE 100 UNIT/ML SUBCUT SCH (08:44)
[2021-08-31] MEDS: FERROUS SULFATE 300 MG/5 ML UDCUP PER TUBE SCH ×2 (08:45→22:14)
[2021-08-31] MEDS: DOCUSATE SODIUM 100 MG/10 ML UDCUP PO PRN ×2 (08:45→22:13)
[2021-08-31] MEDS: POTASSIUM BICARB EFFERVESCENT 20 MEQ TAB.EFF PEG SCH ×2 (08:45→22:13)
[2021-08-31] MEDS: amLODIPine 10 MG TABLET PER TUBE SCH (08:45)
[2021-08-31] MEDS: MENTHOL/ZINC OXIDE OINT 71 GM JAR TOP SCH ×2 (08:46→22:16)
[2021-08-31] MEDS: METOPROLOL TARTRATE 100 MG TABLET PER TUBE SCH ×2 (08:46→22:13)
[2021-08-31] MEDS: levETIRAcetam LIQUID 100 MG/ML 30 ML/BOTTLE PEG SCH (08:47)
[2021-08-31] MEDS ORDERED: TUBERCULIN SKIN TEST 0.1 ML SYRINGE INTRADERM ONE (15:00)
[2021-09-01] MEDS: levETIRAcetam LIQUID 100 MG/ML 30 ML/BOTTLE PEG SCH ×3 (00:17→22:39)
[2021-09-01] MEDS: INSULIN REGULAR 100 UNIT/ML SUBCUT SCH ×4 (00:36→18:25)
[2021-09-01] MEDS: hydrALAZINE 20 MG/1 ML VIAL IV PRN (04:20)
[2021-09-01] MEDS: OMEPRAZOLE ODT 20 MG TABLET PO SCH (05:32)
[2021-09-01] MEDS: methylPREDNISolone SOD SUC 40 MG/1 ML VIAL IV SCH ×3 (05:32→21:41)
[2021-09-01] MEDS: POTASSIUM BICARB EFFERVESCENT 20 MEQ TAB.EFF PEG SCH ×2 (09:47→21:42)
[2021-09-01] MEDS: INSULIN GLARGINE 100 UNIT/ML SUBCUT SCH (09:47)
[2021-09-01] MEDS: METOPROLOL TARTRATE 100 MG TABLET PER TUBE SCH ×2 (09:47→21:40)
[2021-09-01] MEDS: amLODIPine 10 MG TABLET PER TUBE SCH (09:47)
[2021-09-01] MEDS: FERROUS SULFATE 300 MG/5 ML UDCUP PER TUBE SCH ×2 (09:47→21:41)
[2021-09-01] MEDS: MENTHOL/ZINC OXIDE OINT 71 GM JAR TOP SCH ×2 (09:48→21:43)
[2021-09-01] MEDS: DOCUSATE SODIUM 100 MG/10 ML UDCUP PO PRN (21:41)
[2021-09-02] MEDS: hydrALAZINE 20 MG/1 ML VIAL IV PRN ×2 (00:01→04:45)
[2021-09-02] MEDS: INSULIN REGULAR 100 UNIT/ML SUBCUT SCH ×4 (00:01→18:43)
[2021-09-02] MEDS: methylPREDNISolone SOD SUC 40 MG/1 ML VIAL IV SCH ×3 (04:44→21:41)
[2021-09-02] MEDS: OMEPRAZOLE ODT 20 MG TABLET PO SCH (05:51)
[2021-09-02] MEDS ORDERED: metroNIDAZOLE INJ 500 MG/100 ML PREMIX IV ONE (07:30)
[2021-09-02] MEDS ORDERED: AZITHROMYCIN INJ 500 MG in SODIUM CHLORIDE 0.9% 250 ML IV ONE (07:30)
[2021-09-02] MEDS: INSULIN GLARGINE 100 UNIT/ML SUBCUT SCH (09:02)
[2021-09-02] MEDS: amLODIPine 10 MG TABLET PER TUBE SCH (09:03)
[2021-09-02] MEDS: METOPROLOL TARTRATE 100 MG TABLET PER TUBE SCH ×2 (09:03→21:42)
[2021-09-02] MEDS: FERROUS SULFATE 300 MG/5 ML UDCUP PER TUBE SCH ×2 (09:03→21:41)
[2021-09-02] MEDS: LOSARTAN 25 MG TABLET PEG SCH ×2 (09:03→21:41)
[2021-09-02] MEDS: POTASSIUM BICARB EFFERVESCENT 20 MEQ TAB.EFF PEG SCH ×2 (09:04→21:42)
[2021-09-02] MEDS: levETIRAcetam LIQUID 100 MG/ML 30 ML/BOTTLE PEG SCH ×2 (09:04→22:35)
[2021-09-02] MEDS: MENTHOL/ZINC OXIDE OINT 71 GM JAR TOP SCH ×2 (09:04→21:42)
[2021-09-02] MEDS: SCOPOLAMINE 1.5 MG PATCH TRANSDERM SCH (09:06)
[2021-09-02] MEDS ORDERED: cefTRIAXone 1,000 MG in SODIUM CHLORIDE 0.9% 100 ML IV ONE (11:00)
[2021-09-02] MEDS: DOCUSATE SODIUM 100 MG/10 ML UDCUP PO PRN (21:41)
[2021-09-03] MEDS: INSULIN REGULAR 100 UNIT/ML SUBCUT SCH ×4 (00:50→18:36)
[2021-09-03] MEDS ORDERED: ACETAMINOPHEN 325 MG/10.15 ML UDCUP PO PRN (00:54)
[2021-09-03 01:38] LABS: Basophils % 0.1 % (0.0-0.8); Hematocrit 30.3 VOL% (42.0-52.0); Hemoglobin 9.3 GM/DL (14.0-18.0); Immature Granulocytes % 1.6 %; Immature Granulocytes Absolute 0.24 #; Lymphocytes # 0.5 10*3/uL (1.4-4.0); Mean Corpuscular HGB Conc 30.7 GM/DL (32-36); Mean Corpuscular Volume 84.4 FL (87-102); Mean Platelet Volume 9.9 FL (9.6-12.0); Monocytes # 0.6 10*3/uL (0.11-0.8); Monocytes % 3.7 % (1.7-12.7); NRBC # 0.12 10*3/uL; Neutrophils % 91.6 % (38.7-73.9); Platelet Count 200 T/CUMM (130-400); Red Blood Count 3.59 MC/CUMM (3.8-5.5); Red Cell Distribution Width 20.8 % (9.3-17.3); White Blood Count 15.2 T/CUMM (4-12)
[2021-09-03 02:00] LABS: Calcium 8.7 MG/DL (8.5-10.1); Osmolality,Calculated 277.1 MOS/KG (273-304); Potassium 4.5 MMOL/L (3.5-5.1)
[2021-09-03 02:10] LABS: Anisocytosis 1+; Lymphocytes 1 % (20-55); Platelet Estimate Normal; Total Cells Counted 100
[2021-09-03] MEDS: methylPREDNISolone SOD SUC 40 MG/1 ML VIAL IV SCH ×3 (05:49→22:51)
[2021-09-03] MEDS: OMEPRAZOLE ODT 20 MG TABLET PO SCH (05:49)
[2021-09-03] MEDS: FERROUS SULFATE 300 MG/5 ML UDCUP PER TUBE SCH ×2 (09:20→22:52)
[2021-09-03] MEDS: POTASSIUM BICARB EFFERVESCENT 20 MEQ TAB.EFF PEG SCH ×2 (09:21→22:52)
[2021-09-03] MEDS: cefTRIAXone 1,000 MG in SODIUM CHLORIDE 0.9% 100 ML IV SCH (09:21)
[2021-09-03] MEDS: amLODIPine 10 MG TABLET PER TUBE SCH (09:22)
[2021-09-03] MEDS: LOSARTAN 25 MG TABLET PEG SCH ×2 (09:22→22:53)
[2021-09-03] MEDS: METOPROLOL TARTRATE 100 MG TABLET PER TUBE SCH ×2 (09:22→22:52)
[2021-09-03] MEDS: levETIRAcetam LIQUID 100 MG/ML 30 ML/BOTTLE PEG SCH ×2 (09:23→22:56)
[2021-09-03] MEDS: INSULIN GLARGINE 100 UNIT/ML SUBCUT SCH (09:50)
[2021-09-03] MEDS: MENTHOL/ZINC OXIDE OINT 71 GM JAR TOP SCH ×2 (09:51→22:58)
[2021-09-03] MEDS: AZITHROMYCIN INJ 500 MG in SODIUM CHLORIDE 0.9% 250 ML IV SCH (11:11)
[2021-09-04] MEDS: INSULIN REGULAR 100 UNIT/ML SUBCUT SCH ×4 (00:44→17:15)
[2021-09-04] MEDS: methylPREDNISolone SOD SUC 40 MG/1 ML VIAL IV SCH ×3 (04:43→23:45)
[2021-09-04] MEDS: OMEPRAZOLE ODT 20 MG TABLET PO SCH ×2 (04:43→05:55)
[2021-09-04 08:54] LABS: Basophils % 0.1 % (0.0-0.8); Hematocrit 30.8 VOL% (42.0-52.0); Hemoglobin 9.6 GM/DL (14.0-18.0); Immature Granulocytes % 1.5 %; Immature Granulocytes Absolute 0.26 #; Lymphocytes # 0.6 10*3/uL (1.4-4.0); Lymphocytes % 3.3 % (21.2-54.2); Mean Corpuscular HGB Conc 31.2 GM/DL (32-36); Mean Corpuscular Volume 83.9 FL (87-102); Mean Platelet Volume 10.4 FL (9.6-12.0); Monocytes # 0.5 10*3/uL (0.11-0.8); NRBC # 0.08 10*3/uL; Neutrophils % 92.1 % (38.7-73.9); Platelet Count 195 T/CUMM (130-400); Red Blood Count 3.67 MC/CUMM (3.8-5.5); Red Cell Distribution Width 20.8 % (9.3-17.3); White Blood Count 16.8 T/CUMM (4-12)
[2021-09-04 09:31] LABS: Anisocytosis 2+; Band Neutrophils 2 % (0-10); Lymphocytes 5 % (20-55); Myelocytes 1 %; Nucleated Red Blood Cells 3 (0-5); Platelet Estimate Normal; Total Cells Counted 100
[2021-09-04 09:32] LABS: Burr Cells Few
[2021-09-04] MEDS: INSULIN GLARGINE 100 UNIT/ML SUBCUT SCH (10:47)
[2021-09-04] MEDS: METOPROLOL TARTRATE 100 MG TABLET PER TUBE SCH ×2 (10:48→23:42)
[2021-09-04] MEDS: FERROUS SULFATE 300 MG/5 ML UDCUP PER TUBE SCH ×2 (10:48→23:45)
[2021-09-04] MEDS: LOSARTAN 50 MG TABLET PEG SCH ×2 (10:48→23:42)
[2021-09-04] MEDS: amLODIPine 10 MG TABLET PER TUBE SCH (10:48)
[2021-09-04] MEDS: cefTRIAXone 1,000 MG in SODIUM CHLORIDE 0.9% 100 ML IV SCH (10:49)
[2021-09-04] MEDS: POTASSIUM BICARB EFFERVESCENT 20 MEQ TAB.EFF PEG SCH ×2 (10:49→23:45)
[2021-09-04] MEDS: MENTHOL/ZINC OXIDE OINT 71 GM JAR TOP SCH ×2 (10:49→23:46)
[2021-09-04] MEDS: AZITHROMYCIN INJ 500 MG in SODIUM CHLORIDE 0.9% 250 ML IV SCH (10:50)
[2021-09-04] MEDS: levETIRAcetam LIQUID 100 MG/ML 30 ML/BOTTLE PEG SCH ×2 (10:59→23:49)
[2021-09-05] MEDS: INSULIN REGULAR 100 UNIT/ML SUBCUT SCH ×4 (01:18→18:19)
[2021-09-05] MEDS: OMEPRAZOLE ODT 20 MG TABLET PO SCH ×2 (05:28→06:15)
[2021-09-05] MEDS: methylPREDNISolone SOD SUC 40 MG/1 ML VIAL IV SCH ×3 (05:28→21:37)
[2021-09-05 05:37] LABS: Basophils % 0.1 % (0.0-0.8); Hematocrit 31.5 VOL% (42.0-52.0); Hemoglobin 9.8 GM/DL (14.0-18.0); Immature Granulocytes % 1.6 %; Immature Granulocytes Absolute 0.22 #; Lymphocytes # 0.5 10*3/uL (1.4-4.0); Lymphocytes % 3.2 % (21.2-54.2); Mean Corpuscular HGB Conc 31.1 GM/DL (32-36); Mean Corpuscular Volume 84.5 FL (87-102); Mean Platelet Volume 10.2 FL (9.6-12.0); Monocytes # 0.5 10*3/uL (0.11-0.8); Monocytes % 3.3 % (1.7-12.7); NRBC # 0.05 10*3/uL; Neutrophils % 91.8 % (38.7-73.9); Platelet Count 157 T/CUMM (130-400); Red Blood Count 3.73 MC/CUMM (3.8-5.5); Red Cell Distribution Width 20.2 % (9.3-17.3)
[2021-09-05 06:04] LABS: Band Neutrophils 2 % (0-10); Nucleated Red Blood Cells 1 (0-5); Platelet Estimate Normal; Total Cells Counted 100
[2021-09-05 06:05] LABS: Anisocytosis 1+; Polychromasia Slight
[2021-09-05] MEDS: SCOPOLAMINE 1.5 MG PATCH TRANSDERM SCH (09:54)
[2021-09-05] MEDS: INSULIN GLARGINE 100 UNIT/ML SUBCUT SCH (09:55)
[2021-09-05] MEDS: cefTRIAXone 1,000 MG in SODIUM CHLORIDE 0.9% 100 ML IV SCH (09:55)
[2021-09-05] MEDS: FERROUS SULFATE 300 MG/5 ML UDCUP PER TUBE SCH ×2 (10:02→21:36)
[2021-09-05] MEDS: POTASSIUM BICARB EFFERVESCENT 20 MEQ TAB.EFF PEG SCH ×2 (10:02→21:39)
[2021-09-05] MEDS: AZITHROMYCIN INJ 500 MG in SODIUM CHLORIDE 0.9% 250 ML IV SCH (10:03)
[2021-09-05] MEDS: LOSARTAN 50 MG TABLET PEG SCH ×2 (10:03→21:38)
[2021-09-05] MEDS: METOPROLOL TARTRATE 100 MG TABLET PER TUBE SCH ×2 (10:03→21:37)
[2021-09-05] MEDS: MENTHOL/ZINC OXIDE OINT 71 GM JAR TOP SCH ×2 (10:03→21:38)
[2021-09-05] MEDS: amLODIPine 10 MG TABLET PER TUBE SCH (10:03)
[2021-09-05] MEDS: levETIRAcetam LIQUID 100 MG/ML 30 ML/BOTTLE PEG SCH ×2 (10:04→21:36)
[2021-09-06] MEDS: INSULIN REGULAR 100 UNIT/ML SUBCUT SCH ×5 (00:47→23:59)
[2021-09-06] MEDS: methylPREDNISolone SOD SUC 40 MG/1 ML VIAL IV SCH ×3 (05:41→20:18)
[2021-09-06] MEDS: OMEPRAZOLE ODT 20 MG TABLET PO SCH (05:42)
[2021-09-06 06:20] LABS: Basophils % 0.1 % (0.0-0.8); Hemoglobin 10.5 GM/DL (14.0-18.0); Immature Granulocytes % 1.6 %; Immature Granulocytes Absolute 0.27 #; Lymphocytes # 0.8 10*3/uL (1.4-4.0); Lymphocytes % 4.7 % (21.2-54.2); Mean Corpuscular HGB Conc 30.9 GM/DL (32-36); Mean Corpuscular Volume 84.4 FL (87-102); Monocytes # 0.8 10*3/uL (0.11-0.8); Monocytes % 4.7 % (1.7-12.7); NRBC # 0.14 10*3/uL; Neutrophils % 88.9 % (38.7-73.9); Platelet Count 175 T/CUMM (130-400); Red Blood Count 4.03 MC/CUMM (3.8-5.5); Red Cell Distribution Width 20.5 % (9.3-17.3); White Blood Count 16.9 T/CUMM (4-12)
[2021-09-06 06:43] LABS: Lymphocytes 3 % (20-55); Platelet Estimate Adequate; Total Cells Counted 100
[2021-09-06] MEDS: FERROUS SULFATE 300 MG/5 ML UDCUP PER TUBE SCH ×2 (09:25→20:17)
[2021-09-06] MEDS: POTASSIUM BICARB EFFERVESCENT 20 MEQ TAB.EFF PEG SCH ×2 (09:26→20:17)
[2021-09-06] MEDS: amLODIPine 10 MG TABLET PER TUBE SCH (09:26)
[2021-09-06] MEDS: LOSARTAN 50 MG TABLET PEG SCH ×2 (09:26→20:17)
[2021-09-06] MEDS: METOPROLOL TARTRATE 100 MG TABLET PER TUBE SCH ×2 (09:26→21:25)
[2021-09-06] MEDS: cefTRIAXone 1,000 MG in SODIUM CHLORIDE 0.9% 100 ML IV SCH (09:27)
[2021-09-06] MEDS: AZITHROMYCIN INJ 500 MG in SODIUM CHLORIDE 0.9% 250 ML IV SCH (09:27)
[2021-09-06] MEDS: INSULIN GLARGINE 100 UNIT/ML SUBCUT SCH (09:28)
[2021-09-06] MEDS: ISOSORBIDE MONONITRATE 30 MG TABLET PO SCH (09:40)
[2021-09-06] MEDS: levETIRAcetam LIQUID 100 MG/ML 30 ML/BOTTLE PEG SCH (09:40)
[2021-09-06] MEDS ORDERED: LORazepam 2 MG/1 ML VIAL IV ONE (10:02)
[2021-09-06] MEDS ORDERED: LORazepam 2 MG/1 ML VIAL ONE (10:06)
[2021-09-06] MEDS: hydrALAZINE 20 MG/1 ML VIAL IV PRN (10:14)
[2021-09-06] MEDS ORDERED: PHENYTOIN 100 MG/2 ML VIAL IV ONE (10:19)
[2021-09-06] MEDS ORDERED: PHENYTOIN 100 MG/2 ML VIAL IV SCH ×2 (10:30→11:30)
[2021-09-06] MEDS: hydrOXYzine HCL 2 MG/ML 30 ML/BOTTLE PER TUBE SCH ×2 (11:19→21:28)
[2021-09-06] MEDS: MENTHOL/ZINC OXIDE OINT 71 GM JAR TOP SCH ×2 (11:40→20:43)
[2021-09-06 13:20] VITALS: BP 172/92
[2021-09-06 22:55] LABS: Calcium 8.5 MG/DL (8.5-10.1); Osmolality,Calculated 277.2 MOS/KG (273-304); Potassium 4.7 MMOL/L (3.5-5.1)
[2021-09-06 22:59] LABS: Alanine Aminotransferase 56 U/L (16-61); Albumin 1.8 G/DL (3.4-5.0); Alkaline Phosphatase 127 U/L (45-117); Aspartate Amino Transferase 21 U/L (0-37); Bilirubin,Total < 0.39 MG/DL (0.20-1.00); Blood Urea Nitrogen 23 MG/DL (7-18); Calcium 8.5 MG/DL (8.5-10.1); Carbon Dioxide 28 MMOL/L (21-32); Chloride 103 MMOL/L (98-107); Estimated Glom Filtration Rate 149 ML/MIN; Glucose 206 MG/DL (74-106); Potassium 4.2 MMOL/L (3.5-5.1); Sodium 136 MMOL/L (136-145); Total Protein 5.3 G/DL (6.4-8.2)
[2021-09-07] MEDS: hydrALAZINE 20 MG/1 ML VIAL IV PRN (02:05)
[2021-09-07 04:15] LABS: Basophils % 0.1 % (0.0-0.8); Hematocrit 28.7 VOL% (42.0-52.0); Hemoglobin 8.6 GM/DL (14.0-18.0); Immature Granulocytes % 1.8 %; Immature Granulocytes Absolute 0.17 #; Lymphocytes # 0.3 10*3/uL (1.4-4.0); Lymphocytes % 3.3 % (21.2-54.2); Mean Corpuscular Volume 86.4 FL (87-102); Monocytes # 0.3 10*3/uL (0.11-0.8); Monocytes % 3.4 % (1.7-12.7); NRBC # 0.04 10*3/uL; Neutrophils % 91.4 % (38.7-73.9); Platelet Count 157 T/CUMM (130-400); Red Blood Count 3.32 MC/CUMM (3.8-5.5); Red Cell Distribution Width 20.3 % (9.3-17.3); White Blood Count 9.6 T/CUMM (4-12)
[2021-09-07 04:22] LABS: Calcium 8.7 MG/DL (8.5-10.1); Osmolality,Calculated 280.8 MOS/KG (273-304); Potassium 4.2 MMOL/L (3.5-5.1)
[2021-09-07 04:27] LABS: Alanine Aminotransferase 54 U/L (16-61); Albumin 1.9 G/DL (3.4-5.0); Alkaline Phosphatase 115 U/L (45-117); Aspartate Amino Transferase 20 U/L (0-37); Bilirubin,Total < 0.39 MG/DL (0.20-1.00); Blood Urea Nitrogen 22 MG/DL (7-18); Calcium 8.6 MG/DL (8.5-10.1); Carbon Dioxide 27 MMOL/L (21-32); Chloride 103 MMOL/L (98-107); Estimated Glom Filtration Rate 149 ML/MIN; Glucose 177 MG/DL (74-106); Potassium 4.1 MMOL/L (3.5-5.1); Sodium 136 MMOL/L (136-145); Total Protein 5.5 G/DL (6.4-8.2)
[2021-09-07 04:46] LABS: Hypochromia Slight; Lymphocytes 1 % (20-55); Microcytosis Slight; Platelet Estimate Adequate; Total Cells Counted 100
[2021-09-07] MEDS: methylPREDNISolone SOD SUC 40 MG/1 ML VIAL IV SCH ×3 (06:22→20:51)
[2021-09-07] MEDS: OMEPRAZOLE ODT 20 MG TABLET PO SCH (06:22)
[2021-09-07] MEDS: INSULIN REGULAR 100 UNIT/ML SUBCUT SCH ×3 (06:22→18:58)
[2021-09-07] MEDS: amLODIPine 10 MG TABLET PER TUBE SCH (09:22)
[2021-09-07] MEDS: ISOSORBIDE MONONITRATE 30 MG TABLET PO SCH (09:22)
[2021-09-07] MEDS: LOSARTAN 50 MG TABLET PEG SCH ×2 (09:22→20:51)
[2021-09-07] MEDS: cefTRIAXone 1,000 MG in SODIUM CHLORIDE 0.9% 100 ML IV SCH (09:23)
[2021-09-07] MEDS: DOCUSATE SODIUM 100 MG/10 ML UDCUP PO PRN (09:23)
[2021-09-07] MEDS: MENTHOL/ZINC OXIDE OINT 71 GM JAR TOP SCH ×2 (09:23→20:52)
[2021-09-07] MEDS: POTASSIUM BICARB EFFERVESCENT 20 MEQ TAB.EFF PEG SCH ×2 (09:24→20:51)
[2021-09-07] MEDS: FERROUS SULFATE 300 MG/5 ML UDCUP PER TUBE SCH ×2 (09:24→20:51)
[2021-09-07] MEDS: INSULIN GLARGINE 100 UNIT/ML SUBCUT SCH (09:24)
[2021-09-07] MEDS: AZITHROMYCIN INJ 500 MG in SODIUM CHLORIDE 0.9% 250 ML IV SCH (09:25)
[2021-09-07] MEDS: METOPROLOL TARTRATE 100 MG TABLET PER TUBE SCH ×2 (09:29→20:51)
[2021-09-08] MEDS: INSULIN REGULAR 100 UNIT/ML SUBCUT SCH ×5 (00:54→23:31)
[2021-09-08] MEDS: methylPREDNISolone SOD SUC 40 MG/1 ML VIAL IV SCH ×3 (04:38→20:04)
[2021-09-08 05:07] LABS: Alanine Aminotransferase 55 U/L (16-61); Albumin 1.9 G/DL (3.4-5.0); Alkaline Phosphatase 130 U/L (45-117); Aspartate Amino Transferase 20 U/L (0-37); Bilirubin,Total < 0.39 MG/DL (0.20-1.00); Blood Urea Nitrogen 21 MG/DL (7-18); Calcium 8.9 MG/DL (8.5-10.1); Carbon Dioxide 29 MMOL/L (21-32); Chloride 104 MMOL/L (98-107); Estimated Glom Filtration Rate 148 ML/MIN; Glucose 157 MG/DL (74-106); Osmolality,Calculated 278.8 MOS/KG (273-304); Potassium 4.7 MMOL/L (3.5-5.1); Sodium 137 MMOL/L (136-145); Total Protein 5.6 G/DL (6.4-8.2)
[2021-09-08] MEDS: OMEPRAZOLE ODT 20 MG TABLET PO SCH (07:32)
[2021-09-08] MEDS: INSULIN GLARGINE 100 UNIT/ML SUBCUT SCH (08:12)
[2021-09-08] MEDS: FERROUS SULFATE 300 MG/5 ML UDCUP PER TUBE SCH ×2 (08:12→20:05)
[2021-09-08] MEDS: cefTRIAXone 1,000 MG in SODIUM CHLORIDE 0.9% 100 ML IV SCH (08:13)
[2021-09-08] MEDS: amLODIPine 10 MG TABLET PER TUBE SCH (08:13)
[2021-09-08] MEDS: POTASSIUM BICARB EFFERVESCENT 20 MEQ TAB.EFF PEG SCH ×2 (08:13→20:05)
[2021-09-08] MEDS: ISOSORBIDE MONONITRATE 30 MG TABLET PO SCH (08:13)
[2021-09-08] MEDS: SCOPOLAMINE 1.5 MG PATCH TRANSDERM SCH (08:14)
[2021-09-08] MEDS: LOSARTAN 50 MG TABLET PEG SCH ×2 (08:14→20:04)
[2021-09-08] MEDS: METOPROLOL TARTRATE 100 MG TABLET PER TUBE SCH ×2 (09:48→20:04)
[2021-09-08] MEDS: MENTHOL/ZINC OXIDE OINT 71 GM JAR TOP SCH ×2 (09:48→20:05)
[2021-09-09] MEDS: hydrALAZINE 20 MG/1 ML VIAL IV PRN (03:43)
[2021-09-09] MEDS: methylPREDNISolone SOD SUC 40 MG/1 ML VIAL IV SCH ×3 (06:05→20:22)
[2021-09-09] MEDS: INSULIN REGULAR 100 UNIT/ML SUBCUT SCH ×3 (06:05→17:30)
[2021-09-09] MEDS: OMEPRAZOLE ODT 20 MG TABLET PO SCH (06:06)
[2021-09-09] MEDS: MENTHOL/ZINC OXIDE OINT 71 GM JAR TOP SCH ×2 (08:43→20:22)
[2021-09-09] MEDS: cefTRIAXone 1,000 MG in SODIUM CHLORIDE 0.9% 100 ML IV SCH (08:43)
[2021-09-09] MEDS: INSULIN GLARGINE 100 UNIT/ML SUBCUT SCH (08:44)
[2021-09-09] MEDS: FERROUS SULFATE 300 MG/5 ML UDCUP PER TUBE SCH ×2 (08:44→20:22)
[2021-09-09] MEDS: ISOSORBIDE MONONITRATE 30 MG TABLET PO SCH (08:44)
[2021-09-09] MEDS: POTASSIUM BICARB EFFERVESCENT 20 MEQ TAB.EFF PEG SCH ×2 (08:44→20:22)
[2021-09-09] MEDS: amLODIPine 10 MG TABLET PER TUBE SCH (08:44)
[2021-09-09] MEDS: LOSARTAN 50 MG TABLET PEG SCH ×2 (08:45→21:05)
[2021-09-09] MEDS: METOPROLOL TARTRATE 100 MG TABLET PER TUBE SCH ×2 (11:00→20:22)
[2021-09-10] MEDS: INSULIN REGULAR 100 UNIT/ML SUBCUT SCH ×2 (00:12→05:57)
[2021-09-10] MEDS: methylPREDNISolone SOD SUC 40 MG/1 ML VIAL IV SCH (04:05)
[2021-09-10] MEDS: hydrALAZINE 20 MG/1 ML VIAL IV PRN ×2 (04:06→08:40)
[2021-09-10] MEDS: OMEPRAZOLE ODT 20 MG TABLET PO SCH (06:03)
[2021-09-10] MEDS: FERROUS SULFATE 300 MG/5 ML UDCUP PER TUBE SCH (08:24)
[2021-09-10] MEDS: MENTHOL/ZINC OXIDE OINT 71 GM JAR TOP SCH (08:24)
[2021-09-10] MEDS: LOSARTAN 50 MG TABLET PEG SCH (08:24)
[2021-09-10] MEDS: ISOSORBIDE MONONITRATE 30 MG TABLET PO SCH (08:24)
[2021-09-10] MEDS: amLODIPine 10 MG TABLET PER TUBE SCH (08:25)
[2021-09-10] MEDS: POTASSIUM BICARB EFFERVESCENT 20 MEQ TAB.EFF PEG SCH (08:25)
[2021-09-10] MEDS: METOPROLOL TARTRATE 100 MG TABLET PER TUBE SCH (08:25)
[2021-09-10] MEDS: INSULIN GLARGINE 100 UNIT/ML SUBCUT SCH (08:39)
[2021-09-10] MEDS: cefTRIAXone 1,000 MG in SODIUM CHLORIDE 0.9% 100 ML IV SCH (08:39)
== END 2021-09-10 09:48 | DRG 177 ==
LOC: N.ED 13:17 → SUATTDRO 15:14 → N.EDINP 15:14 → N.5E 16:18 → N.CC 09-06 10:38
PROVIDERS: ADMIT Internal Medicine; ATTEND Internal Medicine